=== PATIENT | male | born 1950 | race Caucasian/White ===

== ENCOUNTER 2016-11-20 14:41 | Inpatient (IN) | payer OTHER ==
[2016-11-20] MEDS ORDERED: VANCOMYCIN 1,000 MG in DEXTROSE 5%-WATER - 250 ML IVPB ONE (16:18)
--- NOTE | 2016-11-20 16:22 | PDOC ---
History of Present Illness - General Chief Complaint: Wound Stated Complaint: (WOUND CARE SENT) Time Seen by Provider: 11/20/16 15:25 History Source: Patient Exam Limitations: Clinical Condition - History of Present Illness Initial Comments: 11/20/16 16:29 Patient is a 66 year old male with significant PMH of diabetic foot ulcer, HTN, HLD, Viral Hepatitis? & [place] (June 2016) who presents to ED from wound care for lethargy/altered mental status. Patient has a chronic left foot ulcer that has opened up in last few days. When seen in wound care, patient was noted to be more lethargic & less verbal than usual. He had a mild fever of 100.8 so they sent him down to ED. He is verbally responsive and aware of his situation, but states he is more tired than usual and feels feverish. Denes cough, dysuria , headache, SOB, chest pain or any other ROS. Left foot ulcer with reddish-yellow pus output. Chronic venous changes bilaterally but more swollen and warm at left foot up to knee. Past History - Travel Traveled outside of the country in the last 30 days: No Close contact w/someone who was outside of country & ill: No - Past Medical History Allergies/Adverse Reactions: Allergies Allergy/AdvReac Type Severity Reaction Status Date / Time No Known Allergies Allergy Verified 11/20/16 14:57 Home Medications: Ambulatory Orders Unobtainable [Unobtainable] 11/20/16 Diabetes: Yes GI Disorders: Yes (GERD, chronic viral hepatitis) Disorders: Yes (BPH) HTN: Yes Hypercholesterolemia: Yes Psychiatric Problems: Yes (Major depressive disorder, Schizoaffective) - Surgical History Appendectomy: Yes Orthopedic Surgery: Yes (left hallux amp, left knee repair) - Immunization History Immunization Up to Date: Yes - Psycho/Social/Smoking Cessation Hx Anxiety: No Suicidal Ideation: No Smoking Status: No Smoking History: Current every day smoker Have you smoked in the past 12 months: Yes Number of Cigarettes Smoked Daily: 6 Information on smoking cessation initiated: No 'Breaking Loose' booklet given: 06/23/16 Hx Alcohol Use: No Drug/Substance Use Hx: Yes (Heroin) Substance Use Type: Heroin Hx Substance Use Treatment: Yes Review of Systems - Review of Systems Able to Perform ROS?: Yes Is the patient limited Maori proficient: No Constitutional: Yes: Fever, Malaise, Weakness. No: Chills HEENTM: No: Blurred Vision, Nose Congestion, Throat Pain, Difficulty Swallowing Respiratory: No: Cough, Shortness of Breath, Wheezing, Productive cough Cardiac (ROS): No: Chest Pain, Irregular Heart Rate, Lightheadedness, Palpitations, Syncope ABD/GI: No: Constipated, Diarrhea, Nausea, Vomiting : No: Burning, Dysuria Musculoskeletal: No: Back Pain Integumentary: Yes: Change in Color, Erythema. No: Bruising Neurological: No: Headache, Numbness, Tingling, Tremors All Other Systems: Reviewed and Negative *Physical Exam - Vital Signs Last Vital Signs Temp Pulse Resp BP Pulse Ox 100.8 F H 73 17 135/73 94 L 11/20/16 14:57 11/20/16 14:57 11/20/16 14:57 11/20/16 14:57 11/20/16 14:57 - Physical Exam General Appearance: Yes: Appropriately Dressed (but dirty shirt and ripped socks ), Obese, Other (lethargic) HEENT: positive: EOMI, RAN, Pharynx Normal Neck: positive: Trachea midline, Normal Thyroid, Supple Respiratory/Chest: positive: Lungs Clear, Normal Breath Sounds Cardiovascular: positive: Regular Rhythm, Regular Rate, S1, S2 Gastrointestinal/Abdominal: positive: Normal Bowel Sounds, Flat, Soft Musculoskeletal: positive: Normal Inspection Extremity: positive: Other (chronic venous changes in bilateral LE; increased warmth/tenderness/erythema left foot up to kneecap; oozing left medial foot ulcer; +1 palpable pulses bilateral feet) Neurologic: positive: health counselor II-XII NML intact, Motor Strength 5/5. negative: Fully Oriented, Normal Mood/Affect ED Treatment Course - LABORATORY CBC & Chemistry Diagram: 11/20/16 16:35 - RADIOLOGY Radiology Studies Ordered: Category Date Time Status CHEST X-RAY PORTABLE* [RAD] Stat Radiology 11/20/16 15:58 Ordered FOOT-LEFT [RAD] Stat Radiology 11/20/16 16:18 Ordered DUPLEX ART. LOWER COMPL US [US] Stat Ultrasound 11/20/16 16:17 Ordered DUPLEX VASCUL US-1 LEG [US] Stat Ultrasound 11/20/16 16:17 Ordered Medical Decision Making - Medical Decision Making 11/20/16 16:53 Patient is unable to provide meaningful history due to clinical condition. Wound culture, foot XRay, arterial & venous US imaging ordered on left foot. Ordered CBC, CMP, Lactic acid, cultures, CXR to r/o other etiologies of lethargy & fever. Consulted ID after starting Vancomycin & Zosyn. *DC/Admit/Observation/Transfer Diagnosis at time of Disposition: Diabetic foot ulcer - Discharge Dispostion Admit: Yes
[2016-11-20] MEDS ORDERED: ACETAMINOPHEN 500 MG TABLET (FP) PO ONE (16:48)
[2016-11-20] MEDS ORDERED: ACETAMINOPHEN 325 MG TABLET (FP) ONE (16:50)
[2016-11-20] MEDS ORDERED: PIPERACILLIN/TAZOB 3.375 GM 50 ML IVPB ONE (16:50)
[2016-11-20] MEDS ORDERED: VANCOMYCIN 1 GRAM (PRE-DOCKED) 250 ML IVPB ONE (16:50)
[2016-11-20 17:05] LABS: BASOPHIL 0.6 % (0-2.0); MCH 25.8 pg (25.7-33.7); MCHC 32.3 g/dl (32.0-35.9); MEAN PLT VOLUME 8.3 fl (7.5-11.1); NEUTROPHILS 83.3 % (42.8-82.8); PLATELET COUNT 297 K/MM3 (134-434); RDW 16.9 % (11.9-15.9); WHITE BLOOD COUNT 9.9 K/mm3 (4.0-10.0)
[2016-11-20 17:10] LABS: ALK PHOS 92 U/L (45-117); ANION GAP 8 (8-16); BILIRUBIN,TOTAL 0.3 mg/dL (0.2-1.0); CALCIUM 9.1 mg/dL (8.5-10.1); CO2 30 mmol/L (21-32); GLUCOSE,RANDOM 138 mg/dL (74-106); SGPT/ALT 12 U/L (12-78); TOT PROT 7.3 g/dl (6.4-8.2)
[2016-11-20 17:18] LABS: SGOT/AST 20 U/L (15-37)
[2016-11-20] MEDS: PIPERACILLIN/TAZOB 3.375 GM/50 ML PRE-DOCKED IVPB SCH (18:20)
[2016-11-20] MEDS ORDERED: ACETAMINOPHEN 325 MG TABLET (FP) PO PRN (21:43)
[2016-11-20] MEDS: INSULIN SLIDING SCALE (NOVOLOG) 1 VIAL SQ SCH (22:16)
[2016-11-20] MEDS ORDERED: ATORVASTATIN CA 40 MG TABLET (FP) ONE (22:31)
[2016-11-20] MEDS ORDERED: GABAPENTIN 100 MG CAPSULE (FP) ONE (22:32)
[2016-11-20] MEDS ORDERED: INSULIN DETEMIR 100 UNITS/ML MDV SQ ONE (22:34)
[2016-11-20] MEDS: INSULIN DETEMIR 100 UNITS/ML MDV SQ SCH (22:42)
[2016-11-20] MEDS: GABAPENTIN 100 MG CAPSULE (FP) PO SCH (22:43)
[2016-11-20] MEDS: ATORVASTATIN CA 10 MG TABLET (FP) PO SCH (22:43)
[2016-11-20 22:48] LABS: URINE APPEARANCE CLEAR; URINE BILIRUBIN NEGATIVE (NEGATIVE); URINE BLOOD NEGATIVE (NEGATIVE); URINE COLOR YELLOW; URINE GLUCOSE (UA) NEGATIVE (NEGATIVE); URINE KETONE TRACE (NEGATIVE); URINE LEUK ESTERASE NEGATIVE (NEGATIVE); URINE NITRITE NEGATIVE (NEGATIVE); URINE PROTEIN NEGATIVE (NEGATIVE); URINE UROBILINOGEN 2.0 E.U/dl E.U./dl (0.2-1.0)
[2016-11-20] MEDS: traZODone HCL 50 MG TABLET (FP) PO SCH (23:15)
[2016-11-20] MEDS: CARBIDOPA/LEVODOPA 25/250 TABLET (FP) PO SCH (23:15)
[2016-11-20] MEDS: PERPHENAZINE 4 MG TABLET PO SCH (23:15)
[2016-11-21] MEDS ORDERED: PIPERACILLIN/TAZOB 3.375 GM 50 ML IVPB ONE ×2 (02:02→10:00)
[2016-11-21] MEDS: PIPERACILLIN/TAZOB 3.375 GM/50 ML PRE-DOCKED IVPB SCH ×3 (02:10→17:12)
[2016-11-21] MEDS ORDERED: METHADONE HCL 5 MG TABLET PO SCH (06:00)
[2016-11-21] MEDS ORDERED: HEMOQUE TEST 1 EACH EACH ONE (06:09)
[2016-11-21] MEDS: INSULIN SLIDING SCALE (NOVOLOG) 1 VIAL SQ SCH ×4 (06:20→22:40)
[2016-11-21] MEDS: GABAPENTIN 100 MG CAPSULE (FP) PO SCH ×3 (06:32→22:13)
[2016-11-21] MEDS: CARBIDOPA/LEVODOPA 25/250 TABLET (FP) PO SCH ×3 (06:33→22:13)
[2016-11-21] MEDS: PERPHENAZINE 4 MG TABLET PO SCH ×3 (06:33→22:12)
[2016-11-21 07:16] LABS: BASOPHIL 0.7 % (0-2.0); MCH 26.4 pg (25.7-33.7); MCHC 32.5 g/dl (32.0-35.9); MEAN CELL VOLUME 81.1 fl (80-96); MEAN PLT VOLUME 7.9 fl (7.5-11.1); NEUTROPHILS 66.6 % (42.8-82.8); PLATELET COUNT 285 K/MM3 (134-434); RDW 16.8 % (11.9-15.9); WHITE BLOOD COUNT 6.3 K/mm3 (4.0-10.0)
[2016-11-21 07:41] LABS: ALBUMIN 1.9 g/dl (3.4-5.0); ANION GAP 5 (8-16); CALCIUM 8.6 mg/dL (8.5-10.1); CO2 36 mmol/L (21-32); GLUCOSE,RANDOM 68 mg/dL (74-106); MAGNESIUM 1.6 mg/dL (1.8-2.4)
[2016-11-21 07:46] LABS: ALK PHOS 89 U/L (45-117); BILIRUBIN,TOTAL 0.4 mg/dL (0.2-1.0); CREATININE 0.8 mg/dL (0.7-1.3); SGOT/AST 22 U/L (15-37); SGPT/ALT < 6 U/L (12-78)
[2016-11-21] MEDS: ENOXAPARIN NA (PORCINE) 40 MG/0.4 ML DISP.SYRIN SQ SCH (09:30)
[2016-11-21] MEDS: FUROSEMIDE 40 MG TABLET (FP) PO SCH (09:30)
[2016-11-21] MEDS: METOPROLOL SUCCINATE 25 MG TAB.SR.24H (FP) PO SCH (09:30)
[2016-11-21] MEDS: CLOPIDOGREL BISULFATE 75 MG TABLET (FP) PO SCH (09:30)
[2016-11-21] MEDS: CITALOPRAM HYDROBROMIDE 20 MG TABLET (FP) PO SCH (09:30)
[2016-11-21] MEDS: TAMSULOSIN HCL 0.4 MG CAP.ER.24H (FP) PO SCH (09:30)
[2016-11-21] MEDS: METOLAZONE 2.5 MG TABLET (FP) PO SCH (09:30)
[2016-11-21] MEDS ORDERED: METHADONE HCL 10 MG TABLET ONE (09:59)
[2016-11-21] MEDS ORDERED: METHADONE HCL 40 MG DISPERSABLE TABLET ONE (10:00)
--- NOTE | 2016-11-21 10:34 | EKG ---
Test Reason : Blood Pressure : / mmHG Vent. Rate : 062 BPM Atrial Rate : 062 BPM P-R Int : 108 ms QRS Dur : 092 ms QT Int : 430 ms P-R-T Axes : 000 -12 043 degrees QTc Int : 436 ms SINUS RHYTHM WITH SHORT UT WITH PREMATURE SUPRAVENTRICULAR COMPLEXES OTHERWISE NORMAL ECG WHEN COMPARED WITH ECG OF 10-JUL-2016 13:49, PREMATURE SUPRAVENTRICULAR COMPLEXES ARE NOW PRESENT Confirmed by SAUD GLASER, NELLIE ([id number]) on 11/21/2016 10:34:07 AM Referred By: Confirmed By:NELLIE VILLAVICENCIO MD
[2016-11-21] MEDS: METHADONE 40 MG, METHADONE 30 MG PO SCH (10:36)
[2016-11-21] MEDS: INSULIN DETEMIR 100 UNITS/ML MDV SQ SCH ×2 (11:40→22:14)
[2016-11-21] MEDS ORDERED: INSULIN DETEMIR 100 UNITS/ML MDV SQ ONE (11:51)
[2016-11-21 15:56] VITALS: BMI 38.3
[2016-11-21] MEDS ORDERED: INSULIN (NOVOLOG) ASPART 100 UNITS/ML 10ML VIAL ONE ×2 (16:11→17:28)
--- NOTE | 2016-11-21 17:25 | HP ---
Admitting History and Physical - Primary Care Physician PCP: Saravanan Maldonado - Admission Chief Complaint: left foot wound History of Present Illness: ER HISTORY - History of Present Illness Initial Comments: 11/20/16 16:29 Patient is a 66 year old male with significant PMH of diabetic foot ulcer, HTN, HLD, Viral Hepatitis? & [place] (June 2016) who presents to ED from wound care for lethargy/altered mental status. Patient has a chronic left foot ulcer that has opened up in last few days. When seen in wound care, patient was noted to be more lethargic & less verbal than usual. He had a mild fever of 100.8 so they sent him down to ED. He is verbally responsive and aware of his situation, but states he is more tired than usual and feels feverish. Denes cough, dysuria , headache, SOB, chest pain or any other ROS. Left foot ulcer with reddish-yellow pus output. Chronic venous changes bilaterally but more swollen and warm at left foot up to knee. Pt seen by me on the floors Known from [facility]-- he was on Keflex , Bactrim DS for left foot ulcer, being seen by wound care weekly here. Admitted for fever and AMS Today awake and responsive Has pain in left foot - Past Medical History SHUTDOWN PLANNER: Yes: Peripheral Neuropathy Cardiovascular: Yes: HTN, Hyperlipdemia Gastrointestinal: Yes: GERD Hepatobiliary: Yes: Other (chronic viral heptitis, unspecified) Renal/: Yes: BPH Psych: Yes: Addictions, Anxiety, Depression, Schizophrenia (schizoaffective), Other (Schizoaffective disorder) Musculoskeletal: Yes: Osteoarthritis ENT: Yes: Allergic Rhinitis, Sinusitis Endocrine: Yes: Diabetes Mellitus, Other (morbid obesity) Dermatology: Yes: Cellulitis - Past Surgical History Past Surgical History: Yes: Amputation (toe L first), Joint Replacement (knee x 2) - Smoking History Smoking history: Current every day smoker Have you smoked in the past 12 months: Yes Aproximately how many cigarettes per day: 6 - Alcohol/Substance Use Hx Alcohol Use: No History of Substance Use: reports: Heroin - Social History History of Recent Travel: No Home Medications - Allergies Allergies/Adverse Reactions: Allergies Allergy/AdvReac Type Severity Reaction Status Date / Time No Known Allergies Allergy Verified 11/20/16 14:57 - Home Medications Home Medications: Ambulatory Orders Acetaminophen W/ Codeine #3 [Tylenol # 3 -] 1 tab PO BID PRN 11/20/16 Ammonium Lactate Lotion [Lac-Hydrin 12] 1 applic TP BID 11/20/16 Aspirin [[place] Aspirin] 81 mg PO DAILY 11/20/16 Calcium Carbonate/Vitamin D3 [Calcium 500 + Vit D3 400 Tab] 1 each PO BID Carbidopa/Levodopa [Carbidopa-Levodopa 25-250 Tab] 1 each PO TID 11/20/16 Citalopram Hydrobromide [Celexa -] 20 mg PO DAILY 11/20/16 Clopidogrel Bisulfate [Plavix -] 75 mg PO DAILY 11/20/16 Flunisolide 25 mcg NS DAILY 11/20/16 Gabapentin [Neurontin -] 300 mg PO Q8H 11/20/16 Insulin Lispro Protamin/Lispro [Humalog Mix 75-25 Kwikpen] 15 unit SQ BID Ketoconazole 2% Cream [Nizoral 2% Cream -] 1 applic TP DAILY 11/20/16 Magnesium Hydrox 2400MG/30Ml [Milk of Magnesia -] 30 ml PO Q8H PRN 11/20/16 Melatonin 3 mg PO HS 11/20/16 Metformin HCl [Metformin HCl ER] 1,000 mg PO DAILY 11/20/16 Methadone HCl 70 mg PO DAILY 11/20/16 Metolazone [Zaroxolyn -] 2.5 mg PO DAILY 11/20/16 Metoprolol Tartrate [Lopressor -] 25 mg PO DAILY 11/20/16 Mv,Ca,Fe,Min/FA/Guarana/Caff [One Daily Tablet] 1 each PO DAILY 11/20/16 Perphenazine [Trilafon] 8 mg PO TID 11/20/16 Polyethylene Glycol 3350 [Miralax (For Bowel Prep) -] 17 gm PO DAILY 11/20/16 Potassium Chloride [K-Dur -] 20 meq PO DAILY 11/20/16 Sennosides [Senna] 2 tab PO HS 11/20/16 Simvastatin [Zocor -] 40 mg PO HS 11/20/16 Tamsulosin HCl [Flomax] 0.4 mg PO DAILY 11/20/16 Trazodone HCl 200 mg PO HS 11/20/16 Family Disease History - Family Disease History Family Disease History: [place]: Father Review of Systems - Review of Systems Constitutional: reports: Fever, Weakness. denies: Chills Physical Examination Vital Signs: Vital Signs Temperature 97.7 F 11/21/16 07:25 Pulse Rate 55 L 11/21/16 14:20 Respiratory Rate 16 11/21/16 14:20 Blood Pressure 116/60 11/21/16 14:20 O2 Sat by Pulse Oximetry (%) 99 11/21/16 14:20 Constitutional: Yes: No Distress, Calm Respiratory: Yes: Diminished Gastrointestinal: Yes: Normal Bowel Sounds, Soft, Abdomen, Obese. No: Distention, Tenderness Extremities: Yes: Other (left leg dressing) Edema: Yes Edema: LLE: 1+, RLE: 1+ Neurological: Yes: Alert Labs: CBC, BMP 11/21/16 06:00 11/21/16 06:00 Imaging - Results Chest X-ray: Image Reviewed (no infiltrate) Ultrasound: Report Reviewed EKG: Image Reviewed (NSR) Problem List - Problems (1) Diabetic foot ulcer Code(s): E11.621 - TYPE 2 DIABETES MELLITUS WITH FOOT ULCER L97.509 - NON-PRESSURE CHRONIC ULCER OTH PRT UNSP FOOT W UNSP SEVERITY Qualifiers: (2) CAD (coronary artery disease) Code(s): I25.10 - ATHSCL HEART DISEASE OF [place] CORONARY ARTERY W/O ANG PCTRS Qualifiers: (3) Diabetes mellitus Code(s): E11.9 - TYPE 2 DIABETES MELLITUS WITHOUT COMPLICATIONS Qualifiers: Diabetes mellitus type: type 2 Diabetes mellitus complication status: with circulatory complication Diabetes mellitus complication detail: with other circulatory complications Diabetes mellitus nursing home insulin use: with terminal carman use Qualified Code(s): E11.59 - Type 2 diabetes mellitus with other circulatory complications (4) Hypertension Code(s): I10 - ESSENTIAL (PRIMARY) HYPERTENSION (5) Obesity Code(s): E66.9 - OBESITY, UNSPECIFIED Assessment/Plan PLAN iv antibiotics ID , Podiatry eval Pt had h/o left foot osteomyelitis back in May last year and had multiple bacterial growth in the ulcer- was on Vanco for 6 weeks. wound care monitor blood sugars blood cultures drawn check Vanco level DVT prophylaxis
[2016-11-21] MEDS ORDERED: VANCOMYCIN 1,000 MG in DEXTROSE 5%-WATER - 250 ML IVPB SCH (17:45)
[2016-11-21] MEDS ORDERED: VANCOMYCIN 1 GRAM (PRE-DOCKED) 1,000 MG/250 ML BAG IVPB ONE (18:00)
[2016-11-21] MEDS: traZODone HCL 50 MG TABLET (FP) PO SCH (22:12)
[2016-11-21] MEDS: ATORVASTATIN CA 10 MG TABLET (FP) PO SCH (22:12)
[2016-11-22] MEDS: PIPERACILLIN/TAZOB 3.375 GM/50 ML PRE-DOCKED IVPB SCH ×4 (01:19→22:01)
[2016-11-22] MEDS ORDERED: METHADONE HCL 40 MG DISPERSABLE TABLET ONE (04:31)
[2016-11-22] MEDS ORDERED: METHADONE HCL 10 MG TABLET ONE (04:31)
[2016-11-22] MEDS: METHADONE 40 MG, METHADONE 30 MG PO SCH (05:47)
[2016-11-22] MEDS: GABAPENTIN 100 MG CAPSULE (FP) PO SCH ×3 (05:47→22:02)
[2016-11-22] MEDS: PERPHENAZINE 4 MG TABLET PO SCH ×3 (05:47→22:03)
[2016-11-22] MEDS: CARBIDOPA/LEVODOPA 25/250 TABLET (FP) PO SCH ×3 (05:48→22:03)
[2016-11-22] MEDS: TAMSULOSIN HCL 0.4 MG CAP.ER.24H (FP) PO SCH (08:30)
[2016-11-22] MEDS: INSULIN SLIDING SCALE (NOVOLOG) 1 VIAL SQ SCH ×4 (09:15→22:04)
--- NOTE | 2016-11-22 09:42 | PN ---
Progress Note (short form) - Note Progress Note: ID consult dictated imp/reccd 66 year old man admitted from Wound care- noted to have new abscess at left ankle, sent to wound care abscess was drained and he was admitted for further care no fevers or chills recent treatment in July for 6 weeks via picc line for osteo of left foot- diabetic foot infection left foot s/p drainage of abscess suspect needs further debridement concern for osteo/septic arthritis on xray would continue vancomycin and zosyn w/u cultures from wound care mri to include ankle Problem List - Problems (1) Diabetic foot ulcer Code(s): E11.621 - TYPE 2 DIABETES MELLITUS WITH FOOT ULCER L97.509 - NON-PRESSURE CHRONIC ULCER OTH PRT UNSP FOOT W UNSP SEVERITY Qualifiers: (2) Abscess Code(s): L02.91 - CUTANEOUS ABSCESS, UNSPECIFIED (3) Osteomyelitis Code(s): M86.9 - OSTEOMYELITIS, UNSPECIFIED
--- NOTE | 2016-11-22 09:55 | PN ---
Progress Note (short form) - Note Progress Note: Subjective Patient seen and examined. Chart reviewed. Comfortable. Denies cp or SOB. Objective Last Vital Signs Temp Pulse Resp BP Pulse Ox 97.5 F L 50 L 20 160/65 97 11/22/16 06:00 11/22/16 06:00 11/22/16 06:00 11/22/16 06:00 11/21/16 20:37 Labs: CBC, BMP 11/21/16 06:00 11/21/16 06:00 Problem List - Problems (1) Diabetic foot ulcer Code(s): E11.621 - TYPE 2 DIABETES MELLITUS WITH FOOT ULCER L97.509 - NON-PRESSURE CHRONIC ULCER OTH PRT UNSP FOOT W UNSP SEVERITY Qualifiers: (2) CAD (coronary artery disease) Code(s): I25.10 - ATHSCL HEART DISEASE OF [place] CORONARY ARTERY W/O ANG PCTRS Qualifiers: (3) Diabetes mellitus Code(s): E11.9 - TYPE 2 DIABETES MELLITUS WITHOUT COMPLICATIONS Qualifiers: Diabetes mellitus type: type 2 Diabetes mellitus complication status: with circulatory complication Diabetes mellitus complication detail: with other circulatory complications Diabetes mellitus residential insulin use: with residential use Qualified Code(s): E11.59 - Type 2 diabetes mellitus with other circulatory complications (4) Hypertension Code(s): I10 - ESSENTIAL (PRIMARY) HYPERTENSION (5) Obesity Code(s): E66.9 - OBESITY, UNSPECIFIED Physical Exam Constitutional: Yes: No Distress, Calm Respiratory: Yes: Diminished Gastrointestinal: Yes: Normal Bowel Sounds, Soft, Abdomen, Obese. No: Distention, Tenderness Extremities: Yes: Other (left leg dressing) Edema: Yes Edema: LLE: 1+, RLE: 1+ Neurological: Yes: Alert Assessment and Plan Continue abx Vanco level MRI pending Follow up labs Will consult vascular surgeon as he has evidence of circulation issues Also strongly certified alcohol drug counselor him again on quitting smoking Blood work also showed he is anemic No obvious bleeding Will check stool for occult Will follow Patient does not want any nicotine patch Documentation prepared by Salina Morales, acting as a medical office receptionist for Saravanan Maldonado MD.
[2016-11-22] MEDS ORDERED: INSULIN (NOVOLOG) ASPART 100 UNITS/ML 10ML VIAL ONE (10:47)
--- NOTE | 2016-11-22 10:47 | CONS ---
DATE OF CONSULTATION: REQUESTING PHYSICIAN: Christine Bear MD HISTORY: This is a 66-year-old man with a history of diabetes, hypertension. He resides at the [facility]. He had a history of chronic problems with his left foot. He is status post amputation of the 1st great toe in 2008. He was admitted in the fall with a necrotic ulcer of the left foot that was debrided. He was treated with osteomyelitis with a PICC line following which he was [facility] for the foot ulcer. He was [facility] to the [facility] with a mild fever of 100.8. In wound care he was noted to have an abscess of his foot that was opened and drained with purulent, foul-smelling drainage. He was sent to the emergency room. He currently is awake and alert. He was started on vancomycin and Zosyn. I am asked to see him for further recommendations. He notes some pain but states it is reduced in his foot. PAST MEDICAL HISTORY: Notable for peripheral neuropathy, hypertension, hyperlipidemia, GERD. He has a history of viral hepatitis, BPH, schizoaffective disorder, depression, anxiety, osteoarthritis, sinusitis, diabetes, history of prior osteomyelitis of the foot. He is status post amputation of the 1st toe in 2008, and he has had arthroscopy of the left knee twice. FAMILY HISTORY: Noncontributory. SOCIAL HISTORY: He resides [facility] the [facility] because he states he is homeless. He is a current smoker. There is no history of alcohol use. He is a former heroin user. ALLERGIES: He has no known drug allergies. MEDICATIONS: At the penitentiary include Lac-Hydrin, aspirin, calcium, carbidopa/levodopa, Celexa, Plavix, gabapentin, insulin, melatonin, metformin, methadone, metolazone, potassium, Senna, Zocor, Flomax, and Trazodone. He was on Keflex and Bactrim. REVIEW OF SYSTEMS: He to me denies any fever or chills though in the history and physical was noted to have temperature of 100.8 at the [facility]. He states, per the history and physical, the foot ulcer has opened up in the last several days. He has no abdominal pain or chest pain. No nausea, vomiting, diarrhea, or dysuria. PHYSICAL EXAMINATION: General: He is resting comfortably. Vital Signs: Temperature 97.5, T-max 100.8, pulse 50, blood pressure 160/65, respiratory rate 20. HEENT: He is normocephalic. His eyes are anicteric. Neck: Supple. Lungs: Clear to auscultation. Heart: Regular rate and rhythm. Abdomen: Soft and nontender. Extremities: Notable for a foul-smelling ulcer at the left ankle. He has had large, open defect on the lower foot. The toe is well healed. Per the wound care note, when he was seen in wound care on the , he was noted to have an abscess at the medial ankle with fluctuance, and it was drained. There was 10 mL of purulent drainage obtained, and cultures were obtained. LABORATORIES: Notable for white count 6.3, hemoglobin 8.9, platelets 285, sedimentation rate greater than 130, CRP 20. BUN 17, creatinine 0.8. LFTs are normal. Albumin 1.9. Urinalysis is notable for trace ketones. Blood cultures are negative. Urine culture is negative. Wound cultures are pending. Duplex is negative for DVT. X-ray of the foot is notable for soft tissue defects. Cannot exclude associated osteomyelitis with Charcot changes. In summary, this is a 66-year-old man who presented with a new abscess at his left ankle status post drainage. He has a diabetic foot infection status post drainage of abscess. I suspect he needs further debridement as the wound is still purulent and underminded. Concern for osteomyelitis and septic arthritis on x-ray. I would continue vancomycin and Zosyn. Would follow up cultures from wound care. MRI to include the ankle. Further recommendations to follow based on his clinical course. ROSA KING M.D. [id number]
[2016-11-22] MEDS: FUROSEMIDE 40 MG TABLET (FP) PO SCH (10:51)
[2016-11-22] MEDS: CLOPIDOGREL BISULFATE 75 MG TABLET (FP) PO SCH (10:51)
[2016-11-22] MEDS: METOPROLOL SUCCINATE 25 MG TAB.SR.24H (FP) PO SCH (10:52)
[2016-11-22] MEDS: INSULIN DETEMIR 100 UNITS/ML MDV SQ SCH ×2 (10:52→22:03)
[2016-11-22] MEDS: METOLAZONE 2.5 MG TABLET (FP) PO SCH (10:52)
[2016-11-22] MEDS: CITALOPRAM HYDROBROMIDE 20 MG TABLET (FP) PO SCH (10:52)
[2016-11-22] MEDS: ENOXAPARIN NA (PORCINE) 40 MG/0.4 ML DISP.SYRIN SQ SCH (10:53)
[2016-11-22] MEDS: VANCOMYCIN 1,250 MG in DEXTROSE 5%-WATER - 250 ML IVPB SCH ×2 (12:00→22:50)
--- NOTE | 2016-11-22 15:34 | CONSULT ---
Consult Consult Specialty:: Podiatry/Wound Care Reason for Consultation:: Left Ankle abscess and Left foot wound - History of Present Illness Chief Complaint: Wounds on left lower extremity History of Present Illness: Patient well known to me seen in on 11/20/2016 referred as an emergency visit form his NH. He had an abscess on the medial aspect of his left ankle which was I&D under aseptic technique. Deep wound cultures were taken and are pending. He was sent to the ED for admission. Seen today at bedside. - History Source History Provided By: Patient Limitations to Obtaining History: No Limitations - Past Medical History OUTSIDE SALES CONSULTANT: Yes: Peripheral Neuropathy Cardio/Vascular: Yes: HTN, Hyperlipdemia Gastrointestinal: Yes: GERD Hepatobiliary: Yes: Other (chronic viral heptitis, unspecified) Renal/: Yes: BPH Psych: Yes: Addictions, Anxiety, Depression, Schizophrenia (schizoaffective), Other (Schizoaffective disorder) Musculoskeletal: Yes: Osteoarthritis ENT: Yes: Allergic Rhinitis, Sinusitis Endocrine: Yes: Diabetes Mellitus, Other (morbid obesity) Dermatology: Yes: Cellulitis Additional Medical History: chronic venous stasis and LLE foot wound - Past Surgical History Past Surgical History: Yes: Amputation (toe L first), Joint Replacement (knee x 2) - Alcohol/Substance Use Hx Alcohol Use: No History of Substance Use: reports: Heroin - Smoking History Smoking history: Current every day smoker Have you smoked in the past 12 months: Yes Aproximately how many cigarettes per day: 6 - Social History Usual Living Arrangement: Assisted Living History of Recent Travel: No Home Medications - Allergies Allergies/Adverse Reactions: Allergies Allergy/AdvReac Type Severity Reaction Status Date / Time No Known Allergies Allergy Verified 11/20/16 14:57 - Home Medications Home Medications: Ambulatory Orders Acetaminophen W/ Codeine #3 [Tylenol # 3 -] 1 tab PO BID PRN 11/20/16 Ammonium Lactate Lotion [Lac-Hydrin 12] 1 applic TP BID 11/20/16 Aspirin [[place] Aspirin] 81 mg PO DAILY 11/20/16 Calcium Carbonate/Vitamin D3 [Calcium 500 + Vit D3 400 Tab] 1 each PO BID Carbidopa/Levodopa [Carbidopa-Levodopa 25-250 Tab] 1 each PO TID 11/20/16 Citalopram Hydrobromide [Celexa -] 20 mg PO DAILY 11/20/16 Clopidogrel Bisulfate [Plavix -] 75 mg PO DAILY 11/20/16 Flunisolide 25 mcg NS DAILY 11/20/16 Gabapentin [Neurontin -] 300 mg PO Q8H 11/20/16 Insulin Lispro Protamin/Lispro [Humalog Mix 75-25 Kwikpen] 15 unit SQ BID Ketoconazole 2% Cream [Nizoral 2% Cream -] 1 applic TP DAILY 11/20/16 Magnesium Hydrox 2400MG/30Ml [Milk of Magnesia -] 30 ml PO Q8H PRN 11/20/16 Melatonin 3 mg PO HS 11/20/16 Metformin HCl [Metformin HCl ER] 1,000 mg PO DAILY 11/20/16 Methadone HCl 70 mg PO DAILY 11/20/16 Metolazone [Zaroxolyn -] 2.5 mg PO DAILY 11/20/16 Metoprolol Tartrate [Lopressor -] 25 mg PO DAILY 11/20/16 Mv,Ca,Fe,Min/FA/Guarana/Caff [One Daily Tablet] 1 each PO DAILY 11/20/16 Perphenazine [Trilafon] 8 mg PO TID 11/20/16 Polyethylene Glycol 3350 [Miralax (For Bowel Prep) -] 17 gm PO DAILY 11/20/16 Potassium Chloride [K-Dur -] 20 meq PO DAILY 11/20/16 Sennosides [Senna] 2 tab PO HS 11/20/16 Simvastatin [Zocor -] 40 mg PO HS 11/20/16 Tamsulosin HCl [Flomax] 0.4 mg PO DAILY 11/20/16 Trazodone HCl 200 mg PO HS 11/20/16 Family Disease History - Family Disease History Family Disease History: [place]: Father Review of Systems - Review of Systems Constitutional: reports: No Symptoms Eyes: reports: No Symptoms HENT: reports: No Symptoms Neck: reports: No Symptoms Cardiovascular: reports: No Symptoms Respiratory: reports: No Symptoms Gastrointestinal: reports: No Symptoms Genitourinary: reports: No Symptoms Musculoskeletal: reports: Other (S/P Left partial first Ray Amp) Integumentary: reports: Wound (See note) Neurological: reports: No Symptoms Endocrine: reports: No Symptoms Hematology/Lymphatic: reports: No Symptoms Psychiatric: reports: No Symptoms Physical Exam Vital Signs: Vital Signs Temperature 98.1 F 11/22/16 15:00 Pulse Rate 50 L 11/22/16 15:00 Respiratory Rate 18 11/22/16 15:00 Blood Pressure 106/59 11/22/16 15:00 O2 Sat by Pulse Oximetry (%) 97 11/22/16 09:00 Constitutional: Yes: Well Nourished, No Distress, Calm Extremities: Yes: Other (S/P Partiel first Ray amp Left foot) Edema: LLE: Trace, RLE: Trace Peripheral Pulses WNL: Yes (Weak) Integumentary: Yes: Venous Stasis Changes Wound/Incision: Yes: Dressing Dry and Intact (Left: Upon removal there are two wounds the original wound plantarly mixed fibro granular base withno drainge and no mal odor, and the new wound medial ankle no drainge no mal odor some necrotic tissue. No drainge expresed form wound proiximally or distally.) Neurological: Yes: WNL, Cran Nerves II-XII Intact, Loss of Sensation (Secondary to DM) Psychiatric: Yes: Alert Labs: CBC, BMP 11/21/16 06:00 11/21/16 06:00 Imaging - Results Chest X-ray: Report Reviewed X-ray: Image Reviewed Ultrasound: Report Reviewed Problem List - Problems (1) Abscess of left foot Assessment/Plan: Patetin 2 days S/P I&D medial left ankle, looks much better as compared to his initial presentation Code(s): L02.612 - CUTANEOUS ABSCESS OF LEFT FOOT (2) Osteomyelitis Assessment/Plan: IV Abx Code(s): M86.9 - OSTEOMYELITIS, UNSPECIFIED (3) Controlled diabetes mellitus with foot ulcer, with long-term current use of insulin Assessment/Plan: Local wound care Santyl dressing daily order written Code(s): E11.621 - TYPE 2 DIABETES MELLITUS WITH FOOT ULCER L97.509 - NON-PRESSURE CHRONIC ULCER OTH PRT UNSP FOOT W UNSP SEVERITY Z79.4 - HALFWAY (CURRENT) USE OF INSULIN Qualifiers: (4) Hypertension Assessment/Plan: As per primary team Code(s): I10 - ESSENTIAL (PRIMARY) HYPERTENSION (5) Methadone dependence Assessment/Plan: As per primary team Code(s): F11.20 - OPIOID DEPENDENCE, UNCOMPLICATED (6) Obesity Assessment/Plan: As per primary team Code(s): E66.9 - OBESITY, UNSPECIFIED Assessment/Plan 1) [place] wound care for now consiting of Santly 2) Will Follow may need wash out in the Operating room will wait for MRI result since no active drainage today 3) Will follow
--- NOTE | 2016-11-22 16:51 | PN ---
Progress Note (short form) - Note Progress Note: Vascular Surgery Pt seen and examined. Just recently drained by podiatry. MRI ordered as well. Palpable pulses. Podiatry following. Will be on standby if vascular is needed. Hugh Prieto DO
[2016-11-22] MEDS ORDERED: VANCOMYCIN 1 GRAM (PRE-DOCKED) 1,000 MG/250 ML BAG IVPB SCH (18:00)
[2016-11-22] MEDS: traZODone HCL 50 MG TABLET (FP) PO SCH (22:02)
[2016-11-22] MEDS: ATORVASTATIN CA 10 MG TABLET (FP) PO SCH (22:06)
[2016-11-23] MEDS: PIPERACILLIN/TAZOB 3.375 GM/50 ML PRE-DOCKED IVPB SCH ×4 (02:07→21:29)
[2016-11-23] MEDS: INSULIN SLIDING SCALE (NOVOLOG) 1 VIAL SQ SCH ×4 (06:08→21:28)
[2016-11-23] MEDS ORDERED: METHADONE HCL 10 MG TABLET ONE (06:11)
[2016-11-23] MEDS ORDERED: METHADONE HCL 40 MG DISPERSABLE TABLET ONE (06:12)
[2016-11-23] MEDS ORDERED: INSULIN DETEMIR 100 UNITS/ML MDV SQ ONE (06:14)
[2016-11-23] MEDS: GABAPENTIN 100 MG CAPSULE (FP) PO SCH ×3 (06:18→21:31)
[2016-11-23] MEDS: METHADONE 40 MG, METHADONE 30 MG PO SCH (06:19)
[2016-11-23] MEDS: CARBIDOPA/LEVODOPA 25/250 TABLET (FP) PO SCH ×3 (06:20→21:32)
[2016-11-23] MEDS: PERPHENAZINE 4 MG TABLET PO SCH ×3 (06:21→21:33)
[2016-11-23 07:08] LABS: BASOPHIL 0.9 % (0-2.0); EOSINOPHIL 1.3 % (0-4.5); MCH 26.2 pg (25.7-33.7); MCHC 32.6 g/dl (32.0-35.9); MEAN CELL VOLUME 80.1 fl (80-96); MEAN PLT VOLUME 7.7 fl (7.5-11.1); NEUTROPHILS 63.8 % (42.8-82.8); PLATELET COUNT 305 K/MM3 (134-434); RDW 16.9 % (11.9-15.9); WHITE BLOOD COUNT 4.6 K/mm3 (4.0-10.0)
[2016-11-23 07:31] LABS: ANION GAP 7 (8-16); BILIRUBIN,TOTAL 0.4 mg/dL (0.2-1.0); CALCIUM 8.4 mg/dL (8.5-10.1); CO2 38 mmol/L (21-32); CREATININE 0.7 mg/dL (0.7-1.3); GLUCOSE,RANDOM 96 mg/dL (74-106); SGOT/AST 21 U/L (15-37); SGPT/ALT 7 U/L (12-78); TOT PROT 7.4 g/dl (6.4-8.2)
[2016-11-23 07:32] LABS: ALK PHOS 81 U/L (45-117)
[2016-11-23] MEDS ORDERED: PT OWN MED DRAWER 7, Y5N ONE ×2 (09:31→13:43)
[2016-11-23] MEDS: METOLAZONE 2.5 MG TABLET (FP) PO SCH (09:41)
[2016-11-23] MEDS: METOPROLOL SUCCINATE 25 MG TAB.SR.24H (FP) PO SCH (09:41)
[2016-11-23] MEDS: CLOPIDOGREL BISULFATE 75 MG TABLET (FP) PO SCH (09:41)
[2016-11-23] MEDS: FUROSEMIDE 40 MG TABLET (FP) PO SCH (09:41)
[2016-11-23] MEDS: INSULIN DETEMIR 100 UNITS/ML MDV SQ SCH ×2 (09:41→21:31)
[2016-11-23] MEDS: ENOXAPARIN NA (PORCINE) 40 MG/0.4 ML DISP.SYRIN SQ SCH (09:41)
[2016-11-23] MEDS: CITALOPRAM HYDROBROMIDE 20 MG TABLET (FP) PO SCH (09:41)
[2016-11-23] MEDS: COLLAGENASE CLOSTRIDIUM HIST. 30 GRAMS TUBE TP SCH (09:42)
[2016-11-23] MEDS: TAMSULOSIN HCL 0.4 MG CAP.ER.24H (FP) PO SCH (09:42)
--- NOTE | 2016-11-23 10:23 | PN ---
Progress Note (short form) - Note Progress Note: ID Vancomycin and Zosyn day 2 Rx Afebrile NAD Selected Entries 11/23/16 06:00 Temperature 98.9 F Pulse Rate 64 Respiratory 18 Rate Blood Pressure 119/60 LLE ulcer with purulent drainage Microbiology 11/20/16 22:40 Urine - Urine Clean Catch Urine Culture - Final NO GROWTH OBTAINED 11/20/16 16:35 Blood - Peripheral Venous Blood Culture - Preliminary NO GROWTH OBTAINED AFTER 48 HOURS, INCUBATION TO CONTINUE FOR 3 DAYS. 11/20/16 15:58 Blood - Peripheral Venous Blood Culture - Preliminary NO GROWTH OBTAINED AFTER 48 HOURS, INCUBATION TO CONTINUE FOR 3 DAYS. Laboratory Tests 11/22/16 11/22/16 11/23/16 06:25 10:10 06:00 WBC 4.6 RBC 3.58 L Plt Count 305 ESR > 130 H BUN Creatinine Vancomycin Trough 6.970 D 11/23/16 06:00 WBC RBC Plt Count ESR BUN 14 Creatinine 0.7 Vancomycin Trough Assessment Large abscess with osteomyelits by MRI post drainage Mixed jennifer culturer Plan Continue current therapy check Vanco level Natalia GLASER
--- NOTE | 2016-11-23 11:25 | PN ---
Progress Note (short form) - Note Progress Note: comfortable no issues denies pain. mri consistent with osteo Vital Signs Temp 98.9 F 11/23/16 06:00 Pulse 64 11/23/16 06:00 Resp 18 11/23/16 06:00 BP 119/60 11/23/16 06:00 Pulse Ox 95 11/22/16 20:21 Intake & Output 11/22/16 11/22/16 11/23/16 11:59 23:59 11:59 Intake Total 450 500 850 Output Total 606 347 6035 Balance -250 -400 -250 Intake: IVPB 100 450 Oral 350 500 400 Output: Urine 216 399 0699 Void 839 303 8368 Other: Voiding Method Urinal Urinal Urinal Bowel Movement No Active Medications Acetaminophen (Tylenol -) 650 mg PO Q4H PRN PRN Reason: FEVER OR PAIN Atorvastatin Calcium (Lipitor -) 10 mg PO HS [facility] Last Admin: 11/22/16 22:06 Dose: 10 mg Carbidopa/Levodopa (Sinemet 25/250 -) 1 each PO TID [facility] Last Admin: 11/23/16 06:20 Dose: 1 each Citalopram Hydrobromide (Celexa -) 20 mg PO DAILY [facility] Last Admin: 11/23/16 09:41 Dose: 20 mg Clopidogrel Bisulfate (Plavix -) 75 mg PO DAILY [facility] Last Admin: 11/23/16 09:41 Dose: 75 mg Collagenase (Santyl -) 1 applic TP DAILY [facility] Last Admin: 11/23/16 09:42 Dose: 1 applic Enoxaparin Sodium (Lovenox -) 40 mg SQ DAILY [facility] Last Admin: 11/23/16 09:41 Dose: 40 mg Furosemide (Lasix -) 40 mg PO DAILY [facility] Last Admin: 11/23/16 09:41 Dose: 40 mg Gabapentin (Neurontin -) 200 mg PO TID [facility] Last Admin: 11/23/16 06:18 Dose: 200 mg Vancomycin HCl 1,250 mg/ (Dextrose) 250 mls @ 166.667 mls/hr IVPB BID@1100, 2300 [facility] Last Admin: 11/22/16 22:50 Dose: 166.667 mls/hr Insulin Aspart (Novolog Vial Sliding Scale -) 1 vial SQ ACHS [facility] PRN Reason: Protocol Last Admin: 11/23/16 06:08 Dose: Not Given Insulin Detemir (Levemir Vial) 10 units SQ BID [facility] Last Admin: 11/23/16 09:41 Dose: 10 unit Methadone HCl 40 mg/ Methadone (HCl 30 mg) 70 mg PO DAILY@0600 [facility] Last Admin: 11/23/16 06:19 Dose: 70 mg Metolazone (Zaroxolyn -) 2.5 mg PO DAILY [facility] Last Admin: 11/23/16 09:41 Dose: 2.5 mg Metoprolol Succinate (Toprol Xl -) 25 mg PO DAILY [facility] Last Admin: 11/23/16 09:41 Dose: 25 mg Perphenazine (Trilafon) 8 mg PO TID [facility] Last Admin: 11/23/16 06:21 Dose: Not Given Piperacillin Sod/Tazobactam Sod (Zosyn 3.375gm Ivpb (Pre-Docked)) 3.375 gm IVPB Q6H-IV [facility] PRN Reason: Protocol Last Admin: 11/23/16 09:42 Dose: 3.375 gm Tamsulosin HCl (Flomax -) 0.4 mg PO DAILY@0830 [facility] Last Admin: 11/23/16 09:42 Dose: 0.4 mg Trazodone HCl (Desyrel -) 50 mg PO HS [facility] Last Admin: 11/22/16 22:02 Dose: 50 mg CBC, BMP 11/23/16 06:00 11/23/16 06:00 Problem List - Problems (1) Diabetic foot ulcer Code(s): E11.621 - TYPE 2 DIABETES MELLITUS WITH FOOT ULCER L97.509 - NON-PRESSURE CHRONIC ULCER OTH PRT UNSP FOOT W UNSP SEVERITY Qualifiers: (2) CAD (coronary artery disease) Code(s): I25.10 - ATHSCL HEART DISEASE OF [place] CORONARY ARTERY W/O ANG PCTRS Qualifiers: (3) Diabetes mellitus Code(s): E11.9 - TYPE 2 DIABETES MELLITUS WITHOUT COMPLICATIONS Qualifiers: Diabetes mellitus type: type 2 Diabetes mellitus complication status: with circulatory complication Diabetes mellitus complication detail: with other circulatory complications Diabetes mellitus owner/photographer insulin use: with owner/photographer use Qualified Code(s): E11.59 - Type 2 diabetes mellitus with other circulatory complications (4) Hypertension Code(s): I10 - ESSENTIAL (PRIMARY) HYPERTENSION (5) Obesity Code(s): E66.9 - OBESITY, UNSPECIFIED Physical Exam Constitutional: Yes: No Distress, Comfortable Respiratory: Yes: Diminished Gastrointestinal: Yes: Normal Bowel Sounds, Soft, Abdomen, Obese. No: Distention, Tenderness Extremities: Yes: Other (left leg dressing) Edema: Yes Edema: LLE: 1+, RLE: 1+ Neurological: Yes: Alert Assessment and Plan osteo pvd all consults/noted appreciated Continue abx continue other meds h/h stable sob - pending monitor bgm Will follow
[2016-11-23] MEDS: VANCOMYCIN 1,250 MG in DEXTROSE 5%-WATER - 250 ML IVPB SCH ×2 (13:41→22:24)
[2016-11-23] MEDS: traZODone HCL 50 MG TABLET (FP) PO SCH (21:30)
[2016-11-23] MEDS: ATORVASTATIN CA 10 MG TABLET (FP) PO SCH (21:31)
[2016-11-24] MEDS: PIPERACILLIN/TAZOB 3.375 GM/50 ML PRE-DOCKED IVPB SCH ×4 (02:08→20:59)
[2016-11-24] MEDS ORDERED: METHADONE HCL 10 MG TABLET ONE (05:38)
[2016-11-24] MEDS ORDERED: METHADONE HCL 40 MG DISPERSABLE TABLET ONE (05:39)
[2016-11-24] MEDS: METHADONE 40 MG, METHADONE 30 MG PO SCH (05:58)
[2016-11-24] MEDS: GABAPENTIN 100 MG CAPSULE (FP) PO SCH ×3 (06:00→21:42)
[2016-11-24] MEDS: CARBIDOPA/LEVODOPA 25/250 TABLET (FP) PO SCH ×3 (06:00→21:42)
[2016-11-24] MEDS: PERPHENAZINE 4 MG TABLET PO SCH ×3 (06:01→21:43)
[2016-11-24] MEDS: INSULIN SLIDING SCALE (NOVOLOG) 1 VIAL SQ SCH ×4 (06:03→21:48)
[2016-11-24] MEDS ORDERED: PT OWN MED DRAWER 7, Y5N ONE ×3 (09:22→23:16)
[2016-11-24] MEDS: METOPROLOL SUCCINATE 25 MG TAB.SR.24H (FP) PO SCH (09:48)
[2016-11-24] MEDS: ENOXAPARIN NA (PORCINE) 40 MG/0.4 ML DISP.SYRIN SQ SCH (09:48)
[2016-11-24] MEDS: INSULIN DETEMIR 100 UNITS/ML MDV SQ SCH ×2 (09:48→21:50)
[2016-11-24] MEDS: TAMSULOSIN HCL 0.4 MG CAP.ER.24H (FP) PO SCH (09:48)
[2016-11-24] MEDS: FUROSEMIDE 40 MG TABLET (FP) PO SCH (09:48)
[2016-11-24] MEDS: CITALOPRAM HYDROBROMIDE 20 MG TABLET (FP) PO SCH (09:49)
[2016-11-24] MEDS: COLLAGENASE CLOSTRIDIUM HIST. 30 GRAMS TUBE TP SCH (09:49)
[2016-11-24] MEDS: METOLAZONE 2.5 MG TABLET (FP) PO SCH (09:49)
[2016-11-24] MEDS: CLOPIDOGREL BISULFATE 75 MG TABLET (FP) PO SCH (09:49)
[2016-11-24] MEDS ORDERED: INSULIN (NOVOLOG) ASPART 100 UNITS/ML 10ML VIAL ONE ×2 (11:44→21:26)
--- NOTE | 2016-11-24 12:02 | PN ---
Progress Note (short form) - Note Progress Note: pt feels well. sitting in chair no complains denies pain. afebrile Vital Signs Temp 97.9 F 11/24/16 09:54 Pulse 55 L 11/24/16 09:54 Resp 17 11/24/16 09:54 BP 138/62 11/24/16 09:54 Pulse Ox 95 11/23/16 21:00 Intake & Output 11/23/16 11/24/16 11/24/16 23:59 11:59 23:59 Intake Total 720 200 Output Total 300 600 Balance 420 -400 Intake: IVPB 300 50 Oral 420 150 Output: Urine 300 600 Void 300 600 Other: Voiding Method Urinal Urinal # Unmeasured Voids Void 1 Bowel Movement Yes Active Medications Acetaminophen (Tylenol -) 650 mg PO Q4H PRN PRN Reason: FEVER OR PAIN Atorvastatin Calcium (Lipitor -) 10 mg PO HS [facility] Last Admin: 11/23/16 21:31 Dose: 10 mg Carbidopa/Levodopa (Sinemet 25/250 -) 1 each PO TID [facility] Last Admin: 11/24/16 06:00 Dose: 1 each Citalopram Hydrobromide (Celexa -) 20 mg PO DAILY [facility] Last Admin: 11/24/16 09:49 Dose: 20 mg Clopidogrel Bisulfate (Plavix -) 75 mg PO DAILY [facility] Last Admin: 11/24/16 09:49 Dose: 75 mg Collagenase (Santyl -) 1 applic TP DAILY [facility] Last Admin: 11/24/16 09:49 Dose: 1 applic Enoxaparin Sodium (Lovenox -) 40 mg SQ DAILY [facility] Last Admin: 11/24/16 09:48 Dose: 40 mg Furosemide (Lasix -) 40 mg PO DAILY [facility] Last Admin: 11/24/16 09:48 Dose: 40 mg Gabapentin (Neurontin -) 200 mg PO TID [facility] Last Admin: 11/24/16 06:00 Dose: 200 mg Vancomycin HCl 1,250 mg/ (Dextrose) 250 mls @ 166.667 mls/hr IVPB BID@1100, 2300 [facility] Last Admin: 11/23/16 22:24 Dose: 166.667 mls/hr Insulin Aspart (Novolog Vial Sliding Scale -) 1 vial SQ ACHS [facility] PRN Reason: Protocol Last Admin: 11/24/16 06:03 Dose: Not Given Insulin Detemir (Levemir Vial) 10 units SQ BID [facility] Last Admin: 11/24/16 09:48 Dose: 10 unit Methadone HCl 40 mg/ Methadone (HCl 30 mg) 70 mg PO DAILY@0600 [facility] Last Admin: 11/24/16 05:58 Dose: 70 mg Metolazone (Zaroxolyn -) 2.5 mg PO DAILY [facility] Last Admin: 11/24/16 09:49 Dose: 2.5 mg Metoprolol Succinate (Toprol Xl -) 25 mg PO DAILY [facility] Last Admin: 11/24/16 09:48 Dose: 25 mg Perphenazine (Trilafon) 8 mg PO TID [facility] Last Admin: 11/24/16 06:01 Dose: 8 mg Piperacillin Sod/Tazobactam Sod (Zosyn 3.375gm Ivpb (Pre-Docked)) 3.375 gm IVPB Q6H-IV [facility] PRN Reason: Protocol Last Admin: 11/24/16 09:48 Dose: 3.375 gm Potassium Chloride (K-Dur -) 20 meq PO DAILY [facility] Tamsulosin HCl (Flomax -) 0.4 mg PO DAILY@0830 [facility] Last Admin: 11/24/16 09:48 Dose: 0.4 mg Trazodone HCl (Desyrel -) 50 mg PO HS [facility] Last Admin: 11/23/16 21:30 Dose: 50 mg CBC, BMP 11/23/16 06:00 11/23/16 06:00 Problem List - Problems (1) Diabetic foot ulcer Code(s): E11.621 - TYPE 2 DIABETES MELLITUS WITH FOOT ULCER L97.509 - NON-PRESSURE CHRONIC ULCER OT PRT UNSP FOOT W UNSP SEVERITY Qualifiers: (2) CAD (coronary artery disease) Code(s): I25.10 - ATHSCL HEART DISEASE OF [place] CORONARY ARTERY W/O ANG PCTRS Qualifiers: (3) Diabetes mellitus Code(s): E11.9 - TYPE 2 DIABETES MELLITUS WITHOUT COMPLICATIONS Qualifiers: Diabetes mellitus type: type 2 Diabetes mellitus complication status: with circulatory complication Diabetes mellitus complication detail: with other circulatory complications Diabetes mellitus detention insulin use: with detention use Qualified Code(s): E11.59 - Type 2 diabetes mellitus with other circulatory complications (4) Hypertension Code(s): I10 - ESSENTIAL (PRIMARY) HYPERTENSION (5) Obesity Code(s): E66.9 - OBESITY, UNSPECIFIED Physical Exam Constitutional: Yes: No Distress, Comfortable Respiratory: Yes: Diminished at bases Gastrointestinal: Yes: Normal Bowel Sounds, Soft, Abdomen, Obese. No: Distention, Tenderness Extremities: Yes: Other (left leg dressing) Edema: Yes Edema: left foot dressing + Neurological: Yes: Alert Assessment and Plan stable Continue abx continue other meds h/h stable sob - pending monitor bgm supplement k will follow
[2016-11-24] MEDS: VANCOMYCIN 1,250 MG in DEXTROSE 5%-WATER - 250 ML IVPB SCH (12:28)
[2016-11-24] MEDS: POTASSIUM CHLORIDE TABS 10 MEQ TABLET.ER (FP) PO SCH (12:34)
[2016-11-24] MEDS: ATORVASTATIN CA 10 MG TABLET (FP) PO SCH (21:42)
[2016-11-24] MEDS: traZODone HCL 50 MG TABLET (FP) PO SCH (21:42)
[2016-11-25] MEDS: VANCOMYCIN 1,250 MG in DEXTROSE 5%-WATER - 250 ML IVPB SCH ×2 (00:33→12:17)
[2016-11-25] MEDS: PIPERACILLIN/TAZOB 3.375 GM/50 ML PRE-DOCKED IVPB SCH ×4 (03:12→22:38)
[2016-11-25] MEDS: INSULIN SLIDING SCALE (NOVOLOG) 1 VIAL SQ SCH ×4 (06:23→22:36)
[2016-11-25] MEDS ORDERED: METHADONE HCL 40 MG DISPERSABLE TABLET ONE (06:37)
[2016-11-25] MEDS ORDERED: METHADONE HCL 10 MG TABLET ONE (06:37)
[2016-11-25] MEDS: METHADONE 40 MG, METHADONE 30 MG PO SCH (06:39)
[2016-11-25] MEDS: GABAPENTIN 100 MG CAPSULE (FP) PO SCH ×3 (06:40→22:37)
[2016-11-25] MEDS: CARBIDOPA/LEVODOPA 25/250 TABLET (FP) PO SCH ×3 (06:40→22:37)
[2016-11-25] MEDS: PERPHENAZINE 4 MG TABLET PO SCH ×3 (06:40→22:37)
--- NOTE | 2016-11-25 08:42 | PN ---
Progress Note (short form) - Note Progress Note: Subjective Patient seen and examined. Comfortable. No complaints. Afebrile. Denies chest pain or SOB. Objective Last Vital Signs Temp Pulse Resp BP Pulse Ox 97.5 F L 56 L 20 118/68 95 11/25/16 09:29 11/25/16 09:29 11/25/16 09:29 11/25/16 09:29 11/24/16 21:00 CBC, BMP 11/23/16 06:00 11/23/16 06:00 Laboratory Results - last 24 hr 11/24/16 11/24/16 11/24/16 11:25 17:23 21:45 POC Glucometer 195 111 158 11/25/16 06:22 POC Glucometer 116 Physical Exam Constitutional: Yes: No Distress, Comfortable Respiratory: Yes: Diminished at bases Gastrointestinal: Yes: Normal Bowel Sounds, Soft, Abdomen, Obese. No: Distention, Tenderness Extremities: Yes: Other (left leg dressing) Edema: Yes Edema: left foot dressing + Neurological: Yes: Alert Assessment and Plan stable Continue abx continue other meds h/h stable sob - pending monitor bgm Pt is significantly bradycardic-- will decrease Toprol XL 12.[address] Ahmadi to follow. Documentation prepared by Bernadette Mack, acting as a forensic medical examiner for Saravanan Maldonado MD.
[2016-11-25] MEDS ORDERED: PT OWN MED DRAWER 7, Y5N ONE ×2 (08:45→22:32)
[2016-11-25] MEDS: ENOXAPARIN NA (PORCINE) 40 MG/0.4 ML DISP.SYRIN SQ SCH (09:55)
[2016-11-25] MEDS: TAMSULOSIN HCL 0.4 MG CAP.ER.24H (FP) PO SCH (09:56)
[2016-11-25] MEDS: CLOPIDOGREL BISULFATE 75 MG TABLET (FP) PO SCH (09:56)
[2016-11-25] MEDS: POTASSIUM CHLORIDE TABS 10 MEQ TABLET.ER (FP) PO SCH (09:56)
[2016-11-25] MEDS: CITALOPRAM HYDROBROMIDE 20 MG TABLET (FP) PO SCH (09:56)
[2016-11-25] MEDS: METOLAZONE 2.5 MG TABLET (FP) PO SCH (09:56)
[2016-11-25] MEDS: FUROSEMIDE 40 MG TABLET (FP) PO SCH (09:56)
[2016-11-25] MEDS: METOPROLOL SUCCINATE 25 MG TAB.SR.24H (FP) PO SCH (09:56)
[2016-11-25] MEDS: INSULIN DETEMIR 100 UNITS/ML MDV SQ SCH ×2 (09:57→22:37)
--- NOTE | 2016-11-25 10:55 | PN ---
Progress Note (short form) - Note Progress Note: Podiatry follow up S/ Antoinette seen and examined has no new complaints today states he feels better O/ A/A/Ox e in NAD Left foot: Wound improved since last examined, no active drainage no mal odor A/ S/P I&D doing better P/ 1) C&S from wound care done on 11/20/2016 ( All visits under micro): PRELIM: 1 ) Corynebacteium Argentoratense 2) Diphtheroid Corynebacterium 2) MRI noted & Appreciated 3) No surgical intervention at this time continue local wound care 4) When D/C'd to home as per primary team have patient follow up in wound Care on Friday 5) Dressing changed today Problem List - Problems (1) Abscess of left foot Code(s): L02.612 - CUTANEOUS ABSCESS OF LEFT FOOT (2) Osteomyelitis Code(s): M86.9 - OSTEOMYELITIS, UNSPECIFIED (3) Controlled diabetes mellitus with foot ulcer, with long-term current use of insulin Code(s): E11.621 - TYPE 2 DIABETES MELLITUS WITH FOOT ULCER L97.509 - NON-PRESSURE CHRONIC ULCER OTH PRT UNSP FOOT W UNSP SEVERITY Z79.4 - MCC (CURRENT) USE OF INSULIN Qualifiers: (4) Hypertension Code(s): I10 - ESSENTIAL (PRIMARY) HYPERTENSION (5) Methadone dependence Code(s): F11.20 - OPIOID DEPENDENCE, UNCOMPLICATED (6) Obesity Code(s): E66.9 - OBESITY, UNSPECIFIED
--- NOTE | 2016-11-25 11:16 | PN ---
Progress Note (short form) - Note Progress Note: no complaints Vital Signs Period Temp Pulse Resp BP Sys/Sullivan Pulse Ox Last 24 Hr 97.5 F-98.8 F 46-63 20-20 118-128/53-68 95-[address] Arias ankle ulcer is clean, open ulcer lower foot- no purulence CBC, BMP 11/23/16 06:00 11/23/16 06:00 wound cultures are pending a/p osteomyelitis s/p drainage of the foot abscess open chronic foot wound f/u cultures plan picc and usp iv antibiotics repeat esr and crp Problem List - Problems (1) Diabetic foot ulcer Code(s): E11.621 - TYPE 2 DIABETES MELLITUS WITH FOOT ULCER L97.509 - NON-PRESSURE CHRONIC ULCER OTH PRT UNSP FOOT W UNSP SEVERITY Qualifiers: (2) Abscess Code(s): L02.91 - CUTANEOUS ABSCESS, UNSPECIFIED (3) Osteomyelitis Code(s): M86.9 - OSTEOMYELITIS, UNSPECIFIED
[2016-11-25] MEDS: COLLAGENASE CLOSTRIDIUM HIST. 30 GRAMS TUBE TP SCH (18:18)
[2016-11-25] MEDS ORDERED: INSULIN (NOVOLOG) ASPART 100 UNITS/ML 10ML VIAL ONE (22:34)
[2016-11-25] MEDS: traZODone HCL 50 MG TABLET (FP) PO SCH (22:37)
[2016-11-25] MEDS: ATORVASTATIN CA 10 MG TABLET (FP) PO SCH (22:37)
[2016-11-26] MEDS: VANCOMYCIN 1,250 MG in DEXTROSE 5%-WATER - 250 ML IVPB SCH ×2 (00:12→11:12)
[2016-11-26] MEDS: PIPERACILLIN/TAZOB 3.375 GM/50 ML PRE-DOCKED IVPB SCH ×2 (02:41→09:11)
[2016-11-26] MEDS ORDERED: METHADONE HCL 10 MG TABLET ONE (06:09)
[2016-11-26] MEDS ORDERED: METHADONE HCL 40 MG DISPERSABLE TABLET ONE (06:10)
[2016-11-26] MEDS ORDERED: PT OWN MED DRAWER 7, Y5N ONE ×2 (06:10→16:37)
[2016-11-26] MEDS: METHADONE 40 MG, METHADONE 30 MG PO SCH (06:27)
[2016-11-26] MEDS: PERPHENAZINE 4 MG TABLET PO SCH ×2 (06:28→16:42)
[2016-11-26] MEDS: GABAPENTIN 100 MG CAPSULE (FP) PO SCH ×2 (06:28→16:41)
[2016-11-26] MEDS: INSULIN SLIDING SCALE (NOVOLOG) 1 VIAL SQ SCH ×2 (06:28→14:18)
[2016-11-26] MEDS: CARBIDOPA/LEVODOPA 25/250 TABLET (FP) PO SCH ×2 (06:28→16:41)
[2016-11-26 07:18] LABS: MCH 25.8 pg (25.7-33.7); MCHC 32.1 g/dl (32.0-35.9); MEAN CELL VOLUME 80.5 fl (80-96); MEAN PLT VOLUME 7.9 fl (7.5-11.1); NEUTROPHILS 50.2 % (42.8-82.8); PLATELET COUNT 316 K/MM3 (134-434); RDW 16.9 % (11.9-15.9); WHITE BLOOD COUNT 5.4 K/mm3 (4.0-10.0)
[2016-11-26 08:48] VITALS: BP 132/58; PULSE 56; TEMP 97.3
[2016-11-26] MEDS: TAMSULOSIN HCL 0.4 MG CAP.ER.24H (FP) PO SCH (09:08)
[2016-11-26] MEDS: FUROSEMIDE 40 MG TABLET (FP) PO SCH (09:08)
[2016-11-26] MEDS: CLOPIDOGREL BISULFATE 75 MG TABLET (FP) PO SCH (09:08)
[2016-11-26] MEDS: CITALOPRAM HYDROBROMIDE 20 MG TABLET (FP) PO SCH (09:09)
[2016-11-26] MEDS: INSULIN DETEMIR 100 UNITS/ML MDV SQ SCH (09:09)
[2016-11-26] MEDS: POTASSIUM CHLORIDE TABS 10 MEQ TABLET.ER (FP) PO SCH (09:09)
[2016-11-26] MEDS: METOLAZONE 2.5 MG TABLET (FP) PO SCH (09:09)
[2016-11-26] MEDS: ENOXAPARIN NA (PORCINE) 40 MG/0.4 ML DISP.SYRIN SQ SCH (09:09)
[2016-11-26] MEDS: METOPROLOL SUCCINATE 25 MG TAB.SR.24H (FP) PO SCH (09:10)
--- NOTE | 2016-11-26 10:06 | PN ---
Progress Note (short form) - Note Progress Note: no complaints Vital Signs Period Temp Pulse Resp BP Sys/Sullivan Pulse Ox Last 24 Hr 97.3 F-98.4 F 48-62 18-20 110-146/50-69 95-96 cor-rrr lungs clear abd soft,nt foot bandageds- seen yesterday with podiatry clean ulcers- CBC, BMP 11/26/16 06:00 11/23/16 06:00 Laboratory Tests 11/22/16 11/22/16 11/23/16 06:25 06:25 11:35 ESR > 130 H C-Reactive Protein 20.3 H D Vancomycin Trough 12.501 H D 11/26/16 06:00 ESR C-Reactive Protein 5.9 H D Vancomycin Trough wound cultures reviewed a/p osteomyelitis s/p drainage of the foot abscess open chronic foot wound vanco/unasyn for 6 weeks will order picc line Problem List - Problems (1) Diabetic foot ulcer Code(s): E11.621 - TYPE 2 DIABETES MELLITUS WITH FOOT ULCER L97.509 - NON-PRESSURE CHRONIC ULCER OTH PRT UNSP FOOT W UNSP SEVERITY Qualifiers: (2) Abscess Code(s): L02.91 - CUTANEOUS ABSCESS, UNSPECIFIED (3) Osteomyelitis Code(s): M86.9 - OSTEOMYELITIS, UNSPECIFIED
[2016-11-26] MEDS ORDERED: PICC LINE 8 ML FLUSH PROTOCOL IVPUSH PRN (10:07)
--- NOTE | 2016-11-26 10:41 | DS ---
Physical Examination Vital Signs: Vital Signs Temperature 97.3 F L 11/26/16 08:47 Pulse Rate 56 L 11/26/16 08:47 Respiratory Rate 18 11/26/16 08:47 Blood Pressure 132/58 11/26/16 08:47 O2 Sat by Pulse Oximetry (%) 95 11/26/16 08:49 Constitutional: Yes: No Distress, Calm Cardiovascular: Yes: Regular Rate and Rhythm Respiratory: Yes: CTA Bilaterally Gastrointestinal: Yes: Normal Bowel Sounds, Soft, Abdomen, Obese. No: Distention, Tenderness Edema: Yes Labs: CBC, BMP 11/26/16 06:00 11/23/16 06:00 Discharge Summary Reason For Visit: DIABETIC FOOT ULCER Current Active Problems Abscess (Acute) Diabetic foot ulcer (Acute) Osteomyelitis (Acute) Hospital Course: Initial history - History of Present Illness Initial Comments: 11/20/16 16:29 Patient is a 66 year old male with significant PMH of diabetic foot ulcer, HTN, HLD, Viral Hepatitis? & [place] (June 2016) who presents to ED from wound care for lethargy/altered mental status. Patient has a chronic left foot ulcer that has opened up in last few days. When seen in wound care, patient was noted to be more lethargic & less verbal than usual. He had a mild fever of 100.8 so they sent him down to ED. He is verbally responsive and aware of his situation, but states he is more tired than usual and feels feverish. Denies cough, dysuria , headache, SOB, chest pain or any other ROS. Left foot ulcer with reddish-yellow pus output. Chronic venous changes bilaterally but more swollen and warm at left foot up to knee. Pt seen by me on the floors Known from [facility]-- he was on Keflex , Bactrim DS for left foot ulcer, being seen by wound care weekly here. Admitted for fever and AMS Today awake and responsive Has pain in left foot Hospitalization course Admitted for non healing diabetic foot ulcer Seen by ID and Podiatry Had I & D of left foot abscess and has underlying osteomyelitis on foot MRI Stable on antibiotics Pt will be dc back to [place] on Vanco and Unasyn for 6 weeks He will need to follow up with wound clinic Condition: Good - Instructions Diet, Activity, Other Instructions: 6 weeks of Vanco and Unasyn -- check Vanco troughs prior to every 4 th dose Disposition: [facility] - Home Medications Comprehensive Discharge Medication List: Ambulatory Orders Acetaminophen W/ Codeine #3 [Tylenol # 3 -] 1 tab PO BID PRN 11/20/16 Ammonium Lactate Lotion [Lac-Hydrin 12] 1 applic TP BID 11/20/16 Aspirin [[place] Aspirin] 81 mg PO DAILY 11/20/16 Calcium Carbonate/Vitamin D3 [Calcium 500 + Vit D3 400 Tab] 1 each PO BID Carbidopa/Levodopa [Carbidopa-Levodopa 25-250 Tab] 1 each PO TID 11/20/16 Citalopram Hydrobromide [Celexa -] 20 mg PO DAILY 11/20/16 Clopidogrel Bisulfate [Plavix -] 75 mg PO DAILY 11/20/16 Flunisolide 25 mcg NS DAILY 11/20/16 Gabapentin [Neurontin -] 300 mg PO Q8H 11/20/16 Insulin Lispro Protamin/Lispro [Humalog Mix 75-25 Kwikpen] 15 unit SQ BID Ketoconazole 2% Cream [Nizoral 2% Cream -] 1 applic TP DAILY 11/20/16 Magnesium Hydrox 2400MG/30Ml [Milk of Magnesia -] 30 ml PO Q8H PRN 11/20/16 Melatonin 3 mg PO HS 11/20/16 Metformin HCl [Metformin HCl ER] 1,000 mg PO DAILY 11/20/16 Methadone HCl 70 mg PO DAILY 11/20/16 Metolazone [Zaroxolyn -] 2.5 mg PO DAILY 11/20/16 Metoprolol Tartrate [Lopressor -] 25 mg PO DAILY 11/20/16 Mv,Ca,Fe,Min/FA/Guarana/Caff [One Daily Tablet] 1 each PO DAILY 11/20/16 Perphenazine [Trilafon] 8 mg PO TID 11/20/16 Polyethylene Glycol 3350 [Miralax (For Bowel Prep) -] 17 gm PO DAILY 11/20/16 Potassium Chloride [K-Dur -] 20 meq PO DAILY 11/20/16 Sennosides [Senna] 2 tab PO HS 11/20/16 Simvastatin [Zocor -] 40 mg PO HS 11/20/16 Tamsulosin HCl [Flomax] 0.4 mg PO DAILY 11/20/16 Trazodone HCl 200 mg PO HS 11/20/16
[2016-11-26] MEDS: COLLAGENASE CLOSTRIDIUM HIST. 30 GRAMS TUBE TP SCH (14:19)
[2016-11-26] MEDS ORDERED: AMPICILLIN NA/SULBACTAM NA 1.5 GM in SODIUM CHLORIDE 100 ML IVPB SCH (15:00)
[2016-11-26] MEDS ORDERED: AMPICILLIN NA/SULBACTAM NA 3 GM in SODIUM CHLORIDE 100 ML IVPB SCH (18:00)
== END 2016-11-26 17:30 | DRG 638 ==
LOC: JER 14:41 → JERBED 17:10 → J7W 11-21 14:51
PROVIDERS: ADMIT Internal Medicine; ATTEND Internal Medicine
PROC: 02HV33Z Insertion of Infusion Device into Superior Vena Cava, Percutaneous Approach (ICD-10-PCS; principal; 2016-11-26)
PROC: B518YZA Fluoroscopy of Superior Vena Cava using Other Contrast, Guidance (ICD-10-PCS; 2016-11-26)
DX: E11.621 Type 2 diabetes mellitus with foot ulcer (principal); F20.89 Other schizophrenia; L02.612 Cutaneous abscess of left foot; B18.8 Other chronic viral hepatitis; F11.20 Opioid dependence, uncomplicated; M86.9 Osteomyelitis, unspecified; I10 Essential (primary) hypertension; E78.5 Hyperlipidemia, unspecified; K21.9 Gastro-esophageal reflux disease without esophagitis; N40.0 Benign prostatic hyperplasia without lower urinary tract symptoms; G62.89 Other specified polyneuropathies; J30.89 Other allergic rhinitis; E66.01 Morbid (severe) obesity due to excess calories; Z68.38 Body mass index [BMI] 38.0-38.9, adult; Z71.3 Dietary counseling and surveillance; M19.90 Unspecified osteoarthritis, unspecified site; Z89.422 Acquired absence of other left toe(s); Z96.653 Presence of artificial knee joint, bilateral; L97.509 Non-pressure chronic ulcer of other part of unspecified foot with unspecified severity; I25.10 Atherosclerotic heart disease of native coronary artery without angina pectoris; Z79.4 Long term (current) use of insulin
CPT/HCPCS: 36415; 36569; 71010-TC; 73630-TC-LT; 73721-RT-TC; 77001-TC; 80053; 81003; 83605; 83735; 85025; 85651; 86140; 87040; 87070; 87076; 87077; 87086; 87186; 87205; 93005; 93010; 93925-TC; 93971-TC; 99285-25; C1751; G0480

== ENCOUNTER 2017-03-27 15:39 | Emergency (ER) | payer OTHER ==
[2017-03-27 15:53] VITALS: TEMP 97.2; BMI 38.3
--- NOTE | 2017-03-27 16:40 | PDOC ---
History of Present Illness - General History Source: Patient Exam Limitations: No Limitations - History of Present Illness Initial Comments: 03/27/17 16:52 The patient is a 66 year old male with a significant past medical history of diabetic foot ulcer, hypertension, hyperlipidemia, and [place] (June 2016), presenting to the Emergency Department s/p fall just prior to arrival. The patient reports that he was at wound care, and went to change his clothing after the hyperbaric chamber when he became dizzy and fell. He denies loss of consciousness or head trauma. He admits that he fell onto his bottom. He states that he feels well and has no complaints at this time. The patient denies chest pain, palpitations, and shortness of breath. Patient denies fever, chills, and cough. Patient denies nausea, vomiting, and diarrhea. Patient denies headache, or visual changes. <Camille Oro - Last Filed: 03/27/17 18:04> <Madison Venegas - Last Filed: 03/30/17 09:25> - General Chief Complaint: Lightheaded Stated Complaint: Lightheaded Time Seen by Provider: 03/27/17 16:40 Past History <Camille Oro - Last Filed: 03/27/17 18:04> - Past Medical History Cardiac Disorders: (DC jun 2016) Diabetes: Yes GI Disorders: Yes (GERD, chronic viral hepatitis) Disorders: Yes (BPH) HTN: Yes Hypercholesterolemia: Yes Psychiatric Problems: Yes (Major depressive disorder, Schizoaffective) - Surgical History Appendectomy: Yes Orthopedic Surgery: Yes (left hallux amp -2008, left knee repair -1994) - Immunization History Immunization Up to Date: Yes - Psycho/Social/Smoking Cessation Hx Anxiety: No Suicidal Ideation: No Smoking Status: No Smoking History: Current every day smoker Have you smoked in the past 12 months: Yes Number of Cigarettes Smoked Daily: 6 Information on smoking cessation initiated: No 'Breaking Loose' booklet given: 06/23/16 Hx Alcohol Use: No Drug/Substance Use Hx: No Substance Use Type: None Hx Substance Use Treatment: Yes ([facility]) <Madison Venegas - Last Filed: 03/30/17 09:25> - Past Medical History Allergies/Adverse Reactions: Allergies Allergy/AdvReac Type Severity Reaction Status Date / Time No Known Allergies Allergy Verified 03/27/17 15:47 Home Medications: Ambulatory Orders Unobtainable [Unobtainable] 03/27/17 Review of Systems - Review of Systems Able to Perform ROS?: Yes Comments:: 03/27/17 16:52 CONSTITUTIONAL: Absent: fever, no chills, no fatigue EYES: Absent: visual changes ENT: Absent: ear pain, no sore throat CARDIOVASCULAR: Absent: chest pain, no palpitations RESPIRATORY: Absent: cough, no SOB GI: Absent: abdominal pain, no nausea, no vomiting, no constipation, no diarrhea GENITOURINARY: Absent: dysuria, no frequency, no hematuria MUSCULOSKELETAL: Absent: back pain, no arthralgia, no myalgia SKIN: Absent: rash NEURO: Absent: headache <Camille Oro - Last Filed: 03/27/17 18:04> *Physical Exam - Vital Signs Last Vital Signs Temp Pulse Resp BP Pulse Ox 97.2 F L 50 L 20 138/55 96 03/27/17 15:48 03/27/17 15:48 03/27/17 15:48 03/27/17 15:48 03/27/17 15:48 - Physical Exam Comments: 03/27/17 16:52 GENERAL: Well-appearing, well-nourished. No apparent distress. HEENT: Normocephalic, atraumatic. PERRL, EOM intact. CARDIOVASCULAR: Normal S1, S2. Regular rate and rhythm. PULMONARY: Clear to auscultation bilaterally. ABDOMEN: Soft, non-distended, non-tender. EXTREMITIES: Normal ROM in all four extremities. No gross deformities. SKIN: Bilateral nonpitting edema. [place] changes both legs, L > R consistent with chronic vascular insufficiency. Warm, dry. NEUROLOGICAL: No focal neurological deficits. <Camille Oro - Last Filed: 03/27/17 18:04> - Vital Signs Last Vital Signs Temp Pulse Resp BP Pulse Ox 97.2 F L 50 L 20 138/55 96 03/27/17 15:48 03/27/17 15:48 03/27/17 15:48 03/27/17 15:48 03/27/17 15:48 <Madison Venegas - Last Filed: 03/30/17 09:25> ED Treatment Course - RADIOLOGY Radiograph Interpretation: 03/27/17 18:04 Chest XRay As reviewed by Dr. Kt Cruz IMPRESSION: No acute pathology. <Camille Oro - Last Filed: 03/27/17 18:04> - LABORATORY CBC & Chemistry Diagram: 03/27/17 18:10 03/27/17 18:10 <Madison Venegas - Last Filed: 03/30/17 09:25> Medical Decision Making - Medical Decision Making 03/27/17 17:29 Pt presents to the ED after episode of lightheadness after completing hyperbarics treatment today. Patient states that he felt dizzy and fell backward onto his buttocks. Denies chest pain or shortness of breath. Denies LOC. Patient is mildly hypoxic--does not have a known oxygen requirement. Will check labs and EKG, reassess. Will consider admission for presyncope work up. <Madison Venegas - Last Filed: 03/30/17 09:25> *DC/Admit/Observation/Transfer - Attestations Scribe Attestion: 03/27/17 16:53 Documentation prepared by Camille Oro, acting as medical assistant dermatology for Madison Venegas MD. <Camille Oro - Last Filed: 03/27/17 18:04> - Discharge Dispostion Admit: No <Madison Venegas - Last Filed: 03/30/17 09:25> Diagnosis at time of Disposition: Fall Qualifiers: Encounter type: initial encounter Qualified Code(s): W19.XXXA - Unspecified fall, initial encounter - Discharge Dispostion Disposition: HOME Condition at time of disposition: Stable - Referrals Referrals: Harleen Carpio [Primary Care Provider] - Saravanan Maldonado MD [Staff Physician] - - Patient Instructions Printed Discharge Instructions: How to Prevent Falls
[2017-03-27 18:40] LABS: BASOPHIL 0.5 % (0-2.0); EOSINOPHIL 1.1 % (0-4.5); MCH 24.6 pg (25.7-33.7); MCHC 31.9 g/dl (32.0-35.9); MEAN CELL VOLUME 77.2 fl (80-96); MEAN PLT VOLUME 8.9 fl (7.5-11.1); NEUTROPHILS 64.7 % (42.8-82.8); PLATELET COUNT 186 K/MM3 (134-434); RDW 16.5 % (11.9-15.9); WHITE BLOOD COUNT 7.1 K/mm3 (4.0-10.0)
[2017-03-27 19:08] LABS: ALBUMIN 2.6 g/dl (3.4-5.0); ANION GAP 5 (8-16); BILIRUBIN,TOTAL 0.3 mg/dL (0.2-1.0); CALCIUM 8.9 mg/dL (8.5-10.1); CO2 38 mmol/L (21-32); CREATININE 0.8 mg/dL (0.7-1.3); GLUCOSE,RANDOM 123 mg/dL (74-106); SGOT/AST 13 U/L (15-37); SGPT/ALT 8 U/L (12-78)
[2017-03-27 19:09] LABS: ALK PHOS 64 U/L (45-117)
[2017-03-27 19:11] LABS: TROPONIN I < 0.02 ng/ml (0.00-0.05)
[2017-03-27 20:26] VITALS: BP 157/58; PULSE 55
[2017-03-27 20:27] LABS: URINE APPEARANCE CLEAR; URINE BILIRUBIN NEGATIVE (NEGATIVE); URINE BLOOD NEGATIVE (NEGATIVE); URINE COLOR LTYELLOW; URINE GLUCOSE (UA) NEGATIVE (NEGATIVE); URINE KETONE NEGATIVE (NEGATIVE); URINE LEUK ESTERASE NEGATIVE (NEGATIVE); URINE NITRITE NEGATIVE (NEGATIVE); URINE PROTEIN NEGATIVE (NEGATIVE); URINE UROBILINOGEN NEGATIVE E.U./dl (0.2-1.0)
--- NOTE | 2017-03-27 20:48 | PDOC ---
*Physical Exam - Vital Signs Last Vital Signs Temp Pulse Resp BP Pulse Ox 97.2 F L 55 L 19 157/58 95 03/27/17 15:48 03/27/17 20:24 03/27/17 20:24 03/27/17 20:24 03/27/17 20:24 ED Treatment Course - LABORATORY CBC & Chemistry Diagram: 03/27/17 18:10 03/27/17 18:10 - ADDITIONAL ORDERS Additional order review: Laboratory Results 03/27/17 03/27/17 03/27/17 20:15 18:10 18:10 Sodium 139 Potassium 3.9 Chloride 96 L Carbon Dioxide 38 H Anion Gap 5 L BUN 19 H D Creatinine 0.8 Creat Clearance w eGFR > 60 Random Glucose 123 H D Calcium 8.9 Total Bilirubin 0.3 D AST 13 L D ALT 8 L Alkaline Phosphatase 64 D Creatine Kinase 43 Troponin I < 0.02 D B-Natriuretic Peptide 457.25 H Total Protein 7.0 Albumin 2.6 L D Urine Color Ltyellow Urine Appearance Clear Urine pH 7.0 Urine Protein Negative Urine Glucose (UA) Negative Urine Ketones Negative Urine Blood Negative Urine Nitrite Negative Urine Bilirubin Negative Urine Urobilinogen Negative Ur Leukocyte Esterase Negative 03/27/17 18:10 RBC 3.81 L MCV 77.2 L MCHC 31.9 L RDW 16.5 H MPV 8.9 D Neutrophils % 64.7 D Lymphocytes % 23.9 D Monocytes % 9.8 Eosinophils % 1.1 Basophils % 0.5 Medical Decision Making - Medical Decision Making 03/27/17 20:47 all studies stable. Pt feels well. Will discharge back to [facility] *DC/Admit/Observation/Transfer Diagnosis at time of Disposition: Fall - Discharge Dispostion Disposition: HOME Condition at time of disposition: Stable Admit: No - Referrals Referrals: Harleen Carpio [Primary Care Provider] - Saravanan Maldonado MD [Staff Physician] - - Patient Instructions Printed Discharge Instructions: How to Prevent Falls - Post Discharge Activity
--- NOTE | 2017-04-04 10:40 | EKG ---
Test Reason : Blood Pressure : / mmHG Vent. Rate : 052 BPM Atrial Rate : 052 BPM P-R Int : 184 ms QRS Dur : 104 ms QT Int : 528 ms P-R-T Axes : 052 -04 043 degrees QTc Int : 491 ms SINUS BRADYCARDIA WITH PREMATURE ATRIAL COMPLEXES IN A PATTERN OF BIGEMINY INCOMPLETE RIGHT BUNDLE BRANCH BLOCK NONSPECIFIC T WAVE ABNORMALITY ABNORMAL ECG WHEN COMPARED WITH ECG OF 20-NOV-2016 17:04, QT HAS LENGTHENED Confirmed by JAKUB STEWART MD ([id number]) on 04/04/2017 10:40:25 AM Referred By: Confirmed By:JAKUB STEWART MD
== END 2017-03-27 22:26 ==
LOC: JER 15:39
DX: R42 Dizziness and giddiness (principal); W18.39XA Other fall on same level, initial encounter; Y93.89 Activity, other specified; Y92.238 Other place in hospital as the place of occurrence of the external cause; Y99.8 Other external cause status; I25.2 Old myocardial infarction; I10 Essential (primary) hypertension; E78.5 Hyperlipidemia, unspecified; N40.0 Benign prostatic hyperplasia without lower urinary tract symptoms; F25.9 Schizoaffective disorder, unspecified; F32.9 Major depressive disorder, single episode, unspecified; F17.210 Nicotine dependence, cigarettes, uncomplicated
CPT/HCPCS: 36415; 71010-TC; 80053; 81003; 82550; 83880; 84484; 85025; 93005; 93010; 99283-25; G0277

== ENCOUNTER 2018-08-06 17:06 | Inpatient (IN) | payer OTHER ==
[2018-08-06 17:21] VITALS: BMI 42.5
--- NOTE | 2018-08-06 18:03 | PDOC ---
History of Present Illness - General Chief Complaint: Irregular Heart Beat Stated Complaint: SYMPTOMATIC BRADYCARDIA Time Seen by Provider: 08/06/18 17:18 - History of Present Illness Initial Comments: 08/06/18 18:00 68 year old with history of HTN, DM, BPH, anemia, HLD and schizaffective disorder who presents from [facility] after an episode of dizziness this AM that resolved and after being found to have bradycardia in the 50s at routine cardiology visit today. The patient has baseline HR of 60-70 and was diagnosed with bradycardia in 2012. The patient notes that he does not believe that he has been drinking enough fluids. He denies chest pain, palpitations, lightheadedness, shortness of breath, fever, abdominal pain, nausea, vomiting, diarrhea or constipation. He has no other complaints at bedside. Past History - Past Medical History Allergies/Adverse Reactions: Allergies Allergy/AdvReac Type Severity Reaction Status Date / Time No Known Allergies Allergy Verified 03/24/18 15:30 Home Medications: Ambulatory Orders Acetaminophen 325 mg PO Q4HWA PRN 04/09/17 Aspirin 81 mg PO DAILY 04/09/17 Carbidopa-Levodopa 25-250 Tab 1 tab PO TID 04/09/17 Celexa - 20 mg PO DAILY 04/09/17 Flomax 0.4 mg PO HS 04/09/17 Humalog 15 units SCJ BID 04/09/17 Melatonin 3 mg PO HS 04/09/17 Metformin HCl 1,000 mg PO DAILY 04/09/17 Methadone 10 mg PO DAILY 04/09/17 Metoprolol Tartrate 25 mg PO DAILY 04/09/17 Multivitamin 1 tab PO DAILY 04/09/17 Neurontin 300 mg PO TID 04/09/17 Perphenazine 8 mg PO TID 04/09/17 Plavix 75 mg PO DAILY 04/09/17 Potassium Chloride 20 meq PO DAILY 04/09/17 Simvastatin 40 mg PO DAILY 04/09/17 Trazodone HCl 250 mg PO HS 04/09/17 Tylenol # 3 - 1 tab PO Q4HWA PRN 04/09/17 Vitamin D3 - 1 tab PO DAILY 04/09/17 Zaroxolyn - 2.5 mg PO DAILY 04/09/17 Cardiac Disorders: (PR jun 2016) COPD: No CHF: No Diabetes: Yes GI Disorders: Yes (GERD, chronic viral hepatitis) Disorders: Yes (BPH) HTN: Yes Hypercholesterolemia: Yes Psychiatric Problems: Yes (Major depressive disorder, Schizoaffective) - Surgical History Appendectomy: Yes Orthopedic Surgery: Yes (left hallux amp -2008, left knee repair -1994) - Immunization History Immunization Up to Date: Yes - Suicide/Smoking/Psychosocial Hx Smoking Status: No Smoking History: Never smoked Have you smoked in the past 12 months: Yes Number of Cigarettes Smoked Daily: 6 Information on smoking cessation initiated: No 'Breaking Loose' booklet given: 06/23/16 Hx Alcohol Use: No Drug/Substance Use Hx: No Substance Use Type: None Hx Substance Use Treatment: Yes ([facility]) *Physical Exam - Vital Signs Last Vital Signs Temp Pulse Resp BP Pulse Ox 98 F 58 L 16 136/61 100 08/06/18 17:06 08/06/18 17:06 08/06/18 17:06 08/06/18 17:06 08/06/18 17:06 ED Treatment Course - LABORATORY CBC & Chemistry Diagram: 08/06/18 18:00 08/06/18 21:13 Medical Decision Making - Medical Decision Making 08/06/18 18:31 68 year old with history of HTN, DM, BPH, anemia, HLD and schizaffective disorder who presents from [facility] after an episode of dizziness this AM that resolved and after being found to have bradycardia in the 50s at routine cardiology visit today. The patient has baseline HR of 60-70 and was diagnosed with bradycardia in 2012. The patient notes that he does not believe that he has been drinking enough fluids. He denies chest pain, palpitations, lightheadedness, shortness of breath, fever, abdominal pain, nausea, vomiting, diarrhea or constipation. He has no other complaints at bedside. DDX including but not limited to: acs/arrythmia vs electrolyte abnormality vs intracranial bleed W/U: - cbc, cmp, troponin, Mg - ua, ucx - EKG - CXR TX: - 1L NS ED Course: Patient stable. resting comfortably in bed. 08/06/18 18:41 BP: sitting 150/62, standing 150/82 Asymptomatic while standing. 08/06/18 19:48 K (3) and Mg (1.4) low will repeat. start second liter of NS Possibly symptoms of bradycardia and dizziness are due to electrolye abnormality. 08/06/18 20:10 Rhythm strip shows bigeminy 08/06/18 22:06 repeat trop unremarkable repeat K: 3 repeat M.3 40meq K PO and 10meq K IV given Patient admitted to medicine for Tele Obs *DC/Admit/Observation/Transfer Diagnosis at time of Disposition: Dizziness, Bradycardia - Discharge Dispostion Disposition: HOME Condition at time of disposition: Stable Decision to Admit order: Yes - Referrals Referrals: Saravanan Maldonado MD [Primary Care Provider] - - Patient Instructions Printed Discharge Instructions: DI for Bradycardia Additional Instructions: You were seen in the ED for complaints of slow heart rate and episode of dizziness. In the ED you were evaluated with labwork and imaging. Your results were significant for a decrease in magnesium and potassium. You were given magnesium and potassium repletion in the ED. There does not appear to be an acute need for immediate hospitalization. You are advised to follow up with your Primary Care Physician within 1 week. Return to the ED immediately if you experience worsening dizziness, headaches, loss of consciousness, chest pain, chest palpitations or shortness of breath. - Post Discharge Activity
[2018-08-06] MEDS ORDERED: SODIUM CHLORIDE 1,000 ML IV SCH ×2 (18:30→19:45)
[2018-08-06 18:43] LABS: BASO % 0.8 % (0-2.0); EOS % 0.7 % (0-4.5); HEMATOCRIT 37.9 % (35.4-49); HEMOGLOBIN 12.8 GM/dL (11.7-16.9); LYMPH % 19.9 % (8-40); MCH 28.4 pg (25.7-33.7); MCHC 33.7 g/dl (32.0-35.9); MEAN CELL VOLUME 84.4 fl (80-96); MEAN PLT VOLUME 9.5 fl (7.5-11.1); NEUT % 71.6 % (42.8-82.8); PLATELET COUNT 176 K/MM3 (134-434); RBC 4.49 M/mm3 (4.00-5.60); WHITE BLOOD COUNT 9.4 K/mm3 (4.0-10.0)
--- NOTE | 2018-08-06 19:12 | PDOC ---
Attending Attestation - HPI HPI: 08/06/18 20:46 The patient is a 68 year old male with a significant past medical history of bradycardia, HTN, DM, BPH, anemia, HLD, schizophrenia who was sent to the ED by airplane first officer. Patient had a routine airplane first officer visit earlier today and was sent to the ED for sinus bradycardia of 50s, asymptomatic. Patient states he felt lightheaded this morning but has since resolved. Denies chest pain or shortness of breath. Denies headache. Denies nausea or vomiting. Denies any other symptoms. - Physicial Exam PE: 08/06/18 20:46 Constitutional: Awake, alert, oriented. No acute distress. Head: Normocephalic. Atraumatic Eyes: PERRL. EOMI. Conjunctivae are not pale. ENT: Mucous membranes are moist and intact. Posterior pharynx without exudates or erythema. Uvula midline. Neck: Supple. Full ROM. No lymphadenopathy. Cardiovascular: + Bradycardic/ Regular rhythm. S1, S2 regular. Distal pulses are 2+ and symmetric. Pulmonary/Chest: No evidence of respiratory distress. Clear to auscultation bilaterally No wheezing, rales or rhonchi. Abdominal: Soft and non-distended. There is no tenderness. No rebound, guarding or rigidity. No organomegaly. No palpable masses. Good bowel sounds. Back: No CVA tenderness. Musculoskeletal: + 2+ edema on the bilateral feet. No cyanosis. No clubbing. Full range of motion in all extremities. Nocalf tenderness. Radial/pedal pulses are intact and 2+ bilaterally Skin: Skin is warm and dry. No petechiae. No purpura. Neurological: Alert and oriented to person, place, and time. Cranial nerves II -XII are grossly intact. Normal speech. Strength is grossly symmetric. No sensory deficits. Psychiatric: Good eye contact. Normal interaction, affect and behavior. <Inessa Green - Last Filed: 08/06/18 20:46> - Resident Resident Name: Mally Cain - ED Attending Attestation I have performed the following: I have examined & evaluated the patient, The case was reviewed & discussed with the resident, I agree w/resident's findings & plan, Exceptions are as noted - Medical Decision Making 08/06/18 19:11 I, Dr. Violette Daigle, DO, attest that this document has been prepared under my direction and personally reviewed by me in its entirety. I further attest, that it accurately reflects all work, treatment, procedures and medical decision -making performed by me. 08/06/18 21:04 a/p: 68yo male with an episode of dizziness this AM -no cardenas, no cp/sob, no palpitations -pt arrives bradycardic and in trigeminy -no head injuyr -no neuro complaints -no ear pain -orthostatics were negative -will send for head ct, cxr, ekg, rhythm strip, labs -will monitor and reassess 08/06/18 21:08 pt with low potassium and low magnesium -will replace -will repeat chem and trop after electrolyte replacement -will continue to monitor -last ekg- shows sinus sadia 08/07/18 01:13 pt with trigeminy and bigeminy - still with low potassium despite replacement. will obs overnight <Violette Daigle - Last Filed: 08/07/18 01:13> Heart Score/ECG Review - ECG Intrepretation Comment:: 08/06/18 21:10 sinus sadia at 63, bigeminy on ekg 08/06/18 21:10 tele strip shows trigeminy 08/06/18 21:10 repeat ekg: sinus sadia at 52, t wave flattening diffusely <Violette Daigle - Last Filed: 08/07/18 01:13> Attestations - Attestations 08/06/18 20:46 Documentation prepared by Inessa Green, acting as medical office technician for Violette Daigle DO <Inessa Green - Last Filed: 08/06/18 20:46>
[2018-08-06 19:13] LABS: ALBUMIN 3.3 g/dl (3.4-5.0); ALK PHOS 69 U/L (45-117); ANION GAP 11 MMOL/L (8-16); BILIRUBIN,TOTAL 0.3 mg/dL (0.2-1); BLOOD UREA NITROGEN 22 mg/dL (7-18); CALCIUM 8.1 mg/dL (8.5-10.1); CHLORIDE 96 mmol/L (98-107); CO2 35 mmol/L (21-32); CREATININE 0.9 mg/dL (0.55-1.3); GLUCOSE,RANDOM 158 mg/dL (74-106); MAGNESIUM 1.4 mg/dL (1.8-2.4); SGOT/AST 17 U/L (15-37); SGPT/ALT 18 U/L (13-61); SODIUM 142 mmol/L (136-145); TOT PROT 7.2 g/dl (6.4-8.2)
[2018-08-06] MEDS ORDERED: MAGNESIUM SULF 50% (8.12 MEQ/2 ML-1 GM VIAL) IVPB ONE ×2 (19:38→22:07)
[2018-08-06] MEDS ORDERED: POTASSIUM CHLORIDE TABS 20 MEQ TABLET.ER (FP) PO ONE ×4 (19:39→23:02)
[2018-08-06] MEDS ORDERED: MAGNESIUM SULF 50% (8.12 MEQ/2 ML-1 GM VIAL) ONE (20:13)
[2018-08-06 21:41] LABS: INR 0.97 (0.83-1.09); PROTHROMBIN TIME (PATIENT) 11.5 SEC (9.7-13.0)
[2018-08-06 21:51] LABS: ALBUMIN 3.2 g/dl (3.4-5.0); ALK PHOS 67 U/L (45-117); ANION GAP 8 MMOL/L (8-16); BILIRUBIN,TOTAL 0.3 mg/dL (0.2-1); BLOOD UREA NITROGEN 21 mg/dL (7-18); CALCIUM 8.2 mg/dL (8.5-10.1); CHLORIDE 101 mmol/L (98-107); CO2 38 mmol/L (21-32); CREATININE 0.9 mg/dL (0.55-1.3); GLUCOSE,RANDOM 147 mg/dL (74-106); SGOT/AST 16 U/L (15-37); SGPT/ALT 19 U/L (13-61); SODIUM 147 mmol/L (136-145); TOT PROT 6.9 g/dl (6.4-8.2)
[2018-08-06 22:35] LABS: MAGNESIUM 3.3 mg/dL (1.8-2.4)
[2018-08-06] MEDS ORDERED: KCL 10 MEQ IVPB 10 MEQ/100 ML INFUS.BAG IVPB SCH (22:45)
[2018-08-06] MEDS ORDERED: KCL 10 MEQ IVPB 10 MEQ/100 ML INFUS.BAG IVPB ONE (23:03)
[2018-08-06 23:29] LABS: URINE APPEARANCE CLEAR; URINE BILIRUBIN NEGATIVE (<2.0 mg/dL); URINE COLOR LTYELLOW; URINE GLUCOSE (UA) NEGATIVE (NEGATIVE); URINE KETONE NEGATIVE (NEGATIVE); URINE LEUK ESTERASE NEGATIVE (NEGATIVE); URINE NITRITE NEGATIVE (NEGATIVE); URINE PROTEIN NEGATIVE (NEGATIVE); URINE UROBILINOGEN NEGATIVE mg/dL (0.2-1.0)
[2018-08-07] MEDS ORDERED: ACETAMINOPHEN 325 MG TABLET (FP) PO PRN (01:58)
--- NOTE | 2018-08-07 02:17 | HP ---
CHIEF COMPLAINT: Bradycardia PCP: Dr. Maldonado HISTORY OF PRESENT ILLNESS: 68 year old male with a PMH significant for HTN, HLD, DM, BPH, and schizaffective disorder presented to the ED from his assembly member who measured his heart rate in the 50s at his appointment today. Patient does know recall the name of his assembly member but says he works at [address] [place] [address]. According to the medical chart, he was diagnosed with bradycardia in 2012, and his baseline HR is 60-70. He reports he's always had CEDILLO when he has to climb stairs. He denies chest pain, palpitations, orthopnea, dizziness, syncope, SOB, abdominal pain or n/v/d. He says his general health has been the same, the only significant change is that he's gained about 20lbs in the past 3 months and he' s not sure why. Upon admission to the ED, his puls was 58, all other VSS. Labs significant for K of 3.0 and Mg of 1.4. Patient was given Mg 2 G IVP, KCL 40 meq PO and 10 meq IV, 1 L of NS Repeat labs K was unchanged, and Mg 3.3. Head CT and CXR unremarkable. ECG showed ventricular bigeminy. Recent Travel: No PAST MEDICAL HISTORY: HTN HLD DM BPH anemia schizaffective disorder PAST SURGICAL HISTORY: left hallux amputation 2009 Left Knee repair Appendectomy Tonsillectomy Social History: Lives in [facility] for the past 11 years Smokin cigarettes/day, smoking for 41 years Alcohol: None Drugs: None Family History: Father: Esophageal cancer, age 75 Mother: Ulcerative colitis, age 88 Brother: Brain cancer, age 40 Allergies No Known Allergies Allergy (Verified 03/24/18 15:30) HOME MEDICATIONS: Home Medications Medication Instructions Recorded Acetaminophen 325 mg PO Q4HWA PRN 04/09/17 Aspirin 81 mg PO DAILY 04/09/17 Carbidopa-Levodopa 25-250 Tab 1 tab PO TID 04/09/17 Celexa - 20 mg PO DAILY 04/09/17 Flomax 0.4 mg PO HS 04/09/17 Humalog 15 units SCJ BID 04/09/17 Melatonin 3 mg PO HS 04/09/17 Metformin HCl 1,000 mg PO DAILY 04/09/17 Methadone 10 mg PO DAILY 04/09/17 Metoprolol Tartrate 25 mg PO DAILY 04/09/17 Multivitamin 1 tab PO DAILY 04/09/17 Neurontin 300 mg PO TID 04/09/17 Perphenazine 8 mg PO TID 04/09/17 Plavix 75 mg PO DAILY 04/09/17 Potassium Chloride 20 meq PO DAILY 04/09/17 Simvastatin 40 mg PO DAILY 04/09/17 Trazodone HCl 250 mg PO HS 04/09/17 Tylenol # 3 - 1 tab PO Q4HWA PRN 04/09/17 Vitamin D3 - 1 tab PO DAILY 04/09/17 Zaroxolyn - 2.5 mg PO DAILY 04/09/17 REVIEW OF SYSTEMS CONSTITUTIONAL: (+) Weight gain of 15 lbs in the past 2 months Absent: fever, chills, diaphoresis, generalized weakness, malaise, loss of appetite, weight change HEENT: Absent: rhinorrhea, nasal congestion, throat pain, throat swelling, difficulty swallowing, mouth swelling, ear pain, eye pain, visual changes CARDIOVASCULAR: Absent: chest pain, syncope, palpitations, irregular heart rate, lightheadedness , peripheral edema RESPIRATORY: (+) dyspnea with exertion Absent: cough, shortness of breath, , orthopnea, wheezing, stridor, hemoptysis GASTROINTESTINAL: Absent: abdominal pain, abdominal distension, nausea, vomiting, diarrhea, constipation, melena, hematochezia GENITOURINARY: (+) frequency Absent: dysuria, urgency, hesitancy, hematuria, flank pain, genital pain MUSCULOSKELETAL: (+) arthralgia Absent: myalgia, joint swelling, back pain, neck pain SKIN: (+) Dry skin to LE, dandruff to scalp Absent: itching, pallor HEMATOLOGIC/IMMUNOLOGIC: Absent: easy bleeding, easy bruising, lymphadenopathy, frequent infections ENDOCRINE: (+) unexplained weight gain Absent: unexplained weight loss, heat intolerance, cold intolerance NEUROLOGIC: Absent: headache, focal weakness or paresthesias, dizziness, unsteady gait, seizure, mental status changes, bladder or bowel incontinence PSYCHIATRIC: (+) depression Absent: anxiety, suicidal or homicidal ideation, hallucinations. PHYSICAL EXAMINATION Vital Signs - 24 hr 08/06/18 08/06/18 08/06/18 17:06 18:13 20:03 Temperature 98 F Pulse Rate 58 L Pulse Rate [ 70 Apical] Respiratory 16 16 Rate Blood Pressure 136/61 Blood Pressure 148/49 L [Right] O2 Sat by Pulse 100 95 97 Oximetry (%) 08/07/18 01:05 Temperature 98.3 F Pulse Rate Pulse Rate [ 51 L Apical] Respiratory 18 Rate Blood Pressure Blood Pressure 177/64 H [Right] O2 Sat by Pulse 98 Oximetry (%) GENERAL: Awake, sluggish and fully oriented, in no acute distress. HEAD: Dandruff, erythematous rash to scalp EYES: Pupils equal, round and reactive to light, extraocular movements intact, sclera anicteric, conjunctiva clear. No lid lag. EARS, NOSE, THROAT: nares patent, oropharynx clear without exudates. Moist mucous membranes. NECK: Normal range of motion, supple without lymphadenopathy, JVD, or masses. LUNGS: Breath sounds equal, clear to auscultation bilaterally. No wheezes, and no crackles. No accessory muscle use. HEART: Bradycardic rate, regular rhythm, normal S1 and S2 without murmur, rub or gallop. ABDOMEN: Obese, soft, nontender, not distended, normoactive bowel sounds, no guarding, no rebound, no masses. No hepatomegaly or splenomegaly. MUSCULOSKELETAL: Normal range of motion at all joints. No bony deformities or tenderness. No CVA tenderness. UPPER EXTREMITIES: 2+ pulses, warm, well-perfused. No cyanosis. No clubbing. No peripheral edema. LOWER EXTREMITIES: Hyperpigmentation and dry scaly skin to b/l LE, no calf tenderness. No peripheral edema. NEUROLOGICAL: No facial droop, slow speech, gait not observed. PSYCHIATRIC: Cooperative. Good eye contact. flat affect SKIN: Rash to scalp, dry scaly skin to LE. Laboratory Results - last 24 hr 08/06/18 08/06/18 08/06/18 18:00 18:00 21:13 WBC 9.4 RBC 4.49 Hgb 12.8 Hct 37.9 D MCV 84.4 MCH 28.4 D MCHC 33.7 RDW 15.0 Plt Count 176 MPV 9.5 Absolute Neuts (auto) 6.7 Neutrophils % 71.6 Lymphocytes % 19.9 Monocytes % 7.0 Eosinophils % 0.7 Basophils % 0.8 Nucleated RBC % 0 PT with INR 11.50 INR 0.97 PTT (Actin FS) 28.0 Sodium 142 Potassium 3.0 L Chloride 96 L Carbon Dioxide 35 H Anion Gap 11 BUN 22 H Creatinine 0.9 Creat Clearance w eGFR > 60 Random Glucose 158 H Calcium 8.1 L Magnesium 1.4 L Total Bilirubin 0.3 AST 17 ALT 18 Alkaline Phosphatase 69 Troponin I 0.02 Total Protein 7.2 Albumin 3.3 L TSH 1.87 D Urine Color Urine Appearance Urine pH Ur Specific Lawrence Urine Protein Urine Glucose (UA) Urine Ketones Urine Blood Urine Nitrite Urine Bilirubin Urine Urobilinogen Ur Leukocyte Esterase 08/06/18 08/06/18 21:13 23:16 WBC RBC Hgb Hct MCV MCH MCHC RDW Plt Count MPV Absolute Neuts (auto) Neutrophils % Lymphocytes % Monocytes % Eosinophils % Basophils % Nucleated RBC % PT with INR INR PTT (Actin FS) Sodium 147 H Potassium 3.0 L Chloride 101 Carbon Dioxide 38 H Anion Gap 8 BUN 21 H Creatinine 0.9 Creat Clearance w eGFR > 60 Random Glucose 147 H Calcium 8.2 L Magnesium 3.3 H Total Bilirubin 0.3 AST 16 ALT 19 Alkaline Phosphatase 67 Troponin I 0.02 Total Protein 6.9 Albumin 3.2 L TSH Urine Color Ltyellow Urine Appearance Clear Urine pH 7.0 Ur Specific Lawrence 1.012 Urine Protein Negative Urine Glucose (UA) Negative Urine Ketones Negative Urine Blood Negative Urine Nitrite Negative Urine Bilirubin Negative Urine Urobilinogen Negative Ur Leukocyte Esterase Negative ECG Vent rate 63 Ventricular bigeminy QTc 409 ASSESSMENT/PLAN: 68 year old male with a PMH significant for HTN, HLD, DM, BPH, anemia, and schizaffective disorder presented to the ED from his assembly member with bradycardia and hypokalemia. He was admitted to the telemetry floor for further cardiac work up and electroyle correction. Ventricular bigeminy -Possibly secondary to electrolyte abnormalities -KCl 40 MEQ x 1 @ 3:30 AM ordered -Monitor BMP -Cardiac monitoring -Cardiac consult ordered HTN -Continue Lasix 40 mg qday d/t hypokalemia -Hold Zaroxolyn 2.5 mg qday -Hold home Metoprolol Tartrate 26 qday -If BP running high add lisinopril. 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 FULL CODE Visit type - Emergency Visit Emergency Visit: Yes ED Registration Date: 08/07/18 Care time: The patient presented to the Emergency Department on the above date and was hospitalized for further evaluation of their emergent condition. - New Patient This patient is new to me today: Yes Date on this admission: 08/07/18 - Critical Care Critical Care patient: No
[2018-08-07] MEDS ORDERED: POTASSIUM CHLORIDE TABS 20 MEQ TABLET.ER (FP) PO SCH (03:30)
[2018-08-07] MEDS ORDERED: POTASSIUM CHLORIDE TABS 20 MEQ TABLET.ER (FP) PO ONE (05:05)
[2018-08-07] MEDS ORDERED: METHADONE HCL 10 MG TABLET ONE (05:35)
[2018-08-07] MEDS ORDERED: METHADONE HCL 40 MG DISPERSABLE TABLET ONE (05:35)
[2018-08-07] MEDS ORDERED: GABAPENTIN 100 MG CAPSULE (FP) ONE (05:36)
[2018-08-07] MEDS ORDERED: CARBIDOPA/LEVODOPA 25/250 TABLET (FP) ONE (05:36)
[2018-08-07] MEDS ORDERED: HEPARIN NA (PORCINE) 5,000 UNITS/ML 1ML VIAL ONE (05:36)
[2018-08-07] MEDS: HEPARIN NA (PORCINE) 5,000 UNITS/ML 1ML VIAL SQ SCH ×3 (05:43→23:21)
[2018-08-07] MEDS: PERPHENAZINE 4 MG TABLET PO SCH ×3 (05:43→23:20)
[2018-08-07] MEDS: GABAPENTIN 300 MG CAPSULE (FP) PO SCH ×3 (05:43→23:21)
[2018-08-07] MEDS: CARBIDOPA/LEVODOPA 25/250 TABLET (FP) PO SCH ×3 (05:43→23:20)
[2018-08-07] MEDS ORDERED: METHADONE 40 MG, METHADONE 10 MG PO ONE (06:00)
[2018-08-07] MEDS: INSULIN SLIDING SCALE (NOVOLOG) 1 VIAL SQ SCH ×3 (07:03→17:12)
[2018-08-07] MEDS ORDERED: ALLOPURINOL 100 MG TABLET (FP) ONE (09:17)
--- NOTE | 2018-08-07 09:32 | EKG ---
Test Reason : Blood Pressure : / mmHG Vent. Rate : 066 BPM Atrial Rate : 044 BPM P-R Int : 000 ms QRS Dur : 094 ms QT Int : 394 ms P-R-T Axes : 000 -09 -04 degrees QTc Int : 413 ms POOR DATA QUALITY, INTERPRETATION MAY BE ADVERSELY AFFECTED UNDETERMINED RHYTHM : Probable sinus bradycardia with 1st degree AV block and premature ventricular complexes SEPTAL INFARCT (CITED ON OR BEFORE 06-AUG-2018) ABNORMAL ECG Confirmed by JAKUB STEWART MD ([id number]) on 08/07/2018 9:32:20 AM Referred By: Confirmed By:JAKUB STEWART MD
[2018-08-07] MEDS: FUROSEMIDE 40 MG TABLET (FP) PO SCH (09:35)
[2018-08-07] MEDS: CLOPIDOGREL BISULFATE 75 MG TABLET (FP) PO SCH (09:35)
[2018-08-07] MEDS: ASPIRIN COATED 81 MG TABLET.EC PO SCH (09:35)
[2018-08-07] MEDS: CITALOPRAM HYDROBROMIDE 20 MG TABLET (FP) PO SCH (09:35)
--- NOTE | 2018-08-07 09:36 | EKG ---
Test Reason : Blood Pressure : / mmHG Vent. Rate : 052 BPM Atrial Rate : 048 BPM P-R Int : 000 ms QRS Dur : 104 ms QT Int : 442 ms P-R-T Axes : 000 -11 112 degrees QTc Int : 411 ms ATRIAL FIBRILLATION WITH SLOW VENTRICULAR RESPONSE INCOMPLETE RIGHT BUNDLE BRANCH BLOCK SEPTAL INFARCT , AGE UNDETERMINED ABNORMAL ECG Confirmed by JAKUB STEWART MD ([id number]) on 08/07/2018 9:35:41 AM Referred By: Confirmed By:JAKUB STEWART MD
--- NOTE | 2018-08-07 09:37 | EKG ---
Test Reason : Blood Pressure : / mmHG Vent. Rate : 063 BPM Atrial Rate : 063 BPM P-R Int : 144 ms QRS Dur : 106 ms QT Int : 400 ms P-R-T Axes : 027 -06 130 degrees QTc Int : 409 ms POOR DATA QUALITY, INTERPRETATION MAY BE ADVERSELY AFFECTED SINUS RHYTHM WITH FREQUENT PREMATURE VENTRICULAR COMPLEXES AND PREMATURE ATRIAL COMPLEXES IN A PATTERN OF BIGEMINY SEPTAL INFARCT , AGE UNDETERMINED ABNORMAL ECG WHEN COMPARED WITH ECG OF 27-MAR-2017 16:33, PREMATURE VENTRICULAR COMPLEXES ARE NOW PRESENT NONSPECIFIC T WAVE ABNORMALITY NOW EVIDENT IN INFERIOR LEADS QT HAS SHORTENED Confirmed by JAKUB STEWART MD ([id number]) on 08/07/2018 9:37:18 AM Referred By: Confirmed By:JAKUB STEWART MD
[2018-08-07] MEDS ORDERED: METOLAZONE 2.5 MG TABLET (FP) PO SCH (10:00)
[2018-08-07] MEDS ORDERED: METOPROLOL TARTRATE 25 MG TABLET (FP) PO SCH (10:00)
[2018-08-07] MEDS: POLYETHYLENE GLYCOL 3350 119 GM BTL PO SCH (10:00)
[2018-08-07] MEDS ORDERED: POTASSIUM CHLORIDE ORAL LIQUID 20 MEQ/15 ML PO ONE (12:50)
--- NOTE | 2018-08-07 12:52 | PN ---
Progress Note, Physician History of Present Illness: pt seen/ examined. Chart reviewed. awake and comfortable patient has no complaints and denies chest pain Denies shortness of breath Denies abdominal pain - Current Medication List Current Medications: Active Medications Acetaminophen (Tylenol -) 325 mg PO Q4H PRN PRN Reason: FEVER/PAIN LEVEL 1-5 Aspirin (Ecotrin -) 81 mg PO DAILY REPLACED BY [facility] Last Admin: 08/07/18 09:35 Dose: 81 mg Atorvastatin Calcium (Lipitor -) 20 mg PO HS REPLACED BY [facility] Carbidopa/Levodopa (Sinemet 25/250 -) 1 each PO TID REPLACED BY [facility] Last Admin: 08/07/18 05:43 Dose: 1 each Citalopram Hydrobromide (Celexa -) 20 mg PO DAILY REPLACED BY [facility] Last Admin: 08/07/18 09:35 Dose: 20 mg Clopidogrel Bisulfate (Plavix -) 75 mg PO DAILY REPLACED BY [facility] Last Admin: 08/07/18 09:35 Dose: 75 mg Furosemide (Lasix -) 40 mg PO DAILY REPLACED BY [facility] Last Admin: 08/07/18 09:35 Dose: 40 mg Gabapentin (Neurontin -) 300 mg PO TID REPLACED BY [facility] Last Admin: 08/07/18 05:43 Dose: 300 mg Heparin Sodium (Porcine) (Heparin -) 5,000 unit SQ TID REPLACED BY [facility] Last Admin: 08/07/18 05:43 Dose: 5,000 unit Insulin Aspart (Novolog Vial Sliding Scale -) 1 vial SQ TIDAC REPLACED BY [facility]; Protocol Last Admin: 08/07/18 07:03 Dose: Not Given Insulin Aspart (Novolog Mix 70/30 Vial) 15 units SQ BIDAC REPLACED BY [facility] Melatonin (Melatonin) 3 mg PO HS REPLACED BY [facility] Methadone HCl (Dolophine -) 50 mg PO DAILY@0600 REPLACED BY [facility] Perphenazine (Trilafon) 4 mg PO TID REPLACED BY [facility] Last Admin: 08/07/18 05:43 Dose: 4 mg Polyethylene Glycol (Miralax (For Daily Use) -) 17 gm PO DAILY REPLACED BY [facility] Potassium Chloride (K-Dur -) 20 meq PO DAILY REPLACED BY [facility] Potassium Chloride (Potassium Chloride Oral Liquid) 40 meq PO ONCE ONE Stop: 08/07/18 12:51 Senna (Senna -) 2 tab PO HS REPLACED BY [facility] Tamsulosin HCl (Flomax -) 0.4 mg PO HS REPLACED BY [facility] Trazodone HCl 50 mg/ Trazodone (HCl 200 mg) 250 mg PO HS YOLANDA - Objective Vital Signs: Vital Signs Temperature 98.3 F 08/07/18 01:05 Pulse Rate 55 L 08/07/18 05:32 Respiratory Rate 17 08/07/18 05:32 Blood Pressure 181/56 H 08/07/18 05:32 O2 Sat by Pulse Oximetry (%) 97 08/07/18 05:32 Constitutional: Yes: No Distress, Calm, Obese Eyes: Yes: Conjunctiva Clear Neck: Yes: Supple Cardiovascular: Yes: Bradycardia Respiratory: Yes: Diminished Gastrointestinal: Yes: Soft, Abdomen, Obese Edema: No Neurological: Yes: Alert Labs: CBC, BMP 08/06/18 18:00 08/06/18 21:13 INR, PTT INR 0.97 (0.83-1.09) 08/06/18 21:13 Problem List - Problems (1) Bradycardia Code(s): R00.1 - BRADYCARDIA, UNSPECIFIED (2) CAD (coronary artery disease) Code(s): I25.10 - ATHSCL HEART DISEASE OF [place] CORONARY ARTERY W/O ANG PCTRS Qualifiers: (3) Diabetes mellitus Code(s): E11.9 - TYPE 2 DIABETES MELLITUS WITHOUT COMPLICATIONS Qualifiers: Diabetes mellitus type: type 2 Diabetes mellitus exterminator termite insulin use: with exterminator termite use Diabetes mellitus complication status: with circulatory complication Diabetes mellitus complication detail: with other circulatory complications Qualified Code(s): E11.59 - Type 2 diabetes mellitus with other circulatory complications (4) Methadone dependence Code(s): F11.20 - OPIOID DEPENDENCE, UNCOMPLICATED Assessment/Plan monitor on telemetry Continue current medications Patient also on methadone Await cardiology evaluation Monitor blood pressure and the blood sugar Smoking cessation counseling provided also echocardiogram Will follow
--- NOTE | 2018-08-07 13:44 | ECHO ---
Name: DONNA MARTINEZ Exam:Adult Echocardiogram Study Date: 08/07/2018 12:06 PM Age: 68 yrs Reason For Study: Bradycardia Height: 71 in Weight: 305 lb BSA: 2.5 m2 MMode/2D Measurements & Calculations IVSd: 1.1 cm LA dimension: 3.7 cm LVIDd: 3.6 cm LVIDs: 2.6 cm LVPWd: 1.3 cm LVPWs: 1.5 cm EDV(Teich): 54.9 ml ESV(Teich): 24.8 ml LVOT diam: 2.6 cm Doppler Measurements & Calculations MV E max ze: 45.6 cm/sec Ao V2 max: 118.1 cm/sec MV A max ze: 69.4 cm/sec Ao max P.6 mmHg MV E/A: 0.66 MV dec time: 0.31 sec GRETCHEN(V,D): 4.2 cm2 LV V1 max P.3 mmHg PA V2 max: 100.4 cm/sec LV V1 max: 90.7 cm/sec PA max P.0 mmHg Med Peak E' Ze: 6.7 cm/sec Med E/e': 6.8 Lat Peak E' Ze: 8.5 cm/sec Lat E/e': 5.4 Procedure The study was technically difficult with many images being suboptimal in quality. Left Ventricle Left ventricular systolic function is grossly normal. Right Ventricle The right ventricle is grossly normal size. The right ventricular systolic function is grossly normal . Atria Normal left and right atrial size and function. Mitral Valve The mitral valve is grossly normal. There is no mitral valve stenosis. There is trace mitral regurgit ation. Tricuspid Valve The tricuspid valve is not well visualized, but is grossly normal. There is trace tricuspid regurgita tion. Aortic Valve There is mild to moderate aortic sclerosis.;. No hemodynamically significant valvular aortic stenosis . No aortic regurgitation is present. Pulmonic Valve The pulmonic valve is not well seen, but is grossly normal. There is no pulmonic valvular stenosis. T here is no pulmonic valvular regurgitation. Great Vessels The aortic root is normal size. Pericardium/Pleura There is no pericardial effusion. Interpretation Summary The study was technically difficult with many images being suboptimal in quality. Left ventricular systolic function is grossly normal. There is mild to moderate aortic sclerosis.; There is no pericardial effusion. MD Mota *Diann 08/07/2018 01:43 PM
[2018-08-07] MEDS ORDERED: POTASSIUM CHLORIDE ORAL LIQUID 20 MEQ/15 ML ONE (14:33)
[2018-08-07] MEDS ORDERED: PT OWN MED DRAWER 7, Y5N ONE (16:00)
--- NOTE | 2018-08-07 16:57 | CON.CARD ---
Consult Consult Specialty:: Cardiology Reason for Consultation:: Bradycardia - History of Present Illness Chief Complaint: Slow Heart rate History of Present Illness: This is a 68 year old male with a PMH of HTN, DM, BPH, anemia, HLD and schizaffective disorder who presents from [facility] after an episode of dizziness this AM that resolved and after being found to have bradycardia, with a HR in the 50's. EKG Sinus rhythm with PVC's, normal axis, normal intervals, and NSSTTW changes. - Past Medical History ELECTRIFICATION ADVISER: Yes: Peripheral Neuropathy Cardio/Vascular: Yes: HTN, Hyperlipdemia Gastrointestinal: Yes: GERD Hepatobiliary: Yes: Other (chronic viral heptitis, unspecified) Renal/: Yes: BPH Infectious Disease: Yes: Other (osteomyelitis) Psych: Yes: Addictions, Anxiety, Depression, Schizophrenia (schizoaffective), Other (Schizoaffective disorder) Musculoskeletal: Yes: Osteoarthritis ENT: Yes: Allergic Rhinitis, Sinusitis Endocrine: Yes: Diabetes Mellitus, Other (morbid obesity) Dermatology: Yes: Cellulitis Additional Medical History: chronic venous stasis and LLE foot wound - Past Surgical History Past Surgical History: Yes: Amputation (toe L first), Joint Replacement (knee x 2) - Alcohol/Substance Use Hx Alcohol Use: No History of Substance Use: reports: Heroin - Smoking History Smoking history: Never smoked Have you smoked in the past 12 months: Yes Aproximately how many cigarettes per day: 6 - Social History Usual Living Arrangement: [facility] History of Recent Travel: No Home Medications - Allergies Allergies/Adverse Reactions: Allergies Allergy/AdvReac Type Severity Reaction Status Date / Time No Known Allergies Allergy Verified 03/24/18 15:30 - Home Medications Home Medications: Ambulatory Orders Acetaminophen 325 mg PO Q4HWA PRN 04/09/17 Aspirin 81 mg PO DAILY 04/09/17 Carbidopa-Levodopa 25-250 Tab 1 tab PO TID 04/09/17 Celexa - 20 mg PO DAILY 04/09/17 Flomax 0.4 mg PO HS 04/09/17 Humalog 15 units SCJ BID 04/09/17 Melatonin 3 mg PO HS 04/09/17 Metformin HCl 1,000 mg PO DAILY 04/09/17 Methadone 10 mg PO DAILY 04/09/17 Metoprolol Tartrate 25 mg PO DAILY 04/09/17 Multivitamin 1 tab PO DAILY 04/09/17 Neurontin 300 mg PO TID 04/09/17 Perphenazine 8 mg PO TID 04/09/17 Plavix 75 mg PO DAILY 04/09/17 Potassium Chloride 20 meq PO DAILY 04/09/17 Simvastatin 40 mg PO DAILY 04/09/17 Trazodone HCl 250 mg PO HS 04/09/17 Tylenol # 3 - 1 tab PO Q4HWA PRN 04/09/17 Vitamin D3 - 1 tab PO DAILY 04/09/17 Zaroxolyn - 2.5 mg PO DAILY 04/09/17 Furosemide [Lasix] 1 tab PO DAILY 08/07/18 Family Disease History - Family Disease History Family Disease History: [place]: Father Review of Systems Findings/Remarks: As per HPI Vital Signs: Vital Signs Temperature 98 F 08/07/18 13:44 Pulse Rate 56 L 08/07/18 13:44 Respiratory Rate 19 08/07/18 13:44 Blood Pressure 148/73 08/07/18 13:44 O2 Sat by Pulse Oximetry (%) 96 08/07/18 12:00 Constitutional: Yes: Well Nourished, No Distress Eyes: Yes: WNL HENT: Yes: WNL Neck: Yes: WNL Respiratory: Yes: CTA Bilaterally Gastrointestinal: Yes: Normal Bowel Sounds Cardiovascular: Yes: Regular Rate and Rhythm (NL S1S2 no MRHG) Edema: No - Other Data Labs, Other Data: CBC, BMP 08/06/18 18:00 08/06/18 21:13 INR, PTT INR 0.97 (0.83-1.09) 08/06/18 21:13 Troponin, BNP 08/06/18 08/06/18 18:00 21:13 Troponin I 0.02 0.02 Troponin, BNP 08/06/18 08/06/18 18:00 21:13 Troponin I 0.02 0.02 Assessment/Plan 68 year old male with a PMH of HTN, DM, BPH, anemia, HLD and schizaffective disorder who presents from [facility] after an episode of dizziness this AM that resolved and after being found to have bradycardia, with a HR in the 50's. EKG Sinus rhythm with PVC's, normal axis, normal intervals, and NSSTTW changes. Bradycardia Monitor HR Avoid Betablocker, calcium channel blockers and DIG Ectopy on EKG May be related to hypokaylemia Replete K+ to ~ 4.0
[2018-08-07] MEDS ORDERED: SENNOSIDES 8.6MG TABLET (FP) PO SCH (22:00)
[2018-08-07] MEDS ORDERED: TRAZODONE HCL 250 MG PO SCH (22:00)
[2018-08-07] MEDS: SENNOSIDES 8.6MG TABLET (FP) PO SCH (23:20)
[2018-08-07] MEDS: MELATONIN 1 MG TABLET PO SCH (23:20)
[2018-08-07] MEDS: TRAZODONE HCL PO SCH (23:20)
[2018-08-07] MEDS: TAMSULOSIN HCL 0.4 MG CAP PO SCH (23:21)
[2018-08-07] MEDS: ATORVASTATIN CA 20 MG TABLET (FP) PO SCH (23:21)
[2018-08-08] MEDS ORDERED: METHADONE HCL 10 MG TABLET PO SCH (06:00)
[2018-08-08] MEDS: GABAPENTIN 300 MG CAPSULE (FP) PO SCH ×3 (06:05→22:46)
[2018-08-08] MEDS: METHADONE HCL 10 MG TABLET PO SCH (06:05)
[2018-08-08] MEDS: PERPHENAZINE 4 MG TABLET PO SCH ×3 (06:05→22:47)
[2018-08-08] MEDS: CARBIDOPA/LEVODOPA 25/250 TABLET (FP) PO SCH ×3 (06:05→22:46)
[2018-08-08] MEDS: HEPARIN NA (PORCINE) 5,000 UNITS/ML 1ML VIAL SQ SCH ×3 (06:05→22:45)
[2018-08-08] MEDS: INSULIN (NOVOLOG MIX 70/30) 100 UNITS/ML MDV SQ SCH ×2 (06:06→17:19)
[2018-08-08] MEDS: INSULIN SLIDING SCALE (NOVOLOG) 1 VIAL SQ SCH ×3 (06:07→17:19)
[2018-08-08 07:32] LABS: BASO % 0.5 % (0-2.0); EOS % 1.9 % (0-4.5); HEMATOCRIT 35.4 % (35.4-49); HEMOGLOBIN 11.5 GM/dL (11.7-16.9); LYMPH % 27.6 % (8-40); MCH 27.6 pg (25.7-33.7); MCHC 32.5 g/dl (32.0-35.9); MEAN CELL VOLUME 84.8 fl (80-96); MEAN PLT VOLUME 9.5 fl (7.5-11.1); MONO % 8.4 % (3.8-10.2); NEUT % 61.6 % (42.8-82.8); PLATELET COUNT 146 K/MM3 (134-434); RBC 4.18 M/mm3 (4.00-5.60); RDW 14.8 % (11.9-15.9)
[2018-08-08 07:59] LABS: ALK PHOS 62 U/L (45-117); ANION GAP 4 MMOL/L (8-16); BILIRUBIN,TOTAL 0.5 mg/dL (0.2-1); BLOOD UREA NITROGEN 16 mg/dL (7-18); CALCIUM 7.8 mg/dL (8.5-10.1); CHLORIDE 101 mmol/L (98-107); CHOLESTEROL 132 mg/dL (50-200); CO2 35 mmol/L (21-32); CREATININE 0.7 mg/dL (0.55-1.3); GLUCOSE,RANDOM 124 mg/dL (74-106); HDL CHOLESTEROL 35 mg/dL (40-60); MAGNESIUM 1.6 mg/dL (1.8-2.4); POTASSIUM 3.2 mmol/L (3.5-5.1); SGOT/AST 17 U/L (15-37); SGPT/ALT 9 U/L (13-61); SODIUM 141 mmol/L (136-145); TOT PROT 6.3 g/dl (6.4-8.2); TRIGLYCERIDES 212 mg/dL (0-150)
[2018-08-08] MEDS: ASPIRIN COATED 81 MG TABLET.EC PO SCH (09:17)
[2018-08-08] MEDS: CITALOPRAM HYDROBROMIDE 20 MG TABLET (FP) PO SCH (09:17)
[2018-08-08] MEDS: CLOPIDOGREL BISULFATE 75 MG TABLET (FP) PO SCH (09:17)
[2018-08-08] MEDS: FUROSEMIDE 40 MG TABLET (FP) PO SCH (09:17)
[2018-08-08] MEDS: POLYETHYLENE GLYCOL 3350 119 GM BTL PO SCH (09:23)
[2018-08-08] MEDS ORDERED: POTASSIUM CHLORIDE TABS 10 MEQ TABLET.ER (FP) PO SCH (10:00)
--- NOTE | 2018-08-08 11:39 | PN ---
Progress Note (short form) - Note Progress Note: pt comfortable no new issues cardiology consult noted afebrile Vital Signs Temp 98.0 F 08/08/18 06:00 Pulse 55 L 08/08/18 06:00 Resp 18 08/08/18 06:00 BP 140/58 L 08/08/18 06:00 Pulse Ox 95 08/07/18 21:00 Intake & Output 08/07/18 08/07/18 08/08/18 11:59 23:59 11:59 Intake Total 750 520 Balance 750 520 Weight 303 lb 6.4 oz Intake: Oral 750 520 Other: Voiding Method Urinal Toilet Urinal # Unmeasured Voids Void 1 Bowel Movement No Active Medications Acetaminophen (Tylenol -) 325 mg PO Q4H PRN PRN Reason: FEVER/PAIN LEVEL 1-5 Aspirin (Ecotrin -) 81 mg PO DAILY [facility] Last Admin: 08/08/18 09:17 Dose: 81 mg Atorvastatin Calcium (Lipitor -) 20 mg PO HS [facility] Last Admin: 08/07/18 23:21 Dose: 20 mg Carbidopa/Levodopa (Sinemet 25/250 -) 1 each PO TID [facility] Last Admin: 08/08/18 06:05 Dose: 1 each Citalopram Hydrobromide (Celexa -) 20 mg PO DAILY [facility] Last Admin: 08/08/18 09:17 Dose: 20 mg Clopidogrel Bisulfate (Plavix -) 75 mg PO DAILY [facility] Last Admin: 08/08/18 09:17 Dose: 75 mg Furosemide (Lasix -) 40 mg PO DAILY [facility] Last Admin: 08/08/18 09:17 Dose: 40 mg Gabapentin (Neurontin -) 300 mg PO TID [facility] Last Admin: 08/08/18 06:05 Dose: 300 mg Heparin Sodium (Porcine) (Heparin -) 5,000 unit SQ TID [facility] Last Admin: 08/08/18 06:05 Dose: 5,000 unit Insulin Aspart (Novolog Vial Sliding Scale -) 1 vial SQ TIDAC [facility]; Protocol Last Admin: 08/08/18 06:07 Dose: Not Given Insulin Aspart (Novolog Mix 70/30 Vial) 15 units SQ BIDAC [facility] Last Admin: 08/08/18 06:06 Dose: 15 units Melatonin (Melatonin) 3 mg PO HS [facility] Last Admin: 08/07/18 23:20 Dose: 3 mg Methadone HCl (Dolophine -) 10 mg PO DAILY@0600 [facility] Last Admin: 08/08/18 06:05 Dose: 10 mg Perphenazine (Trilafon) 4 mg PO TID [facility] Last Admin: 08/08/18 06:05 Dose: 4 mg Polyethylene Glycol (Miralax (For Daily Use) -) 17 gm PO DAILY [facility] Last Admin: 08/08/18 09:23 Dose: Not Given Potassium Chloride (K-Dur -) 40 meq PO DAILY [facility] Senna (Senna -) 2 tab PO HS [facility] Last Admin: 08/07/18 23:20 Dose: 2 tab Tamsulosin HCl (Flomax -) 0.4 mg PO [facility] Last Admin: 08/07/18 23:21 Dose: 0.4 mg Trazodone HCl 50 mg/ Trazodone (HCl 200 mg) 250 mg PO [facility] Last Admin: 08/07/18 23:20 Dose: 250 mg CBC, BMP 08/08/18 06:14 08/08/18 06:14 Microbiology 08/06/18 23:16 Urine Culture - Final Urine - Urine Clean Catch NO GROWTH OBTAINED Physical Exam Constitutional: Yes: No Distress, Calm, Obese Eyes: Yes: Conjunctiva Clear Neck: Yes: Supple. no jvd Cardiovascular: Yes: Bradycardia Respiratory: Yes: Diminished Gastrointestinal: Yes: Soft, Abdomen, Obese Edema: No Neurological: Yes: Alert Assessment/Plan Stable monitor on telemetry Continue current medications Patient also on methadone echocardiogram-- noted/ reviewed supplement k If no issues - anticipate d/c tomorrow to assisted. Will follow Problem List - Problems (1) Bradycardia Code(s): R00.1 - BRADYCARDIA, UNSPECIFIED (2) CAD (coronary artery disease) Code(s): I25.10 - ATHSCL HEART DISEASE OF [place] CORONARY ARTERY W/O ANG PCTRS Qualifiers: (3) Diabetes mellitus Code(s): E11.9 - TYPE 2 DIABETES MELLITUS WITHOUT COMPLICATIONS Qualifiers: Diabetes mellitus type: type 2 Diabetes mellitus fdc insulin use: with manager long term care use Diabetes mellitus complication status: with circulatory complication Diabetes mellitus complication detail: with other circulatory complications Qualified Code(s): E11.59 - Type 2 diabetes mellitus with other circulatory complications (4) Methadone dependence Code(s): F11.20 - OPIOID DEPENDENCE, UNCOMPLICATED
[2018-08-08] MEDS ORDERED: PT OWN MED DRAWER 7, Y5N ONE ×2 (13:12→22:41)
--- NOTE | 2018-08-08 13:38 | PN ---
Progress Note, Physician Chief Complaint: No complaints today History of Present Illness: 68 year old male with a PMH of HTN, DM, BPH, anemia, HLD and schizaffective disorder who presents from [facility] after an episode of dizziness this AM that resolved and after being found to have bradycardia, with a HR in the 50's. EKG Sinus rhythm with PVC's, normal axis, normal intervals, and NSSTTW changes. - Current Medication List Current Medications: Active Medications Acetaminophen (Tylenol -) 325 mg PO Q4H PRN PRN Reason: FEVER/PAIN LEVEL 1-5 Aspirin (Ecotrin -) 81 mg PO DAILY [facility] Last Admin: 08/08/18 09:17 Dose: 81 mg Atorvastatin Calcium (Lipitor -) 20 mg PO HS [facility] Last Admin: 08/07/18 23:21 Dose: 20 mg Carbidopa/Levodopa (Sinemet 25/250 -) 1 each PO TID [facility] Last Admin: 08/08/18 13:18 Dose: 1 each Citalopram Hydrobromide (Celexa -) 20 mg PO DAILY [facility] Last Admin: 08/08/18 09:17 Dose: 20 mg Clopidogrel Bisulfate (Plavix -) 75 mg PO DAILY [facility] Last Admin: 08/08/18 09:17 Dose: 75 mg Furosemide (Lasix -) 40 mg PO DAILY [facility] Last Admin: 08/08/18 09:17 Dose: 40 mg Gabapentin (Neurontin -) 300 mg PO TID [facility] Last Admin: 08/08/18 13:18 Dose: 300 mg Heparin Sodium (Porcine) (Heparin -) 5,000 unit SQ TID [facility] Last Admin: 08/08/18 13:18 Dose: 5,000 unit Insulin Aspart (Novolog Vial Sliding Scale -) 1 vial SQ TIDAC [facility]; Protocol Last Admin: 08/08/18 12:14 Dose: 4 unit Insulin Aspart (Novolog Mix 70/30 Vial) 15 units SQ BIDAC [facility] Last Admin: 08/08/18 06:06 Dose: 15 units Melatonin (Melatonin) 3 mg PO HS [facility] Last Admin: 08/07/18 23:20 Dose: 3 mg Methadone HCl (Dolophine -) 10 mg PO DAILY@0600 [facility] Last Admin: 08/08/18 06:05 Dose: 10 mg Perphenazine (Trilafon) 4 mg PO TID [facility] Last Admin: 08/08/18 13:18 Dose: 4 mg Polyethylene Glycol (Miralax (For Daily Use) -) 17 gm PO DAILY [facility] Last Admin: 08/08/18 09:23 Dose: Not Given Potassium Chloride (K-Dur -) 40 meq PO DAILY [facility] Senna (Senna -) 2 tab PO [facility] Last Admin: 08/07/18 23:20 Dose: 2 tab Tamsulosin HCl (Flomax -) 0.4 mg PO [facility] Last Admin: 08/07/18 23:21 Dose: 0.4 mg Trazodone HCl 50 mg/ Trazodone (HCl 200 mg) 250 mg PO [facility] Last Admin: 08/07/18 23:20 Dose: 250 mg - Objective Vital Signs: Vital Signs Temperature 98.1 F 08/08/18 11:33 Pulse Rate 57 L 08/08/18 11:33 Respiratory Rate 18 08/08/18 11:33 Blood Pressure 114/62 08/08/18 11:33 O2 Sat by Pulse Oximetry (%) 90 L 08/08/18 11:33 Constitutional: Yes: No Distress Neck: Yes: Supple Cardiovascular: Yes: Regular Rate and Rhythm, S1, S2. No: JVD Respiratory: Yes: CTA Bilaterally Gastrointestinal: Yes: WNL Extremities: Yes: Other (b/l chronic skin changes) Labs: CBC, BMP 08/08/18 06:14 08/08/18 06:14 INR, PTT INR 0.97 (0.83-1.09) 08/06/18 21:13 Assessment/Plan 68 year old male with a PMH of HTN, DM, BPH, anemia, HLD and schizaffective disorder who presents from [facility] after an episode of dizziness this AM that resolved and after being found to have bradycardia, with a HR in the 50's. EKG Sinus rhythm with PVC's, normal axis, normal intervals, and NSSTTW changes. Bradycardia/abnormal ekg Avoiding av kusum blockers due to bradycardia prior. Echo tds but grossly normal LVEF. Need to correct his potassium and keep over 4 Please get a 12 lead ekg. Difficult to assess on tele. Want to see rhythm and qtc. On several neuro/psych meds with frequent ectopy and nsvt. Would recommend looking through these meds and if any are arrhythmogenic would consider decreasing dose or changing. Would plan for nuclear stress test as well given degree of NSVT (K currently 3.2 )
[2018-08-08] MEDS: ATORVASTATIN CA 20 MG TABLET (FP) PO SCH (22:45)
[2018-08-08] MEDS: MELATONIN 1 MG TABLET PO SCH (22:46)
[2018-08-08] MEDS: SENNOSIDES 8.6MG TABLET (FP) PO SCH (22:46)
[2018-08-08] MEDS: TAMSULOSIN HCL 0.4 MG CAP PO SCH (22:46)
[2018-08-08] MEDS: TRAZODONE HCL PO SCH (22:47)
[2018-08-09] MEDS ORDERED: PT OWN MED DRAWER 7, Y5N ONE ×2 (06:44→14:43)
[2018-08-09] MEDS: INSULIN SLIDING SCALE (NOVOLOG) 1 VIAL SQ SCH ×3 (06:49→17:05)
[2018-08-09] MEDS: INSULIN (NOVOLOG MIX 70/30) 100 UNITS/ML MDV SQ SCH ×3 (06:50→18:51)
[2018-08-09] MEDS: CARBIDOPA/LEVODOPA 25/250 TABLET (FP) PO SCH ×3 (06:51→21:26)
[2018-08-09] MEDS: HEPARIN NA (PORCINE) 5,000 UNITS/ML 1ML VIAL SQ SCH ×3 (06:51→21:27)
[2018-08-09] MEDS: METHADONE HCL 10 MG TABLET PO SCH (06:51)
[2018-08-09] MEDS: GABAPENTIN 300 MG CAPSULE (FP) PO SCH ×3 (06:51→21:26)
[2018-08-09] MEDS: PERPHENAZINE 4 MG TABLET PO SCH ×3 (06:52→21:26)
[2018-08-09 06:54] LABS: BASO % 0.7 % (0-2.0); EOS % 1.8 % (0-4.5); HEMATOCRIT 36.4 % (35.4-49); HEMOGLOBIN 12.3 GM/dL (11.7-16.9); MCH 28.6 pg (25.7-33.7); MCHC 33.9 g/dl (32.0-35.9); MEAN CELL VOLUME 84.4 fl (80-96); MEAN PLT VOLUME 9.1 fl (7.5-11.1); MONO % 7.4 % (3.8-10.2); NEUT % 58.1 % (42.8-82.8); PLATELET COUNT 160 K/MM3 (134-434); RBC 4.31 M/mm3 (4.00-5.60); RDW 15.2 % (11.9-15.9); WHITE BLOOD COUNT 6.2 K/mm3 (4.0-10.0)
[2018-08-09 07:23] LABS: ALK PHOS 63 U/L (45-117); ANION GAP 8 MMOL/L (8-16); BILIRUBIN,TOTAL 0.4 mg/dL (0.2-1); BLOOD UREA NITROGEN 15 mg/dL (7-18); CALCIUM 7.8 mg/dL (8.5-10.1); CHLORIDE 101 mmol/L (98-107); CO2 33 mmol/L (21-32); CREATININE 0.7 mg/dL (0.55-1.3); GLUCOSE,RANDOM 111 mg/dL (74-106); POTASSIUM 3.2 mmol/L (3.5-5.1); SGOT/AST 19 U/L (15-37); SGPT/ALT 8 U/L (13-61); SODIUM 142 mmol/L (136-145); TOT PROT 6.5 g/dl (6.4-8.2)
[2018-08-09] MEDS: CLOPIDOGREL BISULFATE 75 MG TABLET (FP) PO SCH (09:21)
[2018-08-09] MEDS: ASPIRIN COATED 81 MG TABLET.EC PO SCH (09:21)
[2018-08-09] MEDS: CITALOPRAM HYDROBROMIDE 20 MG TABLET (FP) PO SCH (09:23)
[2018-08-09] MEDS: POTASSIUM CHLORIDE TABS 10 MEQ TABLET.ER (FP) PO SCH (09:23)
[2018-08-09] MEDS: FUROSEMIDE 40 MG TABLET (FP) PO SCH (09:23)
[2018-08-09] MEDS: POLYETHYLENE GLYCOL 3350 119 GM BTL PO SCH (09:25)
--- NOTE | 2018-08-09 10:36 | PN ---
Progress Note (short form) - Note Progress Note: Comfortable no new issues cardiology f/u noted Stress test planned Vital Signs Temp 98.2 F 08/09/18 09:26 Pulse 60 08/09/18 09:26 Resp 18 08/09/18 09:26 BP 133/45 L 08/09/18 09:26 Pulse Ox 98 08/08/18 21:00 Intake & Output 08/08/18 08/08/18 08/09/18 11:59 23:59 11:59 Intake Total 520 520 250 Output Total 200 Balance 520 320 250 Intake: IV 20 LFA 20 Oral 520 500 250 Output: Urine 200 Void 200 Other: Voiding Method Toilet Urinal # Unmeasured Voids Void 1 1 Bowel Movement No Active Medications Acetaminophen (Tylenol -) 325 mg PO Q4H PRN PRN Reason: FEVER/PAIN LEVEL 1-5 Aspirin (Ecotrin -) 81 mg PO DAILY [facility] Last Admin: 08/09/18 09:21 Dose: 81 mg Atorvastatin Calcium (Lipitor -) 20 mg PO HS [facility] Last Admin: 08/08/18 22:45 Dose: 20 mg Carbidopa/Levodopa (Sinemet 25/250 -) 1 each PO TID [facility] Last Admin: 08/09/18 06:51 Dose: 1 each Citalopram Hydrobromide (Celexa -) 20 mg PO DAILY [facility] Last Admin: 08/09/18 09:23 Dose: 20 mg Clopidogrel Bisulfate (Plavix -) 75 mg PO DAILY [facility] Last Admin: 08/09/18 09:21 Dose: 75 mg Furosemide (Lasix -) 40 mg PO DAILY [facility] Last Admin: 08/09/18 09:23 Dose: 40 mg Gabapentin (Neurontin -) 300 mg PO TID [facility] Last Admin: 08/09/18 06:51 Dose: 300 mg Heparin Sodium (Porcine) (Heparin -) 5,000 unit SQ TID [facility] Last Admin: 08/09/18 06:51 Dose: 5,000 unit Insulin Aspart (Novolog Vial Sliding Scale -) 1 vial SQ TIDAC [facility]; Protocol Last Admin: 08/09/18 06:49 Dose: Not Given Insulin Aspart (Novolog Mix 70/30 Vial) 15 units SQ BIDAC [facility] Last Admin: 08/09/18 06:50 Dose: 15 units Melatonin (Melatonin) 3 mg PO HS [facility] Last Admin: 08/08/18 22:46 Dose: 3 mg Methadone HCl (Dolophine -) 10 mg PO DAILY@0600 [facility] Last Admin: 08/09/18 06:51 Dose: 10 mg Perphenazine (Trilafon) 4 mg PO TID [facility] Last Admin: 08/09/18 06:52 Dose: 4 mg Polyethylene Glycol (Miralax (For Daily Use) -) 17 gm PO DAILY [facility] Last Admin: 08/09/18 09:25 Dose: Not Given Potassium Chloride (K-Dur -) 40 meq PO DAILY [facility] Last Admin: 08/09/18 09:23 Dose: 40 meq Potassium Chloride (K-Dur -) 40 meq PO ONCE ONE Stop: 08/09/18 10:33 Senna (Senna -) 2 tab PO [facility] Last Admin: 08/08/18 22:46 Dose: 2 tab Tamsulosin HCl (Flomax -) 0.4 mg PO [facility] Last Admin: 08/08/18 22:46 Dose: 0.4 mg Trazodone HCl 50 mg/ Trazodone (HCl 200 mg) 250 mg PO [facility] Last Admin: 08/08/18 22:47 Dose: 250 mg CBC, BMP 08/09/18 06:19 08/09/18 06:19 Microbiology 08/07/18 18:30 MRSA Screen - Final Nares - Mrsa Screen - Left 08/07/18 18:30 MRSA Screen - Final Nares - Mrsa Screen - Right 08/06/18 23:16 Urine Culture - Final Urine - Urine Clean Catch NO GROWTH OBTAINED Physical Exam Constitutional: Yes: No Distress, Calm, Obese Eyes: Yes: Conjunctiva Clear Neck: Yes: Supple. no jvd Cardiovascular: Yes: S1, S2 rrr Respiratory: Yes: Diminished Gastrointestinal: Yes: Soft, Abdomen, Obese Edema: No Neurological: Yes: Alert Assessment/Plan Stable monitor on telemetry Continue current medications Patient also on methadone supplement k Will consult with Psych --regarding meds/ Arrythmia Will follow Problem List - Problems (1) Bradycardia Code(s): R00.1 - BRADYCARDIA, UNSPECIFIED (2) CAD (coronary artery disease) Code(s): I25.10 - ATHSCL HEART DISEASE OF [place] CORONARY ARTERY W/O ANG PCTRS Qualifiers: (3) Diabetes mellitus Code(s): E11.9 - TYPE 2 DIABETES MELLITUS WITHOUT COMPLICATIONS Qualifiers: Diabetes mellitus type: type 2 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
[2018-08-09 10:58] LABS: MAGNESIUM 1.7 mg/dL (1.8-2.4)
[2018-08-09] MEDS ORDERED: POTASSIUM CHLORIDE TABS 10 MEQ TABLET.ER (FP) PO ONE (11:15)
--- NOTE | 2018-08-09 13:28 | PN ---
Progress Note, Physician Chief Complaint: No complaints History of Present Illness: 68 year old male with a PMH of HTN, DM, BPH, anemia, HLD and schizaffective disorder who presents from [facility] after an episode of dizziness this AM that resolved and after being found to have bradycardia, with a HR in the 50's. EKG Sinus rhythm with PVC's, normal axis, normal intervals, and NSSTTW changes. - Current Medication List Current Medications: Active Medications Acetaminophen (Tylenol -) 325 mg PO Q4H PRN PRN Reason: FEVER/PAIN LEVEL 1-5 Aspirin (Ecotrin -) 81 mg PO DAILY [facility] Last Admin: 08/09/18 09:21 Dose: 81 mg Atorvastatin Calcium (Lipitor -) 20 mg PO HS [facility] Last Admin: 08/08/18 22:45 Dose: 20 mg Carbidopa/Levodopa (Sinemet 25/250 -) 1 each PO TID [facility] Last Admin: 08/09/18 06:51 Dose: 1 each Citalopram Hydrobromide (Celexa -) 20 mg PO DAILY [facility] Last Admin: 08/09/18 09:23 Dose: 20 mg Clopidogrel Bisulfate (Plavix -) 75 mg PO DAILY [facility] Last Admin: 08/09/18 09:21 Dose: 75 mg Furosemide (Lasix -) 40 mg PO DAILY [facility] Last Admin: 08/09/18 09:23 Dose: 40 mg Gabapentin (Neurontin -) 300 mg PO TID [facility] Last Admin: 08/09/18 06:51 Dose: 300 mg Heparin Sodium (Porcine) (Heparin -) 5,000 unit SQ TID [facility] Last Admin: 08/09/18 06:51 Dose: 5,000 unit Insulin Aspart (Novolog Vial Sliding Scale -) 1 vial SQ TIDAC [facility]; Protocol Last Admin: 08/09/18 12:12 Dose: 2 unit Insulin Aspart (Novolog Mix 70/30 Vial) 15 units SQ BIDAC [facility] Last Admin: 08/09/18 06:50 Dose: 15 units Melatonin (Melatonin) 3 mg PO HS [facility] Last Admin: 08/08/18 22:46 Dose: 3 mg Methadone HCl (Dolophine -) 10 mg PO DAILY@0600 [facility] Last Admin: 08/09/18 06:51 Dose: 10 mg Perphenazine (Trilafon) 4 mg PO TID [facility] Last Admin: 08/09/18 06:52 Dose: 4 mg Polyethylene Glycol (Miralax (For Daily Use) -) 17 gm PO DAILY [facility] Last Admin: 08/09/18 09:25 Dose: Not Given Potassium Chloride (K-Dur -) 40 meq PO DAILY [facility] Last Admin: 08/09/18 09:23 Dose: 40 meq Senna (Senna -) 2 tab PO [facility] Last Admin: 08/08/18 22:46 Dose: 2 tab Tamsulosin HCl (Flomax -) 0.4 mg PO [facility] Last Admin: 08/08/18 22:46 Dose: 0.4 mg Trazodone HCl 50 mg/ Trazodone (HCl 200 mg) 250 mg PO [facility] Last Admin: 08/08/18 22:47 Dose: 250 mg - Objective Vital Signs: Vital Signs Temperature 98.2 F 08/09/18 09:26 Pulse Rate 60 08/09/18 09:26 Respiratory Rate 18 08/09/18 09:26 Blood Pressure 133/45 L 08/09/18 09:26 O2 Sat by Pulse Oximetry (%) 91 L 08/09/18 10:53 Constitutional: Yes: No Distress Neck: Yes: Supple Cardiovascular: Yes: Regular Rate and Rhythm, S1, S2. No: JVD Respiratory: Yes: CTA Bilaterally Gastrointestinal: Yes: WNL Edema: Yes (chronic skin changes) Edema: LLE: Trace, RLE: Trace Labs: CBC, BMP 08/09/18 06:19 08/09/18 06:19 INR, PTT INR 0.97 (0.83-1.09) 08/06/18 21:13 Assessment/Plan 68 year old male with a PMH of HTN, DM, BPH, anemia, HLD and schizaffective disorder who presents from [facility] after an episode of dizziness this AM that resolved and after being found to have bradycardia, with a HR in the 50's. EKG Sinus rhythm with PVC's, normal axis, normal intervals, and NSSTTW changes. Bradycardia/abnormal ekg Avoiding av kusum blockers due to bradycardia prior. Echo tds but grossly normal LVEF. Need to correct his potassium and keep over 4. It is still 3.2 Sinus rhythm on monitor but with frequent ectopy and frequent NSVT. Asymptomatic but given this will plan for ischemia evaluation with a nuclear lexiscan stress test. QTc is mildly prolonged with frequent ectopy/nsvt. Would strongly consider adjusting his psych meds. He is on three medications which prolong your QTc which are citalopram, methadone, and trazadone. Would recommend making changes to this regimen.
--- NOTE | 2018-08-09 14:04 | EKG ---
Test Reason : Blood Pressure : / mmHG Vent. Rate : 062 BPM Atrial Rate : 062 BPM P-R Int : 164 ms QRS Dur : 102 ms QT Int : 478 ms P-R-T Axes : 066 -21 089 degrees QTc Int : 485 ms SINUS RHYTHM WITH FREQUENT PREMATURE VENTRICULAR COMPLEXES PROLONGED QT ABNORMAL ECG Confirmed by MD Malathi, Destin ([id number]) on 08/09/2018 2:04:23 PM Referred By: Mark Anthony AVELAR Confirmed By:Destin Servin MD
[2018-08-09] MEDS ORDERED: INSULIN (NOVOLOG MIX 70/30) 100 UNITS/ML MDV SQ ONE (18:38)
[2018-08-09] MEDS ORDERED: INSULIN (NOVOLOG) ASPART 100 UNITS/ML 10ML VIAL ONE (18:38)
[2018-08-09] MEDS: ATORVASTATIN CA 20 MG TABLET (FP) PO SCH (21:26)
[2018-08-09] MEDS: MELATONIN 1 MG TABLET PO SCH (21:26)
[2018-08-09] MEDS: TAMSULOSIN HCL 0.4 MG CAP PO SCH (21:26)
[2018-08-09] MEDS: SENNOSIDES 8.6MG TABLET (FP) PO SCH (21:26)
[2018-08-09] MEDS: TRAZODONE HCL PO SCH (21:27)
[2018-08-10] MEDS ORDERED: PT OWN MED DRAWER 7, Y5N ONE ×2 (05:38→22:54)
[2018-08-10] MEDS: HEPARIN NA (PORCINE) 5,000 UNITS/ML 1ML VIAL SQ SCH ×3 (06:24→22:57)
[2018-08-10] MEDS: CARBIDOPA/LEVODOPA 25/250 TABLET (FP) PO SCH ×3 (06:24→22:57)
[2018-08-10] MEDS: METHADONE HCL 10 MG TABLET PO SCH (06:24)
[2018-08-10] MEDS: PERPHENAZINE 4 MG TABLET PO SCH ×3 (06:24→22:57)
[2018-08-10] MEDS: GABAPENTIN 300 MG CAPSULE (FP) PO SCH ×3 (06:24→22:57)
[2018-08-10] MEDS: INSULIN SLIDING SCALE (NOVOLOG) 1 VIAL SQ SCH ×3 (06:25→17:24)
[2018-08-10] MEDS: INSULIN (NOVOLOG MIX 70/30) 100 UNITS/ML MDV SQ SCH ×2 (06:25→17:23)
[2018-08-10] MEDS ORDERED: REGADENOSON 0.4 MG/5 ML PRE-FILLED SYRINGE IVPUSH ONE ×2 (10:15→10:26)
[2018-08-10] MEDS: POTASSIUM CHLORIDE TABS 10 MEQ TABLET.ER (FP) PO SCH (13:47)
[2018-08-10] MEDS: CLOPIDOGREL BISULFATE 75 MG TABLET (FP) PO SCH (13:47)
[2018-08-10] MEDS: FUROSEMIDE 40 MG TABLET (FP) PO SCH (13:48)
[2018-08-10] MEDS: CITALOPRAM HYDROBROMIDE 20 MG TABLET (FP) PO SCH (13:48)
[2018-08-10] MEDS: POLYETHYLENE GLYCOL 3350 119 GM BTL PO SCH (13:48)
[2018-08-10] MEDS: ASPIRIN COATED 81 MG TABLET.EC PO SCH (13:48)
--- NOTE | 2018-08-10 14:04 | PN ---
Progress Note (short form) - Note Progress Note: pt comfortable no complains cardiology f/u noted agree -- I d/manny trazadone and decrease celexa pscy consult also requested again stress today Vital Signs Temp 98.0 F 08/10/18 13:56 Pulse 77 08/10/18 13:56 Resp 18 08/10/18 13:56 BP 139/92 08/10/18 13:56 Pulse Ox 97 08/10/18 08:37 Intake & Output 08/09/18 08/10/18 08/10/18 23:59 11:59 23:59 Intake Total 1090 Balance 1090 Intake: Oral 1090 Other: Voiding Method Toilet Toilet # Unmeasured Voids Void 1 Bowel Movement No No Active Medications Acetaminophen (Tylenol -) 325 mg PO Q4H PRN PRN Reason: FEVER/PAIN LEVEL 1-5 Aspirin (Ecotrin -) 81 mg PO DAILY [facility] Last Admin: 08/10/18 13:48 Dose: 81 mg Atorvastatin Calcium (Lipitor -) 20 mg PO [facility] Last Admin: 08/09/18 21:26 Dose: 20 mg Carbidopa/Levodopa (Sinemet 25/250 -) 1 each PO TID [facility] Last Admin: 08/10/18 06:24 Dose: 1 each Citalopram Hydrobromide (Celexa -) 20 mg PO DAILY [facility] Last Admin: 08/10/18 13:48 Dose: 20 mg Clopidogrel Bisulfate (Plavix -) 75 mg PO DAILY [facility] Last Admin: 08/10/18 13:47 Dose: 75 mg Furosemide (Lasix -) 40 mg PO DAILY [facility] Last Admin: 08/10/18 13:48 Dose: 40 mg Gabapentin (Neurontin -) 300 mg PO TID [facility] Last Admin: 08/10/18 06:24 Dose: 300 mg Heparin Sodium (Porcine) (Heparin -) 5,000 unit SQ TID [facility] Last Admin: 08/10/18 06:24 Dose: 5,000 unit Insulin Aspart (Novolog Vial Sliding Scale -) 1 vial SQ TIDAC [facility]; Protocol Last Admin: 08/10/18 13:49 Dose: Not Given Insulin Aspart (Novolog Mix 70/30 Vial) 15 units SQ BIDAC [facility] Last Admin: 08/10/18 06:25 Dose: Not Given Melatonin (Melatonin) 3 mg PO HS [facility] Last Admin: 08/09/18 21:26 Dose: 3 mg Methadone HCl (Dolophine -) 10 mg PO DAILY@0600 [facility] Last Admin: 08/10/18 06:24 Dose: 10 mg Perphenazine (Trilafon) 4 mg PO TID [facility] Last Admin: 08/10/18 06:24 Dose: 4 mg Polyethylene Glycol (Miralax (For Daily Use) -) 17 gm PO DAILY [facility] Last Admin: 08/10/18 13:48 Dose: 17 gm Potassium Chloride (K-Dur -) 40 meq PO DAILY [facility] Last Admin: 08/10/18 13:47 Dose: 40 meq Senna (Senna -) 2 tab PO [facility] Last Admin: 08/09/18 21:26 Dose: 2 tab Tamsulosin HCl (Flomax -) 0.4 mg PO [facility] Last Admin: 08/09/18 21:26 Dose: 0.4 mg CBC, BMP 08/09/18 06:19 08/09/18 06:19 Physical Exam Constitutional: Yes: No Distress, Calm, Obese Eyes: Yes: Conjunctiva Clear Neck: Yes: Supple. no jvd Cardiovascular: Yes: Bradycardia Respiratory: Yes: Diminished Gastrointestinal: Yes: Soft, Abdomen, Obese Edema: No Neurological: Yes: Alert Assessment/Plan Stable monitor on telemetry Continue current medications Patient also on methadone echocardiogram-- noted/ reviewed monitor lytes Psych f/u d/c trazadone decrease celexa await stress test results will follow Problem List - Problems (1) Bradycardia Code(s): R00.1 - BRADYCARDIA, UNSPECIFIED (2) CAD (coronary artery disease) Code(s): I25.10 - ATHSCL HEART DISEASE OF [place] CORONARY ARTERY W/O ANG PCTRS Qualifiers: (3) Diabetes mellitus Code(s): E11.9 - TYPE 2 DIABETES MELLITUS WITHOUT COMPLICATIONS Qualifiers: Diabetes mellitus type: type 2 Diabetes mellitus emt intermediate insulin use: with halfway use Diabetes mellitus complication status: with circulatory complication Diabetes mellitus complication detail: with other circulatory complications Qualified Code(s): E11.59 - Type 2 diabetes mellitus with other circulatory complications (4) Methadone dependence Code(s): F11.20 - OPIOID DEPENDENCE, UNCOMPLICATED
[2018-08-10] MEDS ORDERED: CITALOPRAM HYDROBROMIDE 20 MG TABLET (FP) PO SCH (14:07)
--- NOTE | 2018-08-10 15:24 | CON.PSY ---
Psychiatry Consult Chief Complaint: 68 zachary old male, resident of [facility] with a l;sha history of SChizo Affective Disorder. patient admitted with cardiac problems. Case discussed with Chapo and agree with med changes he made to reduce the cardiac burden of high doses of Psych meds, - Previous Psychiatric Treatment Outpatient: Less than 6 mos ago Inpatient: None, One prior admission - Reason for Previous Treatment Reason for Previous Treatment: Major Depression - Current Medications Current Medications: Active Medications Acetaminophen (Tylenol -) 325 mg PO Q4H PRN PRN Reason: FEVER/PAIN LEVEL 1-5 Aspirin (Ecotrin -) 81 mg PO DAILY [facility] Last Admin: 08/10/18 13:48 Dose: 81 mg Atorvastatin Calcium (Lipitor -) 20 mg PO HS [facility] Last Admin: 08/09/18 21:26 Dose: 20 mg Carbidopa/Levodopa (Sinemet 25/250 -) 1 each PO TID [facility] Last Admin: 08/10/18 14:40 Dose: 1 each Citalopram Hydrobromide (Celexa -) 10 mg PO DAILY [facility] Clopidogrel Bisulfate (Plavix -) 75 mg PO DAILY [facility] Last Admin: 08/10/18 13:47 Dose: 75 mg Furosemide (Lasix -) 40 mg PO DAILY [facility] Last Admin: 08/10/18 13:48 Dose: 40 mg Gabapentin (Neurontin -) 300 mg PO TID [facility] Last Admin: 08/10/18 14:40 Dose: 300 mg Heparin Sodium (Porcine) (Heparin -) 5,000 unit SQ TID [facility] Last Admin: 08/10/18 14:39 Dose: 5,000 unit Insulin Aspart (Novolog Vial Sliding Scale -) 1 vial SQ TIDAC [facility]; Protocol Last Admin: 08/10/18 13:49 Dose: Not Given Insulin Aspart (Novolog Mix 70/30 Vial) 15 units SQ BIDAC [facility] Last Admin: 08/10/18 06:25 Dose: Not Given Melatonin (Melatonin) 3 mg PO [facility] Last Admin: 08/09/18 21:26 Dose: 3 mg Methadone HCl (Dolophine -) 10 mg PO DAILY@0600 [facility] Last Admin: 08/10/18 06:24 Dose: 10 mg Perphenazine (Trilafon) 4 mg PO TID [facility] Last Admin: 08/10/18 14:41 Dose: 4 mg Polyethylene Glycol (Miralax (For Daily Use) -) 17 gm PO DAILY [facility] Last Admin: 08/10/18 13:48 Dose: 17 gm Potassium Chloride (K-Dur -) 40 meq PO DAILY [facility] Last Admin: 08/10/18 13:47 Dose: 40 meq Senna (Senna -) 2 tab PO HS [facility] Last Admin: 08/09/18 21:26 Dose: 2 tab Tamsulosin HCl (Flomax -) 0.4 mg PO HS [facility] Last Admin: 08/09/18 21:26 Dose: 0.4 mg - Allergies Allergies: Allergies Allergy/AdvReac Type Severity Reaction Status Date / Time No Known Allergies Allergy Verified 03/24/18 15:30 - Current Living Status Usual Living Arrangement: Snf - Current Mental Status Evaluation Appearance: Well Groomed Attitude: Cooperative - Affect Affect: Constrictive Appropriateness: Appropriate to Content - Mood Mood: Euthymic - Speech/Language Expressive: Coherent - Psychomotor Activity Psychomotor Activity: Normal - Thought Process Thought Process: Intact - Thought Content Hallucinations: Absent Delusions: Absent - Self Perception Self Perception: No Impairment - Cognition Attention: Alert Orientation: Time Memory, Immediate Recall: Intact Memory, Short Term: 2/3 Memory, Remote with Promptin/3 - Concentration Serial Sevens Intact: No Simple Calculations Intact: No - Abstraction Proverb Interpretation: Intact Judgement: Intact - Insight Insight: Intact - Impulse Control Impulse Control: Good Control - Suicidal Ideation Suicidal Ideation: No - Homicidal Ideation Homicidal Ideation: No Problem List - Problems (1) Schizoaffective disorder, chronic condition Code(s): F25.8 - OTHER SCHIZOAFFECTIVE DISORDERS Assessment/Plan 1) Continue with currant changes to Psych meds.
--- NOTE | 2018-08-10 15:57 | PN ---
Progress Note, Physician Chief Complaint: The patient appears comfortable. He has no recurrent dizziness, chest pain, SOB or palpitation. Tele shows sinus rhythm, round 60 BPM with frequent VPCs and ventricular couplets. History of Present Illness: 68 year old male with a PMHx of HTN, DM, BPH, anemia, HLD and schizaffective disorder who presents from [facility] after an episode of dizziness this AM that resolved and after being found to have bradycardia, with a HR in the 50's. EKG Sinus rhythm with PVC's, normal axis, normal intervals, and NSSTTW changes. Echo 08/07/2018: TDS. Grossly normal LV and RV function. Regadenoson nuclear stress test 08/10/2018: A small to moderate anteroapical defect, compatible with soft tissue attenuation artifact. Preserved LV systolic function. LVEF = 54%. - Current Medication List Current Medications: Active Medications Acetaminophen (Tylenol -) 325 mg PO Q4H PRN PRN Reason: FEVER/PAIN LEVEL 1-5 Aspirin (Ecotrin -) 81 mg PO DAILY [facility] Last Admin: 08/10/18 13:48 Dose: 81 mg Atorvastatin Calcium (Lipitor -) 20 mg PO HS [facility] Last Admin: 08/09/18 21:26 Dose: 20 mg Carbidopa/Levodopa (Sinemet 25/250 -) 1 each PO TID [facility] Last Admin: 08/10/18 14:40 Dose: 1 each Citalopram Hydrobromide (Celexa -) 10 mg PO DAILY [facility] Clopidogrel Bisulfate (Plavix -) 75 mg PO DAILY [facility] Last Admin: 08/10/18 13:47 Dose: 75 mg Furosemide (Lasix -) 40 mg PO DAILY [facility] Last Admin: 08/10/18 13:48 Dose: 40 mg Gabapentin (Neurontin -) 300 mg PO TID [facility] Last Admin: 08/10/18 14:40 Dose: 300 mg Heparin Sodium (Porcine) (Heparin -) 5,000 unit SQ TID [facility] Last Admin: 08/10/18 14:39 Dose: 5,000 unit Insulin Aspart (Novolog Vial Sliding Scale -) 1 vial SQ TIDAC [facility]; Protocol Last Admin: 08/10/18 13:49 Dose: Not Given Insulin Aspart (Novolog Mix 70/30 Vial) 15 units SQ BIDAC [facility] Last Admin: 08/10/18 06:25 Dose: Not Given Melatonin (Melatonin) 3 mg PO [facility] Last Admin: 08/09/18 21:26 Dose: 3 mg Methadone HCl (Dolophine -) 10 mg PO DAILY@0600 [facility] Last Admin: 08/10/18 06:24 Dose: 10 mg Perphenazine (Trilafon) 4 mg PO TID [facility] Last Admin: 08/10/18 14:41 Dose: 4 mg Polyethylene Glycol (Miralax (For Daily Use) -) 17 gm PO DAILY [facility] Last Admin: 08/10/18 13:48 Dose: 17 gm Potassium Chloride (K-Dur -) 40 meq PO DAILY [facility] Last Admin: 08/10/18 13:47 Dose: 40 meq Senna (Senna -) 2 tab PO HS [facility] Last Admin: 08/09/18 21:26 Dose: 2 tab Tamsulosin HCl (Flomax -) 0.4 mg PO [facility] Last Admin: 08/09/18 21:26 Dose: 0.4 mg - Objective Vital Signs: Vital Signs Temperature 98.0 F 08/10/18 13:56 Pulse Rate 77 08/10/18 13:56 Respiratory Rate 18 08/10/18 13:56 Blood Pressure 139/92 08/10/18 13:56 O2 Sat by Pulse Oximetry (%) 97 08/10/18 08:37 General: Well developed. Obese. No acute distress. Head: Normocephalic. Atraumatic, Eyes: PERRLA, EOMI. Sclerae anicteric. Conjunctivae clear. Neck: Supple. No JVD. No bruits. Heart: Normal S1, S2: Regularly irregular rhythm and rate. No murmur. No gallop or rub. Lungs: Symmetrical air entry. Clear to auscultation. No crackles. No wheezing or rhonchi. Abdomen: Soft. Bowel sound positive. Non tender. No masses. Extremities: No edema. No clubbing or cyanosis. PD 2+, equal bilaterally. Labs: CBC, BMP 08/09/18 06:19 08/09/18 06:19 INR, PTT INR 0.97 (0.83-1.09) 08/06/18 21:13 Assessment/Plan 68 year old male with a PMHx of HTN, DM, BPH, anemia, HLD and schizaffective disorder who presents from [facility] after an episode of dizziness this AM that resolved and after being found to have bradycardia, with a HR in the 50's. EKG Sinus rhythm with PVC's, normal axis, normal intervals, and NSSTTW changes. Echo 08/07/2018: TDS. Grossly normal LV and RV function. Regadenoson nuclear stress test 08/10/2018: A small to moderate anteroapical defect, compatible with soft tissue attenuation artifact. Preserved LV systolic function. LVEF = 54%. Bradycardia and frequent VPCs/abnormal ECG. Avoiding AV kusum blockers due to bradycardia prior. Echo tds but grossly normal LVEF. No evidence of stress induced ischemia from the nuclear stress test. Optimize electrolytes, correct hypokalemia. QTc is mildly prolonged with frequent ectopy/nsvt. Would strongly consider adjusting his psych meds. He is on three medications which prolong your QTc which are citalopram, methadone, and trazadone. Would recommend making changes to this regimen. No further cardiac test recommended at this time. Out-pt cardiac follow up if possible. Please call us for reconsult as needed.
[2018-08-10] MEDS ORDERED: INSULIN (NOVOLOG) ASPART 100 UNITS/ML 10ML VIAL ONE (17:14)
[2018-08-10] MEDS: TAMSULOSIN HCL 0.4 MG CAP PO SCH (22:57)
[2018-08-10] MEDS: SENNOSIDES 8.6MG TABLET (FP) PO SCH (22:57)
[2018-08-10] MEDS: MELATONIN 1 MG TABLET PO SCH (22:58)
[2018-08-10] MEDS: ATORVASTATIN CA 20 MG TABLET (FP) PO SCH (22:59)
[2018-08-11] MEDS ORDERED: PT OWN MED DRAWER 7, Y5N ONE ×5 (01:22→13:17)
[2018-08-11] MEDS: INSULIN (NOVOLOG MIX 70/30) 100 UNITS/ML MDV SQ SCH (06:35)
[2018-08-11] MEDS: HEPARIN NA (PORCINE) 5,000 UNITS/ML 1ML VIAL SQ SCH ×2 (06:35→13:23)
[2018-08-11] MEDS: CARBIDOPA/LEVODOPA 25/250 TABLET (FP) PO SCH ×2 (06:36→13:23)
[2018-08-11] MEDS: METHADONE HCL 10 MG TABLET PO SCH (06:36)
[2018-08-11] MEDS: PERPHENAZINE 4 MG TABLET PO SCH ×2 (06:36→13:23)
[2018-08-11] MEDS: INSULIN SLIDING SCALE (NOVOLOG) 1 VIAL SQ SCH ×2 (06:36→11:41)
[2018-08-11] MEDS: GABAPENTIN 300 MG CAPSULE (FP) PO SCH ×2 (06:36→13:23)
[2018-08-11] MEDS ORDERED: INSULIN (NOVOLOG) ASPART 100 UNITS/ML 10ML VIAL ONE (06:40)
[2018-08-11 07:11] LABS: ANION GAP 6 MMOL/L (8-16); BLOOD UREA NITROGEN 16 mg/dL (7-18); CALCIUM 8.5 mg/dL (8.5-10.1); CHLORIDE 103 mmol/L (98-107); CO2 31 mmol/L (21-32); CREATININE 0.8 mg/dL (0.55-1.3); GLUCOSE,RANDOM 99 mg/dL (74-106); POTASSIUM 3.8 mmol/L (3.5-5.1); SODIUM 140 mmol/L (136-145)
[2018-08-11] MEDS: CLOPIDOGREL BISULFATE 75 MG TABLET (FP) PO SCH (09:21)
[2018-08-11] MEDS: FUROSEMIDE 40 MG TABLET (FP) PO SCH (09:21)
[2018-08-11] MEDS: ASPIRIN COATED 81 MG TABLET.EC PO SCH (09:21)
[2018-08-11] MEDS: POTASSIUM CHLORIDE TABS 10 MEQ TABLET.ER (FP) PO SCH (09:21)
[2018-08-11] MEDS: POLYETHYLENE GLYCOL 3350 119 GM BTL PO SCH (09:22)
--- NOTE | 2018-08-11 12:46 | DS ---
Physical Examination Vital Signs: Vital Signs Temperature 97.9 F 08/11/18 11:18 Pulse Rate 62 08/11/18 11:18 Respiratory Rate 20 08/11/18 11:18 Blood Pressure 136/72 08/11/18 11:18 O2 Sat by Pulse Oximetry (%) 91 L 08/11/18 11:18 Findings/Remarks: feels well. no complains stress test -ve mood stable Constitutional: Yes: No Distress Eyes: Yes: Conjunctiva Clear Neck: Yes: Supple Cardiovascular: Yes: Regular Rate and Rhythm Respiratory: Yes: CTA Bilaterally Gastrointestinal: Yes: Soft Edema: No Neurological: Yes: Alert Psychiatric: Yes: Alert Labs: CBC, BMP 08/09/18 06:19 08/11/18 06:00 Discharge Summary Reason For Visit: BRADYCARDIA,HYPOKALEMIA Current Active Problems Bradycardia (Acute) Dizziness (Acute) Schizoaffective disorder, chronic condition (Acute) Hospital Course: 68 year old male with a PMH significant for HTN, HLD, DM, BPH, and schizaffective disorder 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 In the ED you were evaluated with labwork and imaging. Your results were significant for a decrease in magnesium and potassium. You were given magnesium and potassium repletion in the ED. There does not appear to be an acute need for immediate hospitalization. You are advised to follow up with your Primary Care Physician within 1 week. Return to the ED immediately if you experience worsening dizziness, headaches, loss of consciousness, chest pain, chest palpitations or shortness of breath. Referrals: Saravanan Maldonado MD [Primary Care Provider] - Disposition: [facility] F[facility] - Home Medications Comprehensive Discharge Medication List: Ambulatory Orders Acetaminophen 325 mg PO Q4HWA PRN 04/09/17 Aspirin 81 mg PO DAILY 04/09/17 Carbidopa-Levodopa 25-250 Tab 1 tab PO TID 04/09/17 Flomax 0.4 mg PO HS 04/09/17 Humalog 15 units SCJ BID 04/09/17 Melatonin 3 mg PO HS 04/09/17 Metformin HCl 1,000 mg PO DAILY 04/09/17 Methadone 10 mg PO DAILY 04/09/17 Metoprolol Tartrate 25 mg PO DAILY 04/09/17 Multivitamin 1 tab PO DAILY 04/09/17 Neurontin 300 mg PO TID 04/09/17 Plavix 75 mg PO DAILY 04/09/17 Potassium Chloride 20 meq PO DAILY 04/09/17 Simvastatin 40 mg PO DAILY 04/09/17 Tylenol # 3 - 1 tab PO Q4HWA PRN 04/09/17 Vitamin D3 - 1 tab PO DAILY 04/09/17 Zaroxolyn - 2.5 mg PO DAILY 04/09/17 Furosemide [Lasix] 1 tab PO DAILY 08/07/18 Citalopram Hydrobromide [Celexa -] 10 mg PO DAILY tablet 08/11/18 Heparin - 5,000 unit SQ TID vial 08/11/18 Insulin (Novolog 70/30) [Novolog Mix 70/30 Vial -] 15 units SQ BIDAC units Insulin Sliding Scale [Novolog Vial Sliding Scale -] 1 vial SQ TIDAC units Perphenazine [Trilafon -] 4 mg PO TID tablet 08/11/18 Polyethylene Glycol 3350 [Miralax 119 gm Btl -] 17 gm PO DAILY bottle 08/11/18 Sennosides [Senna -] 2 tab PO HS tablet 08/11/18
[2018-08-11 15:20] VITALS: BP 130/72; PULSE 65; TEMP 98.6
== END 2018-08-11 17:10 | DRG 641 ==
LOC: JER 17:06 → JERBED 08-07 00:15 → J4S 08-07 15:24 → OBSVTOIN 08-09 14:05
PROVIDERS: ADMIT Internal Medicine; ATTEND Internal Medicine
DX: E87.6 Hypokalemia (principal); I47.1 Supraventricular tachycardia; B18.9 Chronic viral hepatitis, unspecified; Z68.41 Body mass index [BMI] 40.0-44.9, adult; F11.20 Opioid dependence, uncomplicated; F25.9 Schizoaffective disorder, unspecified; I10 Essential (primary) hypertension; R00.8 Other abnormalities of heart beat; T43.505A Adverse effect of unspecified antipsychotics and neuroleptics, initial encounter; E11.9 Type 2 diabetes mellitus without complications; N40.0 Benign prostatic hyperplasia without lower urinary tract symptoms; E78.5 Hyperlipidemia, unspecified; D64.9 Anemia, unspecified; Z79.84 Long term (current) use of oral hypoglycemic drugs; I25.2 Old myocardial infarction; R00.1 Bradycardia, unspecified; Z89.412 Acquired absence of left great toe; F17.210 Nicotine dependence, cigarettes, uncomplicated; K59.00 Constipation, unspecified; G47.00 Insomnia, unspecified; E66.9 Obesity, unspecified; Z96.659 Presence of unspecified artificial knee joint; I45.81 Long QT syndrome
CPT/HCPCS: 36415; 70450-TC; 71045-TC-FY; 78452-TC; 80048; 80053; 80061; 81003; 82962; 83721; 83735; 84443; 84484; 85025; 85610; 85730; 87081; 87086; 93005; 93010; 93017; 93306-TC; 97116-GP; 97161-GP; 99285-25; A9502; G0378; J1644; J2785; J7030

== ENCOUNTER 2023-05-08 11:36 | Inpatient (IN) | payer OTHER ==
[2023-05-08 11:53] VITALS: BMI 43.2
[2023-05-08 13:37] LABS: BASO % 0.8 % (0-2.0); EOS % 3.8 % (0-4.5); HEMATOCRIT 39.9 % (35.4-49); HEMOGLOBIN 13.1 GM/dL (11.7-16.9); LYMPH % 12.5 % (8-40); MCH 26.2 pg (25.7-33.7); MCHC 32.8 g/dl (32.0-35.9); MEAN PLT VOLUME 10.1 fl (7.5-11.1); NEUT % 75.9 % (42.8-82.8); PLATELET COUNT 265 10^3/uL (134-434); RBC 4.99 M/mm3 (4.00-5.60); RDW 16.6 % (11.9-15.9); WHITE BLOOD COUNT 9.8 K/mm3 (4.0-10.0)
[2023-05-08 13:38] LABS: INR 1.1 (0.83-1.09); PROTHROMBIN TIME (PATIENT) 12.8 SEC (9.7-13.0)
[2023-05-08 13:41] LABS: ACTIVATED PTT 37.9 SECONDS (25.2-36.5)
[2023-05-08 13:52] LABS: POTASSIUM 4.6 mmol/L (3.5-5.1)
[2023-05-08 13:54] LABS: CALCIUM 8.8 mg/dL (8.5-10.1)
[2023-05-08 13:55] LABS: ALBUMIN 3.4 g/dl (3.4-5.0); BLOOD UREA NITROGEN 18.2 mg/dL (7-18)
[2023-05-08 13:58] LABS: CREATININE 1.2 mg/dL (0.55-1.3)
[2023-05-08 14:00] LABS: BILIRUBIN,TOTAL 0.8 mg/dL (0.2-1); TOT PROT 6.8 g/dl (6.4-8.2)
[2023-05-08] MEDS ORDERED: ASPIRIN 81 MG CHEWABLE TABLETS PO ONE ×2 (14:16→14:18)
[2023-05-08] MEDS ORDERED: ASPIRIN 81 MG CHEWABLE TABLETS ONE (14:20)
[2023-05-08] MEDS ORDERED: ENOXAPARIN NA (PORCINE) 120 MG/0.8 ML DISP.SYRIN SQ ONE (15:00)
[2023-05-08] MEDS ORDERED: ENOXAPARIN NA (PORCINE) 30 MG/0.3 ML DISP.SYRIN SQ ONE (15:32)
[2023-05-08] MEDS ORDERED: ENOXAPARIN NA (PORCINE) 100 MG/1 ML DISP.SYRIN SQ ONE (15:32)
[2023-05-08] MEDS: ENOXAPARIN NA (PORCINE) 120 MG/0.8 ML DISP.SYRIN SQ SCH (15:50)
[2023-05-08] MEDS ORDERED: GABAPENTIN 300 MG CAPSULE ONE (20:36)
[2023-05-08] MEDS ORDERED: CARBIDOPA/LEVODOPA 25/250 TABLET (FP) ONE (20:36)
[2023-05-08] MEDS ORDERED: SENNOSIDES 8.6MG TABLET (FP) PO ONE (20:36)
[2023-05-08] MEDS ORDERED: ATORVASTATIN CA 40 MG TABLET (FP) ONE (20:36)
[2023-05-08] MEDS: GABAPENTIN 300 MG CAPSULE PO SCH (21:21)
[2023-05-08] MEDS: ATORVASTATIN CA 40 MG TABLET (FP) PO SCH (21:21)
[2023-05-08] MEDS: CARBIDOPA/LEVODOPA 25/250 TABLET (FP) PO SCH (21:21)
[2023-05-08] MEDS: SENNOSIDES 8.6MG TABLET (FP) PO SCH (21:21)
[2023-05-08] MEDS ORDERED: ATORVASTATIN CA 40 MG TABLET (FP) PO SCH (22:00)
[2023-05-08] MEDS: PERPHENAZINE 4 MG TABLET PO SCH (22:02)
[2023-05-09] MEDS ORDERED: ENOXAPARIN NA (PORCINE) 60 MG/0.6 ML DISP.SYRIN SQ ONE (03:09)
[2023-05-09] MEDS: ENOXAPARIN NA (PORCINE) 120 MG/0.8 ML DISP.SYRIN SQ SCH ×2 (03:14→15:17)
[2023-05-09] MEDS ORDERED: GABAPENTIN 300 MG CAPSULE ONE (06:10)
[2023-05-09] MEDS ORDERED: CARBIDOPA/LEVODOPA 25/250 TABLET (FP) ONE (06:10)
[2023-05-09] MEDS ORDERED: metFORMIN HCL 500 MG TABLET (FP) ONE (06:18)
[2023-05-09] MEDS: CARBIDOPA/LEVODOPA 25/250 TABLET (FP) PO SCH ×3 (06:26→21:38)
[2023-05-09] MEDS: GABAPENTIN 300 MG CAPSULE PO SCH ×3 (06:26→21:33)
[2023-05-09] MEDS: PERPHENAZINE 4 MG TABLET PO SCH ×3 (06:26→21:36)
[2023-05-09] MEDS: metFORMIN HCL 500 MG TABLET (FP) PO SCH (06:27)
[2023-05-09] MEDS: TAMSULOSIN HCL 0.4 MG CAP PO SCH (08:30)
[2023-05-09 08:49] LABS: CHOLESTEROL 109 mg/dL (50-200)
[2023-05-09 08:50] LABS: LDL CHOLESTEROL (ONLY SJRH) 61 mg/dL (5-100)
[2023-05-09 08:52] LABS: HDL CHOLESTEROL 42 mg/dL (40-60)
[2023-05-09] MEDS: INSULIN (NOVOLOG) ASPART 100 UNITS/ML 10ML VIAL SQ SCH ×3 (09:26→16:54)
[2023-05-09] MEDS ORDERED: POLYETHYLENE GLYCOL (HEALTHYLAX) 3350 17 GM PACKET ONE (09:30)
[2023-05-09] MEDS ORDERED: POTASSIUM CHLORIDE TABS 20 MEQ TABLET.ER (FP) PO ONE (09:30)
[2023-05-09] MEDS ORDERED: FUROSEMIDE 40 MG TABLET (FP) ONE (09:30)
[2023-05-09] MEDS ORDERED: ASPIRIN COATED 81 MG TABLET.EC ONE (09:30)
[2023-05-09] MEDS ORDERED: metoPROLOL SUCCINATE 25 MG TAB.SR.24H (FP) PO ONE ×2 (09:31→22:28)
[2023-05-09] MEDS ORDERED: TAMSULOSIN HCL 0.4 MG CAP ONE (09:31)
[2023-05-09] MEDS: ASPIRIN COATED 81 MG TABLET.EC PO SCH (09:43)
[2023-05-09] MEDS: CITALOPRAM HYDROBROMIDE 10 MG TABLET PO SCH (09:43)
[2023-05-09] MEDS: POLYETHYLENE GLYCOL (HEALTHYLAX) 3350 17 GM PACKET PO SCH (09:43)
[2023-05-09] MEDS: FUROSEMIDE 40 MG TABLET (FP) PO SCH (09:44)
[2023-05-09] MEDS: POTASSIUM CHLORIDE TABS 20 MEQ TABLET.ER (FP) PO SCH (09:44)
[2023-05-09] MEDS ORDERED: CITALOPRAM HYDROBROMIDE 10 MG TABLET ONE (09:47)
[2023-05-09] MEDS ORDERED: metoPROLOL SUCCINATE 25 MG TAB.SR.24H (FP) PO SCH (10:00)
[2023-05-09] MEDS: INSULIN (NOVOLOG MIX 70/30) 100 UNITS/ML MDV SQ SCH ×2 (10:39→16:54)
[2023-05-09] MEDS ORDERED: MELATONIN 5 MG TABLETS PO PRN (21:22)
[2023-05-09] MEDS: ATORVASTATIN CA 40 MG TABLET (FP) PO SCH (21:33)
[2023-05-09] MEDS: SENNOSIDES 8.6MG TABLET (FP) PO SCH (21:34)
[2023-05-09] MEDS ORDERED: METOPROLOL TARTRATE 5 MG/5 ML VIAL IVPUSH ONE (22:26)
[2023-05-10 00:19] LABS: BASO % 0.8 % (0-2.0); EOS % 0.6 % (0-4.5); HEMATOCRIT 39.4 % (35.4-49); HEMOGLOBIN 13.1 GM/dL (11.7-16.9); LYMPH % 11.1 % (8-40); MCH 26.6 pg (25.7-33.7); MCHC 33.3 g/dl (32.0-35.9); MEAN CELL VOLUME 79.7 fl (80-96); MEAN PLT VOLUME 9.4 fl (7.5-11.1); MONO % 6.7 % (3.8-10.2); NEUT % 80.8 % (42.8-82.8); PLATELET COUNT 207 10^3/uL (134-434); RBC 4.95 M/mm3 (4.00-5.60); RDW 16.4 % (11.9-15.9); WHITE BLOOD COUNT 9.7 K/mm3 (4.0-10.0)
[2023-05-10 00:35] LABS: POTASSIUM 4.2 mmol/L (3.5-5.1)
[2023-05-10 00:37] LABS: CALCIUM 8.3 mg/dL (8.5-10.1); MAGNESIUM 1.4 mg/dL (1.8-2.4)
[2023-05-10 00:38] LABS: BLOOD UREA NITROGEN 16.2 mg/dL (7-18)
[2023-05-10 00:40] LABS: CREATININE 0.8 mg/dL (0.55-1.3)
[2023-05-10] MEDS ORDERED: MAGNESIUM SULF 50% (8.12 MEQ/2 ML-1 GM VIAL) IVPB ONE (01:05)
[2023-05-10] MEDS ORDERED: dilTIAZem HCL 50 MG/10 ML - 10 ML VIAL IVPUSH ONE (01:06)
[2023-05-10] MEDS: CARBIDOPA/LEVODOPA 25/250 TABLET (FP) PO SCH ×3 (06:29→21:23)
[2023-05-10] MEDS: GABAPENTIN 300 MG CAPSULE PO SCH ×3 (06:29→21:23)
[2023-05-10] MEDS: metFORMIN HCL 500 MG TABLET (FP) PO SCH (06:29)
[2023-05-10] MEDS: PERPHENAZINE 4 MG TABLET PO SCH ×3 (06:30→21:23)
[2023-05-10] MEDS: INSULIN (NOVOLOG) ASPART 100 UNITS/ML 10ML VIAL SQ SCH ×3 (06:31→17:52)
[2023-05-10] MEDS: INSULIN (NOVOLOG MIX 70/30) 100 UNITS/ML MDV SQ SCH ×2 (06:31→17:51)
[2023-05-10 06:48] LABS: BASO % 0.3 % (0-2.0); EOS % 0.1 % (0-4.5); HEMATOCRIT 39.4 % (35.4-49); HEMOGLOBIN 12.9 GM/dL (11.7-16.9); LYMPH % 7.7 % (8-40); MCH 26.3 pg (25.7-33.7); MCHC 32.7 g/dl (32.0-35.9); MEAN CELL VOLUME 80.4 fl (80-96); MEAN PLT VOLUME 10.1 fl (7.5-11.1); MONO % 8.3 % (3.8-10.2); NEUT % 83.6 % (42.8-82.8); PLATELET COUNT 234 10^3/uL (134-434); RDW 16.4 % (11.9-15.9)
[2023-05-10 07:06] LABS: CHLORIDE 107 mmol/L (98-107); SODIUM 141 mmol/L (136-145)
[2023-05-10 07:08] LABS: ALBUMIN 3.3 g/dl (3.4-5.0); CALCIUM 8.2 mg/dL (8.5-10.1)
[2023-05-10 07:09] LABS: ANION GAP 6 MMOL/L (8-16); BLOOD UREA NITROGEN 16.9 mg/dL (7-18); CO2 28 mmol/L (21-32); GLUCOSE,RANDOM 170 mg/dL (74-106); MAGNESIUM 1.5 mg/dL (1.8-2.4)
[2023-05-10 07:12] LABS: CREATININE 0.8 mg/dL (0.55-1.3); SGOT/AST 17 U/L (15-37); SGPT/ALT 16 U/L (13-61)
[2023-05-10 07:13] LABS: TOT PROT 6.8 g/dl (6.4-8.2)
[2023-05-10 07:15] LABS: ALK PHOS 97 U/L (45-117)
[2023-05-10] MEDS ORDERED: MAGNESIUM SULFATE IN WATER 4 GM/50 ML BAG IVPB ONE (10:00)
[2023-05-10] MEDS: POTASSIUM CHLORIDE TABS 20 MEQ TABLET.ER (FP) PO SCH (10:31)
[2023-05-10] MEDS: CITALOPRAM HYDROBROMIDE 10 MG TABLET PO SCH (10:31)
[2023-05-10] MEDS: POLYETHYLENE GLYCOL (HEALTHYLAX) 3350 17 GM PACKET PO SCH (10:31)
[2023-05-10] MEDS: FUROSEMIDE 40 MG TABLET (FP) PO SCH (10:31)
[2023-05-10] MEDS: TAMSULOSIN HCL 0.4 MG CAP PO SCH (10:31)
[2023-05-10] MEDS ORDERED: MAGNESIUM 4GM/H20 - 4 GM/100 ML IVPB IVPB ONE (10:48)
[2023-05-10] MEDS: ASPIRIN COATED 81 MG TABLET.EC PO SCH (11:48)
[2023-05-10] MEDS: APIXABAN 5 MG TABLET PO SCH ×2 (11:48→21:24)
[2023-05-10] MEDS: dilTIAZem HCL 30 MG TABLET PO SCH ×2 (12:00→18:15)
[2023-05-10] MEDS: ACETAMINOPHEN 500 MG TABLET (FP) PO PRN (16:37)
[2023-05-10] MEDS: ATORVASTATIN CA 40 MG TABLET (FP) PO SCH (21:23)
[2023-05-10] MEDS: SENNOSIDES 8.6MG TABLET (FP) PO SCH (21:24)
[2023-05-10] MEDS ORDERED: DOXEPIN HCL 25 MG CAPSULE PO ONE (21:45)
[2023-05-10] MEDS: MELATONIN 5 MG TABLETS PO PRN (22:36)
[2023-05-11] MEDS: dilTIAZem HCL 30 MG TABLET PO SCH ×2 (00:16→05:56)
[2023-05-11] MEDS: GABAPENTIN 300 MG CAPSULE PO SCH ×3 (05:56→21:38)
[2023-05-11] MEDS: PERPHENAZINE 4 MG TABLET PO SCH ×3 (05:56→21:38)
[2023-05-11] MEDS: CARBIDOPA/LEVODOPA 25/250 TABLET (FP) PO SCH ×3 (05:56→21:38)
[2023-05-11] MEDS: INSULIN (NOVOLOG) ASPART 100 UNITS/ML 10ML VIAL SQ SCH ×3 (06:00→16:45)
[2023-05-11] MEDS: INSULIN (NOVOLOG MIX 70/30) 100 UNITS/ML MDV SQ SCH (06:00)
[2023-05-11] MEDS: metFORMIN HCL 500 MG TABLET (FP) PO SCH (06:00)
[2023-05-11] MEDS: POLYETHYLENE GLYCOL (HEALTHYLAX) 3350 17 GM PACKET PO SCH (09:45)
[2023-05-11] MEDS: TAMSULOSIN HCL 0.4 MG CAP PO SCH (09:46)
[2023-05-11] MEDS: POTASSIUM CHLORIDE TABS 20 MEQ TABLET.ER (FP) PO SCH (09:46)
[2023-05-11] MEDS: FUROSEMIDE 40 MG TABLET (FP) PO SCH (09:46)
[2023-05-11] MEDS: CITALOPRAM HYDROBROMIDE 10 MG TABLET PO SCH (09:46)
[2023-05-11] MEDS: ASPIRIN COATED 81 MG TABLET.EC PO SCH (09:47)
[2023-05-11] MEDS: APIXABAN 5 MG TABLET PO SCH ×2 (09:47→21:38)
[2023-05-11] MEDS ORDERED: SODIUM CHLORIDE NASAL SPRAY 44 ML BOTTLE NS PRN (10:13)
[2023-05-11 15:44] LABS: BASO % 0.3 % (0-2.0); HEMATOCRIT 36.4 % (35.4-49); HEMOGLOBIN 11.8 GM/dL (11.7-16.9); LYMPH % 5.9 % (8-40); MCH 26.4 pg (25.7-33.7); MCHC 32.6 g/dl (32.0-35.9); MEAN CELL VOLUME 81.2 fl (80-96); MEAN PLT VOLUME 10.2 fl (7.5-11.1); NEUT % 88.8 % (42.8-82.8); PLATELET COUNT 234 10^3/uL (134-434); RBC 4.48 M/mm3 (4.00-5.60); RDW 16.4 % (11.9-15.9); WHITE BLOOD COUNT 12.7 K/mm3 (4.0-10.0)
[2023-05-11] MEDS: ACETAMINOPHEN 500 MG TABLET (FP) PO PRN (15:44)
[2023-05-11 15:52] LABS: POTASSIUM 4.7 mmol/L (3.5-5.1)
[2023-05-11 15:53] LABS: CALCIUM 8.7 mg/dL (8.5-10.1)
[2023-05-11 15:54] LABS: BLOOD UREA NITROGEN 31.7 mg/dL (7-18); MAGNESIUM 1.8 mg/dL (1.8-2.4)
[2023-05-11 15:57] LABS: CREATININE 1.2 mg/dL (0.55-1.3); PHOSPHOROUS 3.2 mg/dL (2.5-4.9)
[2023-05-11] MEDS: ATORVASTATIN CA 40 MG TABLET (FP) PO SCH (21:37)
[2023-05-11] MEDS: DOXEPIN HCL 25 MG CAPSULE PO SCH (21:38)
[2023-05-11] MEDS: SENNOSIDES 8.6MG TABLET (FP) PO SCH ×2 (21:38→21:42)
[2023-05-11] MEDS: MELATONIN 5 MG TABLETS PO PRN (21:43)
[2023-05-12] MEDS: GABAPENTIN 300 MG CAPSULE PO SCH ×3 (05:20→21:37)
[2023-05-12] MEDS: PERPHENAZINE 4 MG TABLET PO SCH ×3 (05:20→21:38)
[2023-05-12] MEDS: metFORMIN HCL 500 MG TABLET (FP) PO SCH (06:14)
[2023-05-12] MEDS: CARBIDOPA/LEVODOPA 25/250 TABLET (FP) PO SCH ×3 (06:19→21:38)
[2023-05-12] MEDS: INSULIN (NOVOLOG) ASPART 100 UNITS/ML 10ML VIAL SQ SCH ×3 (06:20→16:50)
[2023-05-12 08:37] VITALS: RESP 18
[2023-05-12] MEDS: APIXABAN 5 MG TABLET PO SCH ×2 (09:47→21:39)
[2023-05-12] MEDS: ASPIRIN COATED 81 MG TABLET.EC PO SCH (09:47)
[2023-05-12] MEDS: POTASSIUM CHLORIDE TABS 20 MEQ TABLET.ER (FP) PO SCH (09:47)
[2023-05-12] MEDS: TAMSULOSIN HCL 0.4 MG CAP PO SCH (09:47)
[2023-05-12] MEDS: FUROSEMIDE 40 MG TABLET (FP) PO SCH (09:47)
[2023-05-12] MEDS: POLYETHYLENE GLYCOL (HEALTHYLAX) 3350 17 GM PACKET PO SCH (09:48)
[2023-05-12] MEDS: CITALOPRAM HYDROBROMIDE 10 MG TABLET PO SCH (09:48)
[2023-05-12] MEDS: ACETAMINOPHEN 500 MG TABLET (FP) PO PRN ×2 (09:56→18:14)
[2023-05-12] MEDS: ATORVASTATIN CA 40 MG TABLET (FP) PO SCH (21:37)
[2023-05-12] MEDS: SENNOSIDES 8.6MG TABLET (FP) PO SCH (21:38)
[2023-05-12] MEDS: DOXEPIN HCL 25 MG CAPSULE PO SCH (21:38)
[2023-05-13] MEDS: CARBIDOPA/LEVODOPA 25/250 TABLET (FP) PO SCH (06:45)
[2023-05-13] MEDS: metFORMIN HCL 500 MG TABLET (FP) PO SCH (06:45)
[2023-05-13] MEDS: GABAPENTIN 300 MG CAPSULE PO SCH (06:45)
[2023-05-13] MEDS: INSULIN (NOVOLOG) ASPART 100 UNITS/ML 10ML VIAL SQ SCH ×2 (06:46→11:44)
[2023-05-13] MEDS: PERPHENAZINE 4 MG TABLET PO SCH (06:46)
[2023-05-13] MEDS: APIXABAN 5 MG TABLET PO SCH (10:53)
[2023-05-13] MEDS: TAMSULOSIN HCL 0.4 MG CAP PO SCH (10:54)
[2023-05-13] MEDS: FUROSEMIDE 40 MG TABLET (FP) PO SCH (10:54)
[2023-05-13] MEDS: POLYETHYLENE GLYCOL (HEALTHYLAX) 3350 17 GM PACKET PO SCH (10:54)
[2023-05-13] MEDS: POTASSIUM CHLORIDE TABS 20 MEQ TABLET.ER (FP) PO SCH (10:54)
[2023-05-13] MEDS: CITALOPRAM HYDROBROMIDE 10 MG TABLET PO SCH (10:54)
[2023-05-13] MEDS: ACETAMINOPHEN 500 MG TABLET (FP) PO PRN (11:44)
[2023-05-13] MEDS ORDERED: ATORVASTATIN CA 40 MG TABLET (FP) PO SCH (12:30)
[2023-05-13] MEDS ORDERED: LISINOPRIL 5 MG TABLET PO SCH (12:45)
[2023-05-13 15:29] VITALS: BP 135/59; PULSE 98; TEMP 98.2
== END 2023-05-13 15:29 | DRG 281 ==
LOC: JER 11:36 → JERBED 14:25 → UNDOADMOB 14:25 → INTOOBSV 14:25 → JERBED 20:03 → J4S 05-09 10:37 → OBSVTOIN 05-11 15:59
PROVIDERS: ADMIT Internal Medicine; ATTEND Internal Medicine
DX: I21.4 Non-ST elevation (NSTEMI) myocardial infarction (principal); I42.8 Other cardiomyopathies; I47.1 Supraventricular tachycardia; Z68.41 Body mass index [BMI] 40.0-44.9, adult; R55 Syncope and collapse; I10 Essential (primary) hypertension; E78.5 Hyperlipidemia, unspecified; E11.9 Type 2 diabetes mellitus without complications; F25.9 Schizoaffective disorder, unspecified; J44.9 Chronic obstructive pulmonary disease, unspecified; G20 Parkinson's disease; I25.10 Atherosclerotic heart disease of native coronary artery without angina pectoris; Z79.4 Long term (current) use of insulin; I48.0 Paroxysmal atrial fibrillation; E11.42 Type 2 diabetes mellitus with diabetic polyneuropathy; E66.01 Morbid (severe) obesity due to excess calories
CPT/HCPCS: 36415; 71046-TC-FY; 80048; 80053; 80061; 82550; 82962; 83036; 83735; 84100; 84484; 85025; 85610; 85730; 93005; 93010; 93306-TC; 97116-GP; 97162-GP; 99291; G0378

== ENCOUNTER 2024-04-13 14:15 | Observation (INO) | payer OTHER ==
[2024-04-13 14:42] VITALS: BMI 41.8
[2024-04-13 15:24] LABS: BASO % 0.4 % (0-2.0); EOS % 0.1 % (0-4.5); HEMATOCRIT 40.1 % (35.4-49); MCH 28.6 pg (25.7-33.7); MCHC 34.9 g/dl (32.0-35.9); MEAN PLT VOLUME 8.8 fl (7.5-11.1); MONO % 7.4 % (3.8-10.2); NEUT % 78.1 % (42.8-82.8); PLATELET COUNT 263 10^3/uL (134-434); RBC 4.89 M/mm3 (4.00-5.60); RDW 15.5 % (11.9-15.9); WHITE BLOOD COUNT 10.5 K/mm3 (4.0-10.0)
[2024-04-13 15:54] LABS: ACTIVATED PTT 45.1 SECONDS (25.2-36.5); INR 1.24 (0.83-1.09); PROTHROMBIN TIME (PATIENT) 13.9 SEC (9.7-13.0)
[2024-04-13 16:11] LABS: ALBUMIN 3.6 g/dl (3.4-5.0); BILIRUBIN,TOTAL 0.6 mg/dL (0.2-1); BLOOD UREA NITROGEN 18.2 mg/dL (7-18); CALCIUM 8.6 mg/dL (8.5-10.1); CREATININE 1.3 mg/dL (0.55-1.3); MAGNESIUM 1.4 mg/dL (1.8-2.4); TOT PROT 7.1 g/dl (6.4-8.2)
[2024-04-13] MEDS ORDERED: MAGNESIUM SULFATE IN WATER 2 GM/50 ML IVPB IVPB ONE (18:51)
[2024-04-13] MEDS: MAGNESIUM SULFATE IN WATER 2 GM/50 ML IVPB IVPB ONE (18:59)
[2024-04-14 06:32] LABS: BASO % 0.7 % (0-2.0); EOS % 0.3 % (0-4.5); HEMOGLOBIN 13.4 GM/dL (11.7-16.9); LYMPH % 15.8 % (8-40); MCH 28.2 pg (25.7-33.7); MCHC 34.2 g/dl (32.0-35.9); MEAN CELL VOLUME 82.6 fl (80-96); MEAN PLT VOLUME 9.1 fl (7.5-11.1); MONO % 8.1 % (3.8-10.2); NEUT % 75.1 % (42.8-82.8); PLATELET COUNT 222 10^3/uL (134-434); RBC 4.73 M/mm3 (4.00-5.60); RDW 15.3 % (11.9-15.9); WHITE BLOOD COUNT 8.4 K/mm3 (4.0-10.0)
[2024-04-14 07:03] LABS: CALCIUM 8.4 mg/dL (8.5-10.1)
[2024-04-14 07:04] LABS: BLOOD UREA NITROGEN 16.7 mg/dL (7-18)
[2024-04-14 07:07] LABS: CREATININE 0.9 mg/dL (0.55-1.3)
[2024-04-14] MEDS: CITALOPRAM HYDROBROMIDE 10 MG TABLET PO SCH (09:49)
[2024-04-14] MEDS: APIXABAN 5 MG TABLET PO SCH (09:49)
[2024-04-14] MEDS: CARBIDOPA/LEVODOPA 25/100 TABLET (FP) PO SCH (09:49)
[2024-04-14] MEDS: VALSARTAN 40 MG TABLET PO SCH (09:49)
[2024-04-14] MEDS: INSULIN ASPART SLIDING SCALE (NOVOLOG) 1 VIAL SQ SCH (09:55)
[2024-04-14] MEDS: ASPIRIN 81 MG CHEWABLE TABLETS PO SCH (14:02)
[2024-04-14] MEDS ORDERED: FLOMAX 0.4 MG PO SCH (22:00)
[2024-04-14] MEDS: ATORVASTATIN CA 80 MG TABLET (FP) PO SCH (22:18)
[2024-04-15] MEDS: TAMSULOSIN HCL 0.4 MG CAP PO SCH (09:52)
[2024-04-15 10:30] LABS: HEMATOCRIT 41.8 % (35.4-49); MCH 28.1 pg (25.7-33.7); MCHC 33.5 g/dl (32.0-35.9); MEAN CELL VOLUME 83.9 fl (80-96); MEAN PLT VOLUME 9.6 fl (7.5-11.1); PLATELET COUNT 248 10^3/uL (134-434); RBC 4.98 M/mm3 (4.00-5.60); RDW 15.3 % (11.9-15.9); WHITE BLOOD COUNT 9.7 K/mm3 (4.0-10.0)
[2024-04-15] MEDS: METOPROLOL TARTRATE 5 MG/5 ML VIAL IVPUSH PRN (10:52)
[2024-04-15 10:55] LABS: POTASSIUM 4.1 mmol/L (3.5-5.1)
[2024-04-15 10:57] LABS: CALCIUM 8.2 mg/dL (8.5-10.1)
[2024-04-15 10:58] LABS: ALBUMIN 3.1 g/dl (3.4-5.0); BLOOD UREA NITROGEN 17.3 mg/dL (7-18); MAGNESIUM 1.8 mg/dL (1.8-2.4)
[2024-04-15 11:01] LABS: CREATININE 0.8 mg/dL (0.55-1.3)
[2024-04-15 11:03] LABS: BILIRUBIN,TOTAL 0.9 mg/dL (0.2-1); TOT PROT 6.5 g/dl (6.4-8.2)
[2024-04-16 01:51] VITALS: TEMP 98.6
[2024-04-16 15:04] VITALS: BP 146/70; PULSE 94; RESP 20
== END 2024-04-16 19:14 ==
LOC: JER 14:15 → JERBED 18:32 → J4S 04-14 00:07
PROVIDERS: ADMIT Internal Medicine; ATTEND Internal Medicine
PROC: 3E033GC Introduction of Other Therapeutic Substance into Peripheral Vein, Percutaneous Approach (ICD-10-PCS; principal; 2024-04-13)
PROC: 3E013VG Introduction of Insulin into Subcutaneous Tissue, Percutaneous Approach (ICD-10-PCS; 2024-04-13)
PROC: 3E033GC Introduction of Other Therapeutic Substance into Peripheral Vein, Percutaneous Approach (ICD-10-PCS; 2024-04-13)
DX: I48.91 Unspecified atrial fibrillation (principal); I25.10 Atherosclerotic heart disease of native coronary artery without angina pectoris; I11.0 Hypertensive heart disease with heart failure; J44.9 Chronic obstructive pulmonary disease, unspecified; G20.A1 Parkinson's disease without dyskinesia, without mention of fluctuations; F20.9 Schizophrenia, unspecified; Z79.01 Long term (current) use of anticoagulants; E11.9 Type 2 diabetes mellitus without complications; E78.5 Hyperlipidemia, unspecified; F41.8 Other specified anxiety disorders; Z86.19 Personal history of other infectious and parasitic diseases; M19.90 Unspecified osteoarthritis, unspecified site; N40.0 Benign prostatic hyperplasia without lower urinary tract symptoms; Z87.891 Personal history of nicotine dependence; Z86.73 Personal history of transient ischemic attack (TIA), and cerebral infarction without residual deficits
CPT/HCPCS: 36415; 70450-TC; 71045-TC-FY; 72125-TC; 72141-TC; 80048; 80053; 82550; 82962; 83036; 83735; 84439; 84443; 84484; 85025; 85027; 85610; 85730; 93005; 93010; 93306-TC; 96365; 96367; 96372; 96375; 99285-25; G0378

== ENCOUNTER 2024-09-25 12:36 | Inpatient (IN) | payer OTHER ==
[2024-09-25] MEDS ORDERED: dilTIAZem HCL 125 MG/25 ML - 25 ML VIAL ONE (12:56)
[2024-09-25] MEDS: dilTIAZem HCL 50 MG/10 ML - 10 ML VIAL IVPUSH ONE ×2 (13:00→13:55)
[2024-09-25 13:09] VITALS: BMI 36.2
[2024-09-25 13:27] LABS: BASO % 0.6 % (0-2.0); EOS % 0.3 % (0-4.5); HEMATOCRIT 45.7 % (35.4-49); HEMOGLOBIN 15.1 GM/dL (11.7-16.9); LYMPH % 18.9 % (8-40); MCH 27.9 pg (25.7-33.7); MEAN CELL VOLUME 84.5 fl (80-96); MEAN PLT VOLUME 10.4 fl (7.5-11.1); MONO % 6.1 % (3.8-10.2); NEUT % 74.1 % (42.8-82.8); PLATELET COUNT 243 10^3/uL (134-434); RDW 15.3 % (11.9-15.9); WHITE BLOOD COUNT 10.7 K/mm3 (4.0-10.0)
[2024-09-25 13:32] LABS: INR 1.38 (0.83-1.09); PROTHROMBIN TIME (PATIENT) 15.7 SEC (9.7-13.0)
[2024-09-25 13:35] LABS: ACTIVATED PTT 43.3 SECONDS (25.2-36.5)
[2024-09-25] MEDS ORDERED: dilTIAZem HCL 30 MG TABLET ONE (13:56)
[2024-09-25] MEDS: dilTIAZem HCL 30 MG TABLET PO ONE (13:58)
[2024-09-25 14:06] LABS: POTASSIUM 4.1 mmol/L (3.5-5.1)
[2024-09-25 14:08] LABS: ALBUMIN 3.4 g/dl (3.4-5.0); BLOOD UREA NITROGEN 16.7 mg/dL (7-18)
[2024-09-25 14:11] LABS: CREATININE 1.1 mg/dL (0.55-1.3)
[2024-09-25 14:12] LABS: BILIRUBIN,TOTAL 0.9 mg/dL (0.2-1)
[2024-09-25 14:13] LABS: TOT PROT 6.4 g/dl (6.4-8.2)
[2024-09-25] MEDS ORDERED: SODIUM CHLORIDE NASAL SPRAY 44 ML BOTTLE NS PRN (15:19)
[2024-09-25] MEDS: METOPROLOL TARTRATE 25 MG TABLET (FP) PO ONE (16:07)
[2024-09-25] MEDS: INSULIN ASPART SLIDING SCALE (NOVOLOG) 1 VIAL SQ SCH (16:38)
[2024-09-25] MEDS: GABAPENTIN 300 MG CAPSULE PO SCH (21:42)
[2024-09-25] MEDS: TAMSULOSIN HCL 0.4 MG CAP PO SCH (21:42)
[2024-09-25] MEDS: METOPROLOL TARTRATE 50 MG TABLET (FP) PO SCH (21:42)
[2024-09-25] MEDS: SENNOSIDES 8.6MG TABLET (FP) PO SCH (21:42)
[2024-09-25] MEDS: APIXABAN 5 MG TABLET PO SCH (21:42)
[2024-09-25] MEDS: ATORVASTATIN CA 80 MG TABLET (FP) PO SCH (21:42)
[2024-09-25] MEDS: MELATONIN 1 MG TABLET PO SCH (21:42)
[2024-09-25] MEDS: PERPHENAZINE 4 MG TABLET PO SCH (23:14)
[2024-09-26 08:13] LABS: BASO % 0.5 % (0-2.0); EOS % 0.8 % (0-4.5); HEMATOCRIT 42.4 % (35.4-49); HEMOGLOBIN 13.8 GM/dL (11.7-16.9); MCH 28.1 pg (25.7-33.7); MCHC 32.7 g/dl (32.0-35.9); MEAN PLT VOLUME 10.7 fl (7.5-11.1); MONO % 6.9 % (3.8-10.2); NEUT % 66.8 % (42.8-82.8); PLATELET COUNT 175 10^3/uL (134-434); RBC 4.93 M/mm3 (4.00-5.60); RDW 15.3 % (11.9-15.9); WHITE BLOOD COUNT 7.4 K/mm3 (4.0-10.0)
[2024-09-26 08:35] LABS: POTASSIUM 4.2 mmol/L (3.5-5.1)
[2024-09-26 08:45] LABS: CALCIUM 8.8 mg/dL (8.5-10.1)
[2024-09-26 08:46] LABS: BLOOD UREA NITROGEN 18.9 mg/dL (7-18)
[2024-09-26 08:49] LABS: CREATININE 0.9 mg/dL (0.55-1.3)
[2024-09-26] MEDS: CITALOPRAM HYDROBROMIDE 20 MG TABLET PO SCH (11:00)
[2024-09-26] MEDS: FUROSEMIDE 40 MG TABLET (FP) PO SCH (11:00)
[2024-09-26] MEDS: POTASSIUM CHLORIDE TABS 20 MEQ TABLET.ER (FP) PO SCH (11:00)
[2024-09-26] MEDS: LISINOPRIL 5 MG TABLET PO SCH (11:00)
[2024-09-27 08:08] LABS: HEMATOCRIT 40.5 % (35.4-49); HEMOGLOBIN 13.4 GM/dL (11.7-16.9); MCH 27.9 pg (25.7-33.7); MEAN CELL VOLUME 84.5 fl (80-96); MEAN PLT VOLUME 10.5 fl (7.5-11.1); PLATELET COUNT 157 10^3/uL (134-434); RBC 4.79 M/mm3 (4.00-5.60); WHITE BLOOD COUNT 6.8 K/mm3 (4.0-10.0)
[2024-09-27 08:14] LABS: POTASSIUM 3.8 mmol/L (3.5-5.1)
[2024-09-27 08:22] LABS: ALBUMIN 3.4 g/dl (3.4-5.0); BLOOD UREA NITROGEN 19.2 mg/dL (7-18); CALCIUM 8.6 mg/dL (8.5-10.1)
[2024-09-27 08:26] LABS: BILIRUBIN,TOTAL 1.3 mg/dL (0.2-1); CREATININE 0.9 mg/dL (0.55-1.3); TOT PROT 6.1 g/dl (6.4-8.2)
[2024-09-28 08:36] LABS: HEMATOCRIT 40.4 % (35.4-49); HEMOGLOBIN 13.3 GM/dL (11.7-16.9); MCH 27.8 pg (25.7-33.7); MEAN CELL VOLUME 84.2 fl (80-96); MEAN PLT VOLUME 10.2 fl (7.5-11.1); PLATELET COUNT 163 10^3/uL (134-434); RDW 14.6 % (11.9-15.9); WHITE BLOOD COUNT 6.3 K/mm3 (4.0-10.0)
[2024-09-28 08:55] LABS: POTASSIUM 3.8 mmol/L (3.5-5.1)
[2024-09-28 09:00] LABS: CALCIUM 8.5 mg/dL (8.5-10.1)
[2024-09-28 09:01] LABS: ALBUMIN 3.3 g/dl (3.4-5.0); BLOOD UREA NITROGEN 15.6 mg/dL (7-18); MAGNESIUM 1.6 mg/dL (1.8-2.4)
[2024-09-28 09:04] LABS: CREATININE 0.9 mg/dL (0.55-1.3); PHOSPHOROUS 3.4 mg/dL (2.5-4.9)
[2024-09-28 09:05] LABS: BILIRUBIN,TOTAL 1.1 mg/dL (0.2-1); TOT PROT 6.3 g/dl (6.4-8.2)
[2024-09-28] MEDS: MAGNESIUM 2GM/50ML STERILE WATER IVPB IVPB ONE (09:52)
[2024-09-28] MEDS: PERPHENAZINE 4 MG TABLET PO SCH (09:52)
[2024-09-28] MEDS: SELENIUM SULFIDE 2.25% 180 ML SHAMPOO TP SCH (09:52)
[2024-09-28] MEDS: CITALOPRAM HYDROBROMIDE 10 MG TABLET PO SCH (09:52)
[2024-09-28] MEDS ORDERED: SELENIUM SULFIDE 2.25% 180 ML SHAMPOO TP SCH (10:00)
[2024-09-28] MEDS: METOPROLOL TARTRATE 25 MG TABLET (FP) PO SCH (13:16)
[2024-09-28] MEDS: NAPH,MB-DB/K PH,MBDB POWDER PACKET PO ONE (14:59)
[2024-09-28] MEDS: KETOCONAZOLE 2 % SHAMPOO 120 ML BOTTLE TP SCH (18:18)
[2024-09-29] MEDS: FINASTERIDE 5 MG TABLET (FP) PO SCH (09:14)
[2024-09-30 09:07] LABS: HEMOGLOBIN 12.6 GM/dL (11.7-16.9); MCH 28.1 pg (25.7-33.7); MCHC 33.3 g/dl (32.0-35.9); MEAN CELL VOLUME 84.4 fl (80-96); MEAN PLT VOLUME 10.1 fl (7.5-11.1); PLATELET COUNT 148 10^3/uL (134-434); RDW 14.6 % (11.9-15.9); WHITE BLOOD COUNT 5.3 K/mm3 (4.0-10.0)
[2024-09-30 09:14] LABS: POTASSIUM 3.7 mmol/L (3.5-5.1)
[2024-09-30 09:18] LABS: ALBUMIN 3.1 g/dl (3.4-5.0); CALCIUM 8.6 mg/dL (8.5-10.1); MAGNESIUM 1.7 mg/dL (1.8-2.4)
[2024-09-30 09:19] LABS: BLOOD UREA NITROGEN 13.6 mg/dL (7-18)
[2024-09-30 09:21] LABS: CREATININE 0.8 mg/dL (0.55-1.3)
[2024-09-30 09:22] LABS: PHOSPHOROUS 2.4 mg/dL (2.5-4.9)
[2024-09-30 09:23] LABS: TOT PROT 5.8 g/dl (6.4-8.2)
[2024-09-30] MEDS: NAPH,MB-DB/K PH,MBDB POWDER PACKET PO ONE (14:27)
[2024-09-30] MEDS: MAGNESIUM SULFATE IN WATER 2 GM/50 ML IVPB IVPB ONE (14:27)
[2024-09-30] MEDS: DRONEDARONE HCL 400 MG TAB (FP) PO SCH (21:18)
[2024-10-01 09:18] LABS: HEMATOCRIT 39.6 % (35.4-49); HEMOGLOBIN 13.6 GM/dL (11.7-16.9); MCH 28.4 pg (25.7-33.7); MCHC 34.3 g/dl (32.0-35.9); MEAN CELL VOLUME 82.8 fl (80-96); PLATELET COUNT 175 10^3/uL (134-434); RBC 4.78 M/mm3 (4.00-5.60); RDW 14.7 % (11.9-15.9); WHITE BLOOD COUNT 7.7 K/mm3 (4.0-10.0)
[2024-10-01] MEDS: ACETAMINOPHEN 325 MG TABLET (FP) PO PRN (09:47)
[2024-10-01 09:51] LABS: POTASSIUM 3.7 mmol/L (3.5-5.1)
[2024-10-01 10:07] LABS: ALBUMIN 3.4 g/dl (3.4-5.0)
[2024-10-01 10:09] LABS: CALCIUM 8.7 mg/dL (8.5-10.1); MAGNESIUM 1.9 mg/dL (1.8-2.4)
[2024-10-01 10:11] LABS: CREATININE 0.8 mg/dL (0.55-1.3)
[2024-10-01 10:12] LABS: BILIRUBIN,TOTAL 1.3 mg/dL (0.2-1); PHOSPHOROUS 2.7 mg/dL (2.5-4.9)
[2024-10-01 10:13] LABS: TOT PROT 6.3 g/dl (6.4-8.2)
[2024-10-02 10:22] LABS: CHLORIDE 103 mmol/L (98-107); POTASSIUM 3.7 mmol/L (3.5-5.1); SODIUM 139 mmol/L (136-145)
[2024-10-02 10:27] LABS: ALBUMIN 3.2 g/dl (3.4-5.0); ANION GAP 5 mmol/L (4-13); BLOOD UREA NITROGEN 10.7 mg/dL (7-18); CALCIUM 8.5 mg/dL (8.5-10.1); CO2 31 mmol/L (21-32); GLUCOSE,RANDOM 144 mg/dL (74-106)
[2024-10-02 10:30] LABS: CREATININE 0.8 mg/dL (0.55-1.3); HEMATOCRIT 37.3 % (35.4-49); HEMOGLOBIN 12.9 GM/dL (11.7-16.9); MAGNESIUM 1.7 mg/dL (1.8-2.4); MCH 28.9 pg (25.7-33.7); MCHC 34.5 g/dl (32.0-35.9); MEAN CELL VOLUME 83.6 fl (80-96); MEAN PLT VOLUME 10.1 fl (7.5-11.1); PHOSPHOROUS 2.5 mg/dL (2.5-4.9); PLATELET COUNT 173 10^3/uL (134-434); RBC 4.46 M/mm3 (4.00-5.60); RDW 14.5 % (11.9-15.9); SGOT/AST 9 U/L (15-37); WHITE BLOOD COUNT 6.4 K/mm3 (4.0-10.0)
[2024-10-02 10:31] LABS: SGPT/ALT < 6 U/L (13-61)
[2024-10-02 10:32] LABS: BILIRUBIN,TOTAL 1.4 mg/dL (0.2-1); TOT PROT 6.2 g/dl (6.4-8.2)
[2024-10-02 10:33] LABS: ALK PHOS 93 U/L (45-117)
[2024-10-02] MEDS ORDERED: ATORVASTATIN CA 40 MG TABLET (FP) ONE (21:16)
[2024-10-03] MEDS: DOCUSATE SODIUM 100 MG CAPSULE (FP) PO PRN (11:22)
[2024-10-03] MEDS ORDERED: ACETAMINOPHEN 325 MG TABLET (FP) PO PRN (11:34)
[2024-10-03] MEDS: MAGNESIUM HYDROX 2400MG/30ML ORAL SUSPENSION 30 ML CUP PO PRN (14:25)
[2024-10-03] MEDS: KETOCONAZOLE 2% TOPICAL CREAM 15 GM TUBE TP SCH (17:35)
[2024-10-04 08:03] LABS: BASO % 0.3 % (0-2.0); HEMATOCRIT 37.8 % (35.4-49); HEMOGLOBIN 12.9 GM/dL (11.7-16.9); LYMPH % 25.6 % (8-40); MCH 28.8 pg (25.7-33.7); MCHC 34.2 g/dl (32.0-35.9); MEAN PLT VOLUME 9.7 fl (7.5-11.1); MONO % 9.7 % (3.8-10.2); NEUT % 63.4 % (42.8-82.8); PLATELET COUNT 181 10^3/uL (134-434); RDW 14.7 % (11.9-15.9); WHITE BLOOD COUNT 4.6 K/mm3 (4.0-10.0)
[2024-10-04 08:12] LABS: CHLORIDE 103 mmol/L (98-107); POTASSIUM 3.6 mmol/L (3.5-5.1); SODIUM 139 mmol/L (136-145)
[2024-10-04 08:16] LABS: ALBUMIN 3.2 g/dl (3.4-5.0); ANION GAP 5 mmol/L (4-13); CALCIUM 8.7 mg/dL (8.5-10.1); CO2 31 mmol/L (21-32); GLUCOSE,RANDOM 142 mg/dL (74-106); MAGNESIUM 1.8 mg/dL (1.8-2.4)
[2024-10-04 08:17] LABS: BLOOD UREA NITROGEN 12.6 mg/dL (7-18)
[2024-10-04 08:19] LABS: CREATININE 0.9 mg/dL (0.55-1.3); PHOSPHOROUS 2.7 mg/dL (2.5-4.9)
[2024-10-04 08:20] LABS: SGOT/AST 8 U/L (15-37)
[2024-10-04 08:21] LABS: TOT PROT 6.1 g/dl (6.4-8.2)
[2024-10-04 08:22] LABS: ALK PHOS 79 U/L (45-117)
[2024-10-04 08:23] LABS: SGPT/ALT < 6 U/L (13-61)
[2024-10-04] MEDS: MINERAL OIL ENEMA 133 ML ENEMA RC ONE (10:28)
[2024-10-04] MEDS: MAGNESIUM HYDROX 2400MG/30ML ORAL SUSPENSION 30 ML CUP PO ONE (10:28)
[2024-10-04] MEDS: LIDOCAINE 5% TOPICAL PATCH TP SCH (10:28)
[2024-10-04] MEDS ORDERED: KETOCONAZOLE 2 % SHAMPOO 120 ML BOTTLE TP SCH (11:32)
[2024-10-04 15:24] VITALS: BP 148/71; PULSE 50; RESP 17; TEMP 98.1
[2024-10-04] MEDS ORDERED: LIDOCAINE PATCH REMOVAL MC SCH (22:00)
== END 2024-10-04 15:50 | DRG 309 ==
LOC: JER 12:36 → JERBED 14:23 → OBSVTOIN 15:20 → J4S 15:38
PROVIDERS: ADMIT Internal Medicine; ATTEND Internal Medicine
DX: I48.0 Paroxysmal atrial fibrillation (principal); I24.89 Other forms of acute ischemic heart disease; I50.32 Chronic diastolic (congestive) heart failure; J44.9 Chronic obstructive pulmonary disease, unspecified; I25.10 Atherosclerotic heart disease of native coronary artery without angina pectoris; E78.5 Hyperlipidemia, unspecified; F25.9 Schizoaffective disorder, unspecified; I47.10 Supraventricular tachycardia, unspecified; F32.A Depression, unspecified; F41.9 Anxiety disorder, unspecified; I11.0 Hypertensive heart disease with heart failure; I95.1 Orthostatic hypotension; G20.A1 Parkinson's disease without dyskinesia, without mention of fluctuations; E11.42 Type 2 diabetes mellitus with diabetic polyneuropathy; B35.0 Tinea barbae and tinea capitis; B35.3 Tinea pedis; M25.562 Pain in left knee
CPT/HCPCS: 36415; 71045-TC-FY; 80048; 80053; 82962; 83036; 83735; 84100; 84439; 84443; 84484; 85025; 85027; 85610; 85730; 86850; 86900; 86901; 87081; 87635; 93005; 93010; 97116-GP; 97161-GP; 99285-25; G0378

== ENCOUNTER 2025-04-12 16:57 | Inpatient (IN) | payer OTHER ==
[2025-04-12 17:56] LABS: MCHC 31.5 g/dl (32.3-36.5); MEAN CELL VOLUME 83.8 fl (79.0-92.2); MEAN PLT VOLUME 11.5 fl (9.4-12.4); RDW 14.6 % (12.2-16.6)
[2025-04-12 18:03] LABS: INR 1.55 (0.83-1.09); PROTHROMBIN TIME (PATIENT) 17.1 SEC (9.7-13.0)
[2025-04-12 18:06] LABS: ACTIVATED PTT 42.6 SECONDS (25.2-36.5)
[2025-04-12 18:16] LABS: CO2 31.0 mmol/L (21-32)
[2025-04-12 18:17] LABS: GLUCOSE,RANDOM 119.0 mg/dL (74-106)
[2025-04-12 18:19] LABS: SGOT/AST 13.0 U/L (15-37); SGPT/ALT 8.0 U/L (13-61)
[2025-04-12 18:20] LABS: CREATININE 0.9 mg/dL (0.55-1.3)
[2025-04-12 18:21] LABS: TOT PROT 5.8 g/dl (6.4-8.2)
[2025-04-12 18:22] LABS: ALK PHOS 90.0 U/L (45-117)
[2025-04-12] MEDS ORDERED: POTASSIUM CHLORIDE ORAL LIQUID 20 MEQ/15 ML ONE (18:30)
[2025-04-12] MEDS ORDERED: MAGNESIUM SULFATE IN WATER 2 GM/50 ML IVPB IVPB ONE (18:31)
[2025-04-12] MEDS: POTASSIUM CHLORIDE ORAL LIQUID 20 MEQ/15 ML PO ONE (18:34)
[2025-04-12] MEDS: MAGNESIUM SULFATE IN WATER 2 GM/50 ML IVPB IVPB ONE (18:40)
[2025-04-12] MEDS ORDERED: KCL 10 MEQ IVPB 10 MEQ/100 ML INFUS.BAG IVPB ONE ×3 (19:11→21:22)
[2025-04-12] MEDS: KCL 10 MEQ IVPB 10 MEQ/100 ML INFUS.BAG IVPB SCH (19:30)
[2025-04-12 20:11] LABS: HIV INTERPRETATION NEGATIVE (NEGATIVE)
[2025-04-12 20:17] LABS: HCV DIAGNOSTIC IN-HOUSE W/RFLX REACTIVE (NONREACTIVE)
[2025-04-13 01:41] VITALS: BMI 33.5
[2025-04-13] MEDS: MELATONIN 5 MG TABLETS PO ONE ×3 (03:00→22:25)
[2025-04-13 07:48] LABS: ABSOLUTE IMMATURE GRANULOCYTES 0.02 x10^3/uL (0.0-0.031); BASOPHILS # 0.04 x10^3/uL (0.01-0.08); EOSINOPHIL % 1.0 % (0.8-7.0); EOSINOPHILS # 0.05 x10^3/uL (0.04-0.54); MCHC 31.5 g/dl (32.3-36.5); MEAN CELL VOLUME 84.1 fl (79.0-92.2); MEAN PLT VOLUME 11.9 fl (9.4-12.4); MONOCYTE # 0.44 x10^3/uL (0.30-0.82); MONOCYTE % 8.5 % (5.3-12.2); RDW 14.6 % (12.2-16.6)
[2025-04-13 08:15] LABS: CO2 29.0 mmol/L (21-32); GLUCOSE,RANDOM 117.0 mg/dL (74-106)
[2025-04-13 08:18] LABS: CREATININE 0.8 mg/dL (0.55-1.3); SGOT/AST 11.0 U/L (15-37); SGPT/ALT 15.0 U/L (13-61)
[2025-04-13 08:19] LABS: LDL CHOLESTEROL (ONLY SJRH) 47.0 mg/dL (5-100); TOT PROT 6.0 g/dl (6.4-8.2)
[2025-04-13 08:20] LABS: ALK PHOS 89.0 U/L (45-117)
[2025-04-13] MEDS ORDERED: ACETAMINOPHEN 325 MG TABLET (FP) PO PRN (09:08)
[2025-04-13] MEDS ORDERED: DOCUSATE SODIUM 100 MG CAPSULE (FP) PO PRN (09:08)
[2025-04-13] MEDS: APIXABAN 5 MG TABLET PO SCH (10:48)
[2025-04-13] MEDS: ASCORBIC ACID 250 MG TABLET (FP) PO SCH (10:48)
[2025-04-13] MEDS: CITALOPRAM HYDROBROMIDE 10 MG TABLET PO SCH (10:48)
[2025-04-13] MEDS: MAGNESIUM HYDROX 2400MG/30ML ORAL SUSPENSION 30 ML CUP PO PRN (10:48)
[2025-04-13] MEDS: CHOLECALCIFEROL (VIT D3) 1,000 UNIT (25 MCG) TABLET PO SCH (10:48)
[2025-04-13] MEDS: POTASSIUM CHLORIDE TABS 20 MEQ TABLET.ER (FP) PO SCH (10:49)
[2025-04-13] MEDS: FINASTERIDE 5 MG TABLET (FP) PO SCH (10:49)
[2025-04-13] MEDS: SODIUM CHLORIDE NASAL SPRAY 44 ML BOTTLE NS PRN (10:50)
[2025-04-13] MEDS: DRONEDARONE HCL 400 MG TAB (FP) PO SCH (10:51)
[2025-04-13] MEDS: PERPHENAZINE 2 MG TABLET PO SCH (10:51)
[2025-04-13] MEDS: LIDOCAINE 5% TOPICAL PATCH TP SCH (10:53)
[2025-04-13] MEDS ORDERED: INSULIN ASPART SLIDING SCALE (NOVOLOG) 1 VIAL SQ SCH (11:00)
[2025-04-13] MEDS: CARBIDOPA/LEVODOPA 25/250 TABLET (FP) PO SCH (13:14)
[2025-04-13] MEDS: GABAPENTIN 300 MG CAPSULE PO SCH (13:28)
[2025-04-13] MEDS: MAGNESIUM 1GM/D5W 100ML - 100 ML IVPB IVPB ONE (16:36)
[2025-04-13] MEDS: KETOCONAZOLE 2 % SHAMPOO 120 ML BOTTLE TP SCH (17:44)
[2025-04-13] MEDS: ATORVASTATIN CA 80 MG TABLET (FP) PO SCH (21:45)
[2025-04-13] MEDS: SENNOSIDES 8.6MG TABLET (FP) PO SCH (21:45)
[2025-04-13] MEDS: LIDOCAINE PATCH REMOVAL MC SCH (21:46)
[2025-04-14 06:51] LABS: ABSOLUTE IMMATURE GRANULOCYTES 0.05 x10^3/uL (0.0-0.031); BASOPHILS # 0.05 x10^3/uL (0.01-0.08); EOSINOPHIL % 1.3 % (0.8-7.0); EOSINOPHILS # 0.07 x10^3/uL (0.04-0.54); MCHC 31.7 g/dl (32.3-36.5); MEAN CELL VOLUME 84.1 fl (79.0-92.2); MEAN PLT VOLUME 12.3 fl (9.4-12.4); MONOCYTE # 0.51 x10^3/uL (0.30-0.82); MONOCYTE % 9.1 % (5.3-12.2); RDW 14.6 % (12.2-16.6)
[2025-04-14 07:24] LABS: CO2 28.0 mmol/L (21-32); GLUCOSE,RANDOM 128.0 mg/dL (74-106)
[2025-04-14 07:27] LABS: CREATININE 0.7 mg/dL (0.55-1.3); SGOT/AST 17.0 U/L (15-37); SGPT/ALT 9.0 U/L (13-61)
[2025-04-14 07:29] LABS: TOT PROT 5.6 g/dl (6.4-8.2)
[2025-04-14 07:30] LABS: ALK PHOS 84.0 U/L (45-117)
[2025-04-14] MEDS: AMINO ACIDS/PROTEIN HYDROLYS 30 ML LIQUID.PKT PO SCH (09:21)
[2025-04-14] MEDS: TAMSULOSIN HCL 0.4 MG CAP PO SCH (09:21)
[2025-04-14] MEDS: INSULIN ASPART SLIDING SCALE (NOVOLOG) 1 VIAL SQ SCH (17:46)
[2025-04-14] MEDS: DRONEDARONE HCL 400 MG TAB (FP) PO SCH (22:31)
[2025-04-14] MEDS: MELATONIN 5 MG TABLETS PO ONE (23:22)
[2025-04-15 07:02] LABS: ABSOLUTE IMMATURE GRANULOCYTES 0.02 x10^3/uL (0.0-0.031); BASOPHILS # 0.03 x10^3/uL (0.01-0.08); EOSINOPHIL % 1.5 % (0.8-7.0); EOSINOPHILS # 0.08 x10^3/uL (0.04-0.54); MCHC 31.7 g/dl (32.3-36.5); MEAN CELL VOLUME 84.2 fl (79.0-92.2); MEAN PLT VOLUME 11.8 fl (9.4-12.4); MONOCYTE # 0.45 x10^3/uL (0.30-0.82); MONOCYTE % 8.7 % (5.3-12.2); RDW 14.6 % (12.2-16.6)
[2025-04-15 07:20] LABS: CO2 27.0 mmol/L (21-32); GLUCOSE,RANDOM 146.0 mg/dL (74-106)
[2025-04-15 07:23] LABS: CREATININE 0.7 mg/dL (0.55-1.3); SGOT/AST 16.0 U/L (15-37); SGPT/ALT 10.0 U/L (13-61)
[2025-04-15 07:25] LABS: TOT PROT 5.7 g/dl (6.4-8.2)
[2025-04-15 07:26] LABS: ALK PHOS 85.0 U/L (45-117)
[2025-04-15] MEDS: MELATONIN 5 MG TABLETS PO SCH (21:34)
[2025-04-17 05:30] VITALS: PULSE 47; RESP 16
[2025-04-17 14:41] VITALS: BP 137/58; TEMP 98.1
== END 2025-04-17 17:25 | DRG 309 ==
LOC: JER 16:57 → JERBED 17:41 → J4S 04-13 01:27
PROVIDERS: ADMIT Internal Medicine; ATTEND Internal Medicine
DX: I48.92 Unspecified atrial flutter (principal); I50.40 Unspecified combined systolic (congestive) and diastolic (congestive) heart failure; I47.20 Ventricular tachycardia, unspecified; E11.621 Type 2 diabetes mellitus with foot ulcer; L97.529 Non-pressure chronic ulcer of other part of left foot with unspecified severity; F25.9 Schizoaffective disorder, unspecified; E11.610 Type 2 diabetes mellitus with diabetic neuropathic arthropathy; G20.A1 Parkinson's disease without dyskinesia, without mention of fluctuations; I25.10 Atherosclerotic heart disease of native coronary artery without angina pectoris; Z95.5 Presence of coronary angioplasty implant and graft; I11.0 Hypertensive heart disease with heart failure
CPT/HCPCS: 36415; 71045-TC-FY; 80048; 80053; 80061; 82550; 82962; 83036; 83735; 84100; 84443; 84484; 85025; 85027; 85610; 85730; 86803; 87389; 87522; 93005; 93010; 97116-GP; 97162-GP; 99285-25